=== PATIENT | female | born 2000 | race Caucasian/White ===

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

== ENCOUNTER 2022-09-09 14:04 | Emergency (ER) | payer BC ==
--- OUTSIDE RECORDS SUMMARY | 2022-09-09 14:12 | XMS REPORT | Continuity of Care Document ---
:2000 Author Organization [facility] t Address [address] [place] [address] [address] [place] [address] Care Team Providers Name Role Phone TORI POSADA Primary Care Physician Unavailable MITCHELL JOSHUA Attending Clinician Unavailable Mitchell Novak Attending Clinician Unknown, Attending Attending Clinician Unavailable Doctor Unassigned, [place] Attending Clinician Unavailable MARGARET DOVE Attending Clinician Unavailable Nurse, [facility] Attending Clinician Unavailable Tori Posada MD Attending Clinician Lynda Montesinos MD Attending Clinician Margaret Dove MD Attending Clinician Juan Nayak MD Attending Clinician Laura Couch MD Attending Clinician TORI POSADA Attending Clinician Unavailable Pob, [facility] Lab Main Attending Clinician Unavailable Ultrasound, [facility] Attending Clinician Unavailable Guerita Dugan MD Attending Clinician GUERITA DUGAN Attending Clinician Unavailable Milagros Peralat MD Attending Clinician [phone] MARGARET DOVE Admitting Clinician Unavailable Juan Nayak MD Admitting Clinician JUAN NAYAK Admitting Clinician Unavailable Margaret Dove MD Admitting Clinician Milagros Peralta MD Admitting Clinician [phone] Payers Payer Name Policy Type Policy Number Effective Date Expiration Date Paula childress [facility] [id number] 2016 EMPLOYEE PLAN 00:00:00 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 6-11 ity of 00:00: [address] Normal Normal Disease Active 2020-0 Univers spontaneou spontaneou 6-11 [place] of s vaginal s vaginal [place] 00 [facility] Uterine Uterine Disease Active 2020-0 Univers atony, atony, 6-11 [place] , [place] , current 00 [facility] hospital Br anch ation ation Other Other Disease Active 2020-0 Univers immediate immediate 6-11 [place] hemorrhage hemorrhage 00 [place] [facility] [facility] Recurrent Recurrent Disease Active 2020-0 Uni vers UTI UTI 1-20 ity of (urinary (urinary 00:00: [place] tract tract 00 Medical infection) infection) Br anch complicati complicati ng ng High risk High risk Disease Active 2020-0 Uni vers teen teen 1-19 [place] in third in third 00 [facility] trimester trimester Bran ch Nausea & Nausea & Disease Active 2020-0 Unive rs vomiting vomiting 1-19 ity of 00:00: [place] 00 [facility] 17 weeks 17 weeks Disease Active 2020-0 Unive rs gestation gestation 1-19 ity of of of 00:00: [place] 00 [facility] Obesity in Obesity in Disease Active 2020-0 U nivers 1-19 ity of 00:00: [address] 37 weeks 37 weeks Disease Active 2020-0 Unive rs gestation gestation 1-19 ity of of of 00:00: [place] 00 [facility] Allergies, Adverse Reactions, Alerts Allergy Allergy Status Severity Reaction(s) Onset Inactive Treating Comm ents Source Name Type Date Date Clinician NO KNOWN Drug Active [facility] ALLERGIE Class ity of S [place] [facility] [place] Social History Social Habit Start Date Stop Date Quantity Comments Source ASSERTION 2019-01-22 [facility] 00:[facility]00 [facility] Exposure to Not sure University of SARS-CoV-2 [place] [facility] (event) Branch History SDWA University o f Alcohol Std [place] [facility] Drinks Branch History [facility] o f Alcohol Binge [place] [facility] al Branch Alcohol intake 2022-02-21 2022-02-21 Lifetime University of 00:00:00 00:00:00 non-drinker [facility] (finding) Branch Tobacco use and 2022-02-21 2022-02-21 Former smokeless Uni versity of exposure 00:00:00 00:00:00 tobacco user [facility] Branch Tobacco Comment 2022-02-21 2022-02-21 past use of vapes Un iversity of 00:00:00 00:00:00 [place] [facility] [place] History SDOH 2019-02-11 2019-02-11 1 University o f Alcohol Frequency 00:00:00 [facility]:00:00 [facility] [place] Sex Assigned At [birth year] Universit y of 00:00:00 [facility]:00 [facility] Smoking Status Start Date Stop Date Source Never smoked tobacco [facility] Medications Ordered Filled Start Stop Current Ordering Indication Dosage Frequency Signature Comments Components Source Medication Medication Date Date Medication? Clinician (SIG) Name Name cefTRIAXone 2021-04- No [id number] 500mg Univers (ROCEPHIN) 04-23 ity of injection 23:30: 22:52 [place] 500 mg 00 :00 [facility] Branch cefTRIAXone 2021-04- No [id number] 500mg 500 mg, Univers (ROCEPHIN) 04-23 Intramuscu it y of injection 23:30: 22:52 lar, ONCE, [place] 500 mg 00 :00 1 dose, On Medical [place] Branch 02/21/22 at 1830, LATOSHA
Re ason for Anti-Infec tive: Empiric Therapy for Suspected Infection< br>Empiric Therapy Site: Pelvic
Duration of therapy: 72 hours 2021-04 Yes Take by Univer s vit 04-23 mouth. ity of calc,iron,f 17:15: [place] olic 36 Medical ( Branch VITAMIN ORAL) doxycycline 2021-04- No [id number] 100mg Take 1 Univers monohydrate 04-23 11-11 capsule by i ty of 100 mg 00:00: 05:59 mouth in [place] capsule 00 :00 the Medical morning Branch and 1 capsule in the evening. Do all this for 7 days. 2019-0 Yes Take by Univer s vit 6-13 mouth. ity of calc,iron,f 23:47: [place] [address] Medical ( Branch VITAMIN ORAL) 0 Yes Take by Univer s vit 6-13 mouth. ity of calc,iron,f 23:47: [place] [address] Medical ( Branch VITAMIN ORAL) 0 Yes Take by Videostirer s vit 6-13 mouth. ity of calc,iron,f 18:47: [place] [address] Medical ( Branch VITAMIN ORAL) cephALEXin 2019-0 Yes [id number] 500mg Take 1 Univers 500 mg 6-13 capsule by ity of capsule 00:00: mouth 3 [place] 00 (three) Medical times Branch daily. docusate 2020-0 Yes [id number] 240mg Take 1 Un sonido calcium 240 6-13 capsule by it y of mg capsule 00:00: mouth once [place] 00 daily as Medical needed for Branch Constipati on. ferrous 2020-0 Yes [id number] 325mg Take 1 Uni vers sulfate 325 6-13 tablet by ity of mg (65 mg 00:00: mouth 2 [place] iron) 00 (two) Medical tablet times Branch daily. ibuprofen 2019-0 Yes [id number] 600mg Take 1 U nivers 600 mg 6-13 tablet by ity of tablet 00:00: mouth [place] 00 every 6 Medical (six) Branch hours as needed (Pain). Take with food or milk. cephALEXin 2020-0 Yes [id number] 500mg Take 1 Univers 500 mg 6-13 capsule by ity of capsule 00:00: mouth 3 [place] 00 (three) Medical times Branch daily. docusate 2020-0 Yes [id number] 240mg Take 1 Un sonido calcium 240 6-13 capsule by it y of mg capsule 00:00: mouth once [place] 00 daily as Medical needed for Branch Constipati on. ferrous 2020-0 Yes [id number] 325mg Take 1 Uni vers sulfate 325 6-13 tablet by ity of mg (65 mg 00:00: mouth 2 [place] iron) 00 (two) Medical tablet times Branch daily. ibuprofen 2020-0 Yes [id number] 600mg Take 1 U nivers 600 mg 6-13 tablet by ity of tablet 00:00: mouth [place] 00 every 6 Medical (six) Branch hours as needed (Pain). Take with food or milk. cephALEXin 2020-0 Yes [id number] 500mg Take 1 Univers 500 mg 6-13 capsule by ity of capsule 00:00: mouth 3 [place] 00 (three) Medical times Branch daily. docusate 2020-0 Yes [id number] 240mg Take 1 Un sonido calcium 240 6-13 capsule by it y of mg capsule 00:00: mouth once [place] 00 daily as Medical needed for Branch Constipati on. ferrous 2020-0 Yes [id number] 325mg Take 1 Uni vers sulfate 325 6-13 tablet by ity of mg (65 mg 00:00: mouth 2 [place] iron) 00 (two) Medical tablet times Branch daily. ibuprofen 2020-0 Yes [id number] 600mg Take 1 U nivers 600 mg 6-13 tablet by ity of tablet 00:00: mouth [place] 00 every 6 Medical (six) Branch hours as needed (Pain). Take with food or milk. cephALEXin 2020-0 Yes [id number] 500mg Take 1 Univers 500 mg 6-13 capsule by ity of capsule 00:00: mouth 3 00 (three) Medical times Branch daily. docusate 2020-0 Yes [id number] 240mg Take 1 Un sonido calcium 240 6-13 capsule by it y of mg capsule 00:00: mouth once [place] 00 daily as Medical needed for Branch Constipati on. ferrous 2020-0 Yes [id number] 325mg Take 1 Uni vers sulfate 325 6-13 tablet by ity of mg (65 mg 00:00: mouth 2 [place] iron) 00 (two) Medical tablet times Branch daily. ibuprofen 2020-0 Yes [id number] 600mg Take 1 U nivers 600 mg [...] Yes 325mg 325 mg, Univer s sulfate -12 Oral, TID ity of tablet 325 13:00: MEALS, [place] mg 00 First dose Medical on Fri Branch 10/01/19 at 0800, Until Discontinu ed, Routine NaCl 0.9% 2020-0 Yes 1000mL at 100 [facility] ers (NS) IV 6-12 mL/hr, IV ity of infusion 04:00: [place]fusion, [place] 1,000 mL 00 CONTINUOUS Medic al , Starting Branch [facility] 09/30/19 at 2300, Until Discontinu ed, Routine ceFAZolin 0 2020- No 1000mg 1,000 mg, [facility] (ANCEF) 09-2912 IV ity of 1,000 mg in 19:00: 08:08 Piggyback, [place] NaCl 0.9% 00 :00 Q6H ABX, 3 Medi fabby (NS) 50 mL doses, [place] MINI-BAG First dose on [place] 09/30/19 at 1400, Last dose on Fri10/01/19 at 0200, 50 mL
Reas on for Anti-Infec tive: Empiric Non-Surgic al Prophylaxi s
Durat ion of therapy: 72 hours
S pecific indication : Endometrit is prophylaxi s lactated 2019-0 2020- No 1000mL at 999 [facility] ers ringers IV 09-29-11 mL/hr, ity of infusion 17:45: 17:47 1,000 mL, [place] 1,000 mL 00 :00 IV Medical Infusion, [place] ONCE, 1 dose, [facility] 09/30/19 at 1300, STAT loperamide 2019-0 Yes 2mg 2 mg, Univer s (IMODIUM -11 Oral, ity of A-D) 14:26: Q4HPRN, [place] capsule 2 19 Starting Medica l mg [facility] 09/30/19 at 0926, Until Discontinu ed, Routine, Diarrhea 2019-0 Yes 1{tbl} 1 tablet, Un sonido vitamin -11 Oral, ity of w/FA 14:00: DAILY, [place] (PRENATABS 00 First dose Med ical RX) tablet on [place] Branch 1 tablet 09/30/19 at 0900, Until Discontinu ed, Routine miSOPROStol 2019- 2020- No 1000ug 1,000 mcg, Univers (CYTOTEC) 09-29 Rectal, ity of tablet 13:00: 12:58 QID, 1 [place] 1,000 mcg 00 :00 dose, Medical First dose Branch on [facility] 09/30/19 at 0800, Routine ceFAZolin 2019-2019- No 2000mg 2 g (2,000 Univers in dextrose 09-29 mg), IV ity of (iso-os) 12:45: 12:06 [place] (ANCEF) 2 00 :00 ONCE, 1 Medical gram/100 mL dose, [facility] Piggyback 2 09/30/19 at g 0745, 100 mL
Reas on for Anti-Infec tive: Empiric Non-Surgic al Prophylaxi s
Durat ion of therapy: 72 hours LR 1000 mL 2019-0 Yes at 125 Unive rs + oxytocin 6-11 mL/hr, IV ity of 20 units IV 12:00: Infusion, [place] Solution 00 CONTINUOUS Medic al , Starting Branch [facility] 09/30/19 at 0700, Until Discontinu ed, LATOS[place] oxytocin 2019-0 Yes 20U 20 Units, Univ ers (PITOCIN) 09-29 IV ity of injection 11:45: [place] 20 Units 00 CONTINUOUS Medic al , Starting Branch [facility] 09/30/19 at 0645, Until Discontinu ed, Routine carboprost 2019-0 2019- No 250ug 250 mcg, U nivers (HEMABATE) 09-29 Intramuscu it y of injection 11:45: 11:00 lar, ONCE, [place] 250 mcg 00 :00 1 dose, Medical [facility] Branch 09/30/19 at 0645, Routine oxytocin 2019-0 2020- No at 999 Univer s (PITOCIN) 09-2911 mL/hr, IV ity of 40 Units in 11:45: 11:45 Infusion, [place] lactated 00 :00 ONCE, 1 Medical ringers dose, [facility] Branch 1,000 mL IV 6/11/20 at infusion 0645, Routine ondansetron 2019-0 2020- No 4mg 4 mg, Slow Univers (ZOFRAN 09-29 IV Push, ity of (PF)) 11:30: 10:39 ONCE, 1 [place] injection 4 00 :00 dose, [place] Med ical mg 09/30/19 at Branch 0630, Routine carboprost 2020-0 2020- No 250ug 250 mcg, U nivers (HEMABATE) 09-29 Intramuscu it y of injection 11:15: 10:00 lar, ONCE, [place] 250 mcg 00 :00 1 dose, Medical [place] Branch 09/30/19 at 0615, Routine rho(D) 2019-0 Yes 300ug 300 mcg, Univer s immune 09-29 Intramuscu ity of globulin 11:03: lar, ONCE, [place] F as (RHOGAM) 30 For 1 Medical syringe 300 dose, Branch mcg Conditiona l, Routine ibuprofen 2020-0 Yes 600mg 600 mg, Univ ers (IBU) 09-29 Oral, ity of tablet 600 10:56: Q6HPRN, [place] mg 37 Starting Medical [place] Branch 09/30/19 at 0556, Until Discontinu ed, Routine, Pain (scale 4-6) acetaminoph 2020-0 Yes 650mg 650 mg, Un sonido en 09-29 Oral, ity of (TYLENOL) 10:56: Q6HPRN, [place] tablet 650 37 Starting Medic al mg [facility] Branch 09/30/19 at 0556, Until Discontinu ed, Routine, Pain (scale 1-3) diphenhydrA 2020-0 Yes 25mg 25 mg, Univ ers MINE 09-29 Oral, ity of (BENADRYL) 10:56: Q6HPRN, [place] tablet 25 37 Starting Medica l mg [place] Branch 09/30/19 at 0556, Until Discontinu ed, Routine, Sleep, Itching diphenhydrA 2020-0 Yes 25mg 25 mg, IV U nivers MINE-0.9 % 09-29 Piggyback, ity of sod.chlr 10:56: Administer [place] as (BENADRYL) 37 over 30 Medica l 25 mg/50 mL Minutes, Bran ch piggyback Q6HPRN, 25 mg Starting [place] 09/30/19 at 0556, Until Discontinu ed, Routine, Itching ondansetron 2020-0 Yes 4mg 4 mg, Slow Univers (ZOFRAN 6- IV Push, ity of (PF)) 10:56: Q8HPRN, [place] injection 4 36 Starting Medi fabby mg [place] Branch 09/30/19 at 0556, Until Discontinu ed, Routine, Nausea and Vomiting (N/V) simethicone 2020-0 Yes 160mg 160 mg, Un sonido (GAS RELIEF 09-29 Oral, ity of (SIMETHICON 10:56: PC+HSPRN, [place] E)) 36 Starting Medical chewable [place] tablet 160 09/30/19 at mg 0556, Until Discontinu ed, Routine, Gas docusate 2020-0 Yes 240mg 240 mg, Unive rs calcium 6-11 Oral, ity of (SURFAK) 10:56: QDAILYPRN, [place] capsule 240 36 Starting Medi fabby mg [facility] Branch 09/30/19 at 0556, Until Discontinu ed, Routine, Constipati on magnesium 2020-0 Yes 30mL 30 mL, Univer s hydroxide 09-29 Oral, ity of (MILK OF 10:56: QDAILYPRN, [place] MAGNESIA) 36 Starting Medica l 400 mg/5 mL [facility] suspension 09/30/19 at 30 mL 0556, Until Discontinu ed, Routine, Constipati on benzocaine- 2020-0 Yes Topical, [place] menthol -11 PRN, ity of (DERMOPLAST 10:56: Starting [place] ) 20-0.5 % 36 [place] Medical topical 09/30/19 at [place] spray 0556, Until Discontinu ed, Routine, Perineum discomfort diphenoxyla 2019-0 2020- No 1{tbl} 1 tablet, Univers te-atropine 09-29 Oral, ity of (LOMOTIL) 10:04: 10:39 ONCE, 1 [place] 2.5-0.025 00 :00 dose, [place] Medic al mg per 09/30/19 at [place] tablet 1 0515, tablet Routine FENTanyl 2 2019-0 2020- No Intra-op Un sonido mcg/mL + 09-29-11 ity of bupivacaine 08:41: 13:16 [place] 0.125% in 00 :27 Medical NS 250 mL Branch epidural bag nalbuphine 2020- No 10mg 10 mg, Univ ers (NUBAIN) 09-29 Intravenou ity of injection 06:05: 11:03 s, Q2HPRN, [place] 10 mg 24 :26 4 doses, Medical Starting Branch [place] 09/30/19 at 0105, Until [place] 09/30/19 at 0603, Routine, Pain (scale 7-10) lactated 2020- No 1000mL at 125 Univ ers ringers IV 09-29 mL/hr, ity of infusion 05:00: 11:03 1,000 mL, [place] 1,000 mL 00 :26 IV Medical Infusion, Branch CONTINUOUS , Starting [place] 09/30/19 at 0000, Until [place] 09/30/19 at 0603, Routine acetaminoph 2019- No 1000mg 1,000 mg, Univers en 09-29 Oral, ity of (TYLENOL) 03:58: 04:48 ONCE, 1 [place] tablet 00 :00 dose, Wed Medical 1,000 mg 09/29/19 at [facility] h 2300, Routine lactated 2020- No 1000mL at 1,000 Un sonido ringers IV 09-29 mL/hr, ity of infusion 03:50: 11:03 1,000 mL, [place] 1,000 mL 00 :26 IV Medical Infusion, Branch ONCE, 1 dose, 09/29/19 at 2300, Routine 2020-0 Yes Take by [facility] s vit 6-11 mouth. ity of calc,iron,f 02:06: [facility] [place] [facility] Medical ( Branch VITAMIN ORAL) 2020-0 Yes Take by Videostir s vit 5-15 mouth. ity of calc,iron,f 13:44: [facility] [place] [facility] Medical ( Branch VITAMIN ORAL) 2020-0 Yes Take by Videostirer s vit 5-15 mouth. ity of calc,iron,f 13:44: [place] [address] Medical ( Branch VITAMIN ORAL) 2020-0 Yes Take by Videostirer s vit 5-15 mouth. ity of calc,iron,f 13:44: [place] [address] Medical ( Branch VITAMIN ORAL) 2020-0 Yes [facility] mouth. ity of calc,iron,f 13:44: [address] ( Branch VITAMIN ORAL) 2020-0 Yes Take by Univer s vit 5-15 mouth. ity of calc,iron,f 13:44: [address] ( Branch VITAMIN ORAL) 2020-0 Yes Take by Univer s vit 5-15 mouth. ity of calc,iron,f 13:44: [address] ( Branch VITAMIN ORAL) 2020-0 Yes Take by Univer s vit 5-15 mouth. ity of calc,iron,f 13:44: [address] ( Branch VITAMIN ORAL) 2020-0 Yes Take by Univer s vit 5-15 mouth. ity of calc,iron,f 13:44: [address] ( Branch VITAMIN ORAL) 2020-0 Yes Take by Univer s vit 5-15 mouth. ity of calc,iron,f 13:44: [address] ( Branch VITAMIN ORAL) 2020-0 Yes Take by Univer s vit 5-14 mouth. ity of calc,iron,f 16:25: [address] ( Branch VITAMIN ORAL) 2020-0 Yes Take by Univer s vit 5-14 mouth. ity of calc,iron,f 16:25: [address] ( Branch VITAMIN ORAL) terbutaline 0 2020- No .25mg 0.25 mg, Univers (BRETHINE) - 05-14 Subcutaneo it y of injection 13:00: 12:07 , ONCE, [place] 0.25 mg 00 :00 1 dose, Medical [place] Branch 09/02/19 at 0800, Routine lactated 2020-0 Yes 1000mL at 125 Unive rs ringers IV 5-14 mL/hr, ity of infusion 12:00: 1,000 mL, [place] 1,000 mL 00 IV Medical Infusion, Branch CONTINUOUS , Starting [place] 09/02/19 at 0700, Until Discontinu ed, Routine lactated 2019-0 2020- No 1000mL at 999 Univ ers ringers IV 5-14 05-14 mL/hr, ity of infusion 12:00: 11:00 1,000 mL, [place] 1,000 mL 00 :00 IV Medical Infusion, Branch ONCE, 1 dose, [place] 09/02/19 at 0700, Routine doxylamine- 2020-0 Yes [id number] 1{tbl} Take 1 Univers pyridoxine, 4-23 tablet by ity of vit B6, 00:00: mouth at [place] [address] bedtime. Medic al 10-10 mg Branch per tablet doxylamine- 2020-0 Yes [id number] 1{tbl} Take 1 Univers pyridoxine, 4-23 tablet by ity of vit B6, 00:00: mouth at [place] [address] bedtime. Medic al 10-10 mg Branch per tablet doxylamine- 2020-0 Yes [id number] 1{tbl} Take 1 Univers pyridoxine, 4-23 tablet by ity of vit B6, 00:00: mouth at [place] [address] bedtime. Medic al 10-10 mg Branch per tablet doxylamine- 2020-0 Yes [id number] 1{tbl} Take 1 Univers pyridoxine, 4-23 tablet by ity of vit B6, 00:00: mouth at [place] [address] bedtime. Medic al 10-10 mg Branch per tablet doxylamine- 2020-0 Yes [id number] 1{tbl} Take 1 Univers pyridoxine, 4-23 tablet by ity of vit B6, 00:00: mouth at [place] [address] bedtime. Medic al 10-10 mg Branch per tablet doxylamine- 2020-0 Yes [id number] 1{tbl} Take 1 Univers pyridoxine, 4-23 tablet by ity of vit B6, 00:00: mouth at [place] [address] bedtime. Medic al 10-10 mg Branch per tablet doxylamine- 2020-0 Yes [id number] 1{tbl} Take 1 Univers pyridoxine, 4-23 tablet by ity of vit B6, 00:00: mouth at [place] [address] bedtime. Medic al 10-10 mg Branch per tablet doxylamine- 2020-0 Yes [id number] 1{tbl} Take 1 Univers pyridoxine, 4-23 tablet by ity of vit B6, 00:00: mouth at [place] [address] bedtime. Medic al 10-10 mg Branch per tablet doxylamine- 2020-0 Yes [id number] 1{tbl} Take 1 Univers pyridoxine, 4-23 tablet by ity of vit B6, 00:00: mouth at [facility] 00 bedtime. Medic al 10-10 mg Branch per tablet doxylamine- 2020-0 Yes [id number] 1{tbl} Take 1 Univers pyridoxine, 4-23 tablet by ity of vit B6, 00:00: mouth at [facility] 00 bedtime. Medic al 10-10 mg Branch per tablet doxylamine- 2020-0 Yes [id number] 1{tbl} Take 1 Univers pyridoxine, 4-23 tablet by ity of vit B6, 00:00: mouth at [facility] 00 bedtime. Medic al 10-10 mg Branch per tablet doxylamine- 2020-0 Yes [id number] 1{tbl} Take 1 Univers pyridoxine, 4-23 tablet by ity of vit B6, 00:00: mouth at [facility] 00 bedtime. Medic al 10-10 mg Branch per tablet doxylamine- 2020-0 Yes [id number] 1{tbl} Take 1 Univers pyridoxine, 4-23 tablet by ity of vit B6, 00:00: mouth at [facility] 00 bedtime. Medic al 10-10 mg Branch per tablet doxylamine- 2020-0 Yes [id number] 1{tbl} Take 1 Univers pyridoxine, 4-23 tablet by ity of vit B6, 00:00: mouth at [facility] 00 bedtime. Medic al 10-10 mg Branch per tablet doxylamine- 2020-0 Yes [id number] 1{tbl} Take 1 Univers pyridoxine, 4-23 tablet by ity of vit B6, 00:00: mouth at [facility] 00 bedtime. Medic al 10-10 mg Branch per tablet doxylamine- 2020-0 2020- No [id number] 1{tbl} Take 1 Univers pyridoxine, 4-23 06-13 tablet by it y of vit B6, 00:00: 00:00 [facility] :00 bedtime. Medic al 10-10 mg Branch per tablet sulfamethox 2020-0 Yes [id number] 1{tbl} Take 1 Univers azole-trime 4-16 tablet by ity of thoprim 00:00: mouth 2 [place] 800-160 mg 00 (two) Medical per tablet times Branch daily. sulfamethox 2020-0 Yes [id number] 1{tbl} Take 1 Univers azole-trime 4-16 tablet by ity of thoprim 00:00: mouth 2 [place] 800-160 mg 00 (two) Medical per tablet times Branch daily. sulfamethox 2020-0 Yes [id number] 1{tbl} Take 1 Univers azole-trime 4-16 tablet by ity of thoprim 00:00: mouth 2 [place] 800-160 mg 00 (two) Medical per tablet times Branch daily. sulfamethox 2020-0 Yes [id number] 1{tbl} Take 1 Univers azole-trime 4-16 tablet by ity of thoprim 00:00: mouth 2 [place] 800-160 mg 00 (two) Medical per tablet times Branch daily. sulfamethox 2020-0 Yes [id number] 1{tbl} Take 1 Univers azole-trime 4-16 tablet by ity of thoprim 00:00: mouth 2 [place] 800-160 mg 00 (two) Medical per tablet times Branch daily. sulfamethox 2020-0 Yes [id number] 1{tbl} Take 1 Univers azole-trime 4-16 tablet by ity of thoprim 00:00: mouth 2 [place] 800-160 mg 00 (two) Medical per tablet times Branch daily. sulfamethox 2020-0 Yes [id number] 1{tbl} Take 1 Univers azole-trime 4-16 tablet by ity of thoprim 00:00: mouth 2 [place] 800-160 mg 00 (two) Medical per tablet times Branch daily. sulfamethox 2020-0 Yes [id number] 1{tbl} Take 1 Univers azole-trime 4-16 tablet by ity of thoprim 00:00: mouth 2 [place] 800-160 mg 00 (two) Medical per tablet times Branch daily. sulfamethox 2020-0 Yes [id number] 1{tbl} Take 1 Univers azole-trime 4-16 tablet by ity of thoprim 00:00: mouth 2 [place] 800-160 mg 00 (two) Medical per tablet times Branch daily. sulfamethox 2020-0 Yes [id number] 1{tbl} Take 1 Univers azole-trime 4-16 tablet by ity of thoprim 00:00: mouth 2 [place] 800-160 mg 00 (two) Medical per tablet times Branch daily. sulfamethox 2020-0 Yes [id number] 1{tbl} Take 1 Univers azole-trime 4-16 tablet by ity of thoprim 00:00: mouth 2 [place] 800-160 mg 00 (two) Medical per tablet times Branch daily. sulfamethox 2020-0 Yes [id number] 1{tbl} Take 1 Univers azole-trime 4-16 tablet by ity of thoprim 00:00: mouth 2 [place] 800-160 mg 00 (two) Medical per tablet times Branch daily. sulfamethox 2020-0 Yes [id number] 1{tbl} Take 1 Univers azole-trime 4-16 tablet by ity of thoprim 00:00: mouth 2 [place] 800-160 mg 00 (two) Medical per tablet times Branch daily. sulfamethox 2020-0 Yes [id number] 1{tbl} Take 1 Univers azole-trime 4-16 tablet by ity of thoprim 00:00: mouth 2 [place] 800-160 mg 00 (two) Medical per tablet times Branch daily. sulfamethox 2020-0 Yes [id number] 1{tbl} Take 1 Univers azole-trime 4-16 tablet by ity of thoprim 00:00: mouth 2 [place] 800-160 mg 00 (two) Medical per tablet times Branch daily. sulfamethox 2020-0 Yes [id number] 1{tbl} Take 1 Univers azole-trime 4-16 tablet by ity of thoprim 00:00: mouth 2 [place] 800-160 mg 00 (two) Medical per tablet times Branch daily. sulfamethox 2020-0 Yes [id number] 1{tbl} Take 1 Univers azole-trime 4-16 tablet by ity of thoprim 00:00: mouth 2 [place] 800-160 mg 00 (two) Medical per tablet times Branch daily. sulfamethox 2020-0 2020- No [id number] 1{tbl} Take 1 Univers azole-trime 4-16 06-13 tablet by it y of thoprim 00:00: 00:00 mouth 2 [place] 800-160 mg 00 :00 (two) Medical per tablet times Branch daily. sulfamethox 2020-0 Yes [id number] 1{tbl} Take 1 Univers azole-trime 3-22 tablet by ity of thoprim 00:00: mouth 2 [place] 800-160 mg 00 (two) Medical per tablet times Branch daily. sulfamethox 2020-0 2020- No [id number] 1{tbl} Take 1 [facility] azole-trime 3-22 04-16 tablet by it y of thoprim 00:00: 00:00 mouth 2 [place] 800-160 mg 00 :00 (two) Medical per tablet times Branch daily. sulfamethox 2020-0 2020- No [id number] 1{tbl} Take 1 [facility] azole-trime 3-22 04-16 tablet by it y of thoprim 00:00: 00:00 mouth 2 [place] 800-160 mg 00 :00 (two) Medical per tablet times Branch daily. cephALEXin 2020-0 Yes [id number] 500mg Take 1 [facility] 500 mg 1-28 capsule by ity of capsule 00:00: mouth [place] 00 daily. Medical Branch cephALEXin 2020-0 Yes [id number] 500mg Take 1 [facility] 500 mg 1-28 capsule by ity of capsule 00:00: mouth [place] 00 daily. Medical Branch cephALEXin 2020-0 Yes [id number] 500mg Take 1 [facility] 500 mg 1-28 capsule by ity of capsule 00:00: mouth [place] 00 daily. Medical Branch cephALEXin 2020-0 Yes [id number] 500mg Take 1 [facility] 500 mg 1-28 capsule by ity of capsule 00:00: mouth [place] 00 daily. Medical Branch cephALEXin 2020-0 Yes [id number] 500mg Take 1 [facility] 500 mg 1-28 capsule by ity of capsule 00:00: mouth [place] 00 daily. Medical Branch cephALEXin 2020-0 Yes [id number] 500mg Take 1 [facility] 500 mg 1-28 capsule by ity of capsule 00:00: mouth [place] 00 daily. Medical Branch cephALEXin 2020-0 Yes [id number] 500mg Take 1 [facility] 500 mg 1-28 capsule by ity of capsule 00:00: mouth [place] 00 daily. Medical Branch cephALEXin 2020-0 Yes [id number] 500mg Take 1 [facility] 500 mg 1-28 capsule by ity of capsule 00:00: mouth [place] 00 daily. Medical Branch cephALEXin 2020-0 Yes [id number] 500mg Take 1 [facility] 500 mg 1-28 capsule by ity of capsule 00:00: mouth [place] 00 daily. Medical Branch cephALEXin 2020-0 Yes [id number] 500mg Take 1 [facility] 500 mg 1-28 capsule by ity of capsule 00:00: mouth [place] 00 daily. Medical Branch cephALEXin 2020-0 Yes [id number] 500mg Take 1 [facility] 500 mg 1-28 capsule by ity of capsule 00:00: mouth [place] 00 daily. Medical Branch cephALEXin 2020-0 Yes [id number] 500mg Take 1 [facility] 500 mg 1-28 capsule by ity of capsule 00:00: mouth [place] 00 daily. Medical Branch cephALEXin 2020-0 Yes [id number] 500mg Take 1 [facility] 500 mg 1-28 capsule by ity of capsule 00:00: mouth [place] 00 daily. Medical Branch cephALEXin 2020-0 Yes [id number] 500mg Take 1 [facility] 500 mg 1-28 capsule by ity of capsule 00:00: mouth [place] 00 daily. Medical Branch cephALEXin 2020-0 Yes [id number] 500mg Take 1 [facility] 500 mg 1-28 capsule by ity of capsule 00:00: mouth [place] 00 daily. Medical Branch cephALEXin 2020-0 Yes [id number] 500mg Take 1 [facility] 500 mg 1-28 capsule by ity of capsule 00:00: mouth [place] 00 daily. Medical Branch cephALEXin 2020-0 Yes [id number] 500mg Take 1 [facility] 500 mg 1-28 capsule by ity of capsule 00:00: mouth [place] 00 daily. Medical Branch cephALEXin 2020-0 Yes [id number] 500mg Take 1 [facility] 500 mg 1-28 capsule by ity of capsule 00:00: mouth [place] 00 daily. Medical Branch cephALEXin 2020-0 Yes [id number] 500mg Take 1 [facility] 500 mg 1-28 capsule by ity of capsule 00:00: mouth [place] 00 daily. Medical Branch cephALEXin 2020-0 Yes [id number] 500mg Take 1 [facility] 500 mg 1-28 capsule by ity of capsule 00:00: mouth [place] 00 daily. Medical Branch cephALEXin 2020-0 Yes [id number] 500mg Take 1 [facility] 500 mg 1-28 capsule by ity of capsule 00:00: mouth [place] 00 daily. Medical Branch cephALEXin 2020-0 Yes [id number] 500mg Take 1 [facility] 500 mg 1-28 capsule by ity of capsule 00:00: mouth [place] 00 daily. Medical Branch cephALEXin 2020-0 Yes [id number] 500mg Take 1 [facility] 500 mg 1-28 capsule by ity of capsule 00:00: mouth [place] 00 daily. Medical Branch cephALEXin 2020-0 Yes [id number] 500mg Take 1 [facility] 500 mg 1-28 capsule by ity of capsule 00:00: mouth [place] 00 daily. Medical Branch cephALEXin 2020-0 Yes [id number] 500mg Take 1 [facility] 500 mg 1-28 capsule by ity of capsule 00:00: mouth [place] 00 daily. Medical Branch cephALEXin 2020-0 Yes [id number] 500mg Take 1 [facility] 500 mg 1-28 capsule by ity of capsule 00:00: mouth [place] 00 daily. Medical Branch cephALEXin 2020-0 Yes [id number] 500mg Take 1 [facility] 500 mg 1-28 capsule by ity of capsule 00:00: mouth [place] 00 daily. Medical Branch cephALEXin 2020-0 Yes [id number] 500mg Take 1 [facility] 500 mg 1-28 capsule by ity of capsule 00:00: mouth [place] 00 daily. Medical Branch cephALEXin 2020-0 Yes [id number] 500mg Take 1 [facility] 500 mg 1-28 capsule by ity of capsule 00:00: mouth [place] 00 daily. Medical Branch cephALEXin 2020-0 Yes [id number] 500mg Take 1 [facility] 500 mg 1-28 capsule by ity of capsule 00:00: mouth [place] 00 daily. Medical Branch cephALEXin 2020-0 Yes [id number] 500mg Take 1 [facility] 500 mg 1-28 capsule by ity of capsule 00:00: mouth [place] 00 daily. Medical Branch cephALEXin 2020-0 2020- No [id number] 500mg Take 1 [facility] 500 mg 1-28 06-13 capsule by ity of capsule 00:00: 00:00 mouth [place] 00 :00 daily. Medical Branch 2020-0 Yes Take by Univer s vit 1-20 mouth. ity of calc,iron,f 08:44: [place] olic 00 Medical ( Branch VITAMIN ORAL) 2020-0 Yes Take by Univer s vit 1-20 mouth. ity of calc,iron,f 08:44: [place] olic 00 Medical ( Branch VITAMIN ORAL) 2020-0 Yes Take by Univer s vit 1-20 mouth. ity of calc,iron,f 08:44: [place] olic 00 Medical ( Branch VITAMIN ORAL) 2020-0 Yes Take by Univer s vit 1-20 mouth. ity of calc,iron,f 08:44: [place] [id number] Medical ( Branch VITAMIN ORAL) 2020-0 Yes Take by Univer s vit 1-20 mouth. ity of calc,iron,f 08:44: [place] [id number] Medical ( Branch VITAMIN ORAL) 2020-0 Yes Take by Univer s vit 1-20 mouth. ity of calc,iron,f 08:44: [place] [id number] Medical ( Branch VITAMIN ORAL) 2020-0 Yes Take by Univer s vit 1-20 mouth. ity of calc,iron,f 08:44: [place] [id number] Medical ( Branch VITAMIN ORAL) 2020-0 Yes Take by Univer s vit 1-20 mouth. ity of calc,iron,f 08:44: [place] [id number] Medical ( Branch VITAMIN ORAL) 2020-0 Yes Take by Univer s vit 1-20 mouth. ity of calc,iron,f 08:44: [place] [id number] Medical ( Branch VITAMIN ORAL) 2020-0 Yes Take by Univer s vit 1-20 mouth. ity of calc,iron,f 08:44: [place] [id number] Medical ( Branch VITAMIN ORAL) 2020-0 Yes Take by Univer s vit 1-20 mouth. ity of calc,iron,f 08:44: [place] [id number] Medical ( Branch VITAMIN ORAL) 2020-0 Yes Take by Univer s vit 1-20 mouth. ity of calc,iron,f 08:44: [place] [id number] Medical ( Branch VITAMIN ORAL) 2020-0 Yes Take by Univer s vit 1-20 mouth. ity of calc,iron,f 08:44: [place] [id number] Medical ( Branch VITAMIN ORAL) 2020-0 Yes Take by Univer s vit 1-20 mouth. ity of calc,iron,f 08:44: [place] [id number] Medical ( Branch VITAMIN ORAL) 2020-0 Yes Take by Univer s vit 1-20 mouth. ity of calc,iron,f 08:44: [place] [id number] Medical ( Branch VITAMIN ORAL) 2020-0 Yes Take by Univer s vit 1-20 mouth. ity of calc,iron,f 08:44: [place] [id number] Medical ( Branch VITAMIN ORAL) 2020-0 Yes Take by [facility] s vit 1-20 mouth. ity of calc,iron,f 08:44: [place] [id number] Medical ( Branch VITAMIN ORAL) 2019-0 Yes Take by Univer s vit 1-20 mouth. ity of calc,iron,f 08:44: [place] [id number] Medical ( Branch VITAMIN ORAL) 2020-0 Yes Take by Univer s vit 1-20 mouth. ity of calc,iron,f 08:44: [place] [id number] Medical ( Branch VITAMIN ORAL) 2020-0 Yes Take by Univer s vit 1-20 mouth. ity of calc,iron,f 08:44: [place] [id number] Medical ( Branch VITAMIN ORAL) lactated 2020- No 500mL at [facility] 1-20 01-20 mL/hr, 500 it y of infusion 07:15: 06:31 mL, [place] 500 mL 00 :00 Intravenou Medical s, ONCE, 1 Branch dose, 05/10/19 at 0115, Routine doxylamine- Yes [id number] 1{tbl} Take 1 Univers pyridoxine, 1-20 tablet by ity of vit B6, 00:00: mouth at [place] [facility] 00 bedtime. Medic al 10-10 mg Branch per tablet doxylamine- Yes [id number] 1{tbl} Take 1 Univers pyridoxine, 1-20 tablet by ity of vit B6, 00:00: mouth at [place] [facility] 00 bedtime. Medic al 10-10 mg Branch per tablet doxylamine- 2019-0 Yes [id number] 1{tbl} Take 1 Univers pyridoxine, 1-20 tablet by ity of vit B6, 00:00: mouth at [place] [facility] 00 bedtime. Medic al 10-10 mg Branch per tablet doxylamine- 0 Yes [id number] 1{tbl} Take 1 Univers pyridoxine, 1-20 tablet by ity of vit B6, 00:00: mouth at [place] [facility] 00 bedtime. Medic al 10-10 mg Branch per tablet doxylamine- 0 Yes [id number] 1{tbl} Take 1 [facility] pyridoxine, 1-20 tablet by ity of vit B6, 00:00: mouth at [place] [facility] 00 bedtime. Medic al 10-10 mg Branch per tablet doxylamine- 2020-0 Yes [id number] 1{tbl} Take 1 Univers pyridoxine, 1-20 tablet by ity of vit B6, 00:00: mouth at [place] [facility] 00 bedtime. Medic al 10-10 mg Branch per tablet doxylamine- 2020-0 Yes [id number] 1{tbl} Take 1 Univers pyridoxine, 1-20 tablet by ity of vit B6, 00:00: mouth at [place] [facility] 00 bedtime. Medic al 10-10 mg Branch per tablet doxylamine- 2020-0 Yes [id number] 1{tbl} Take 1 [facility] pyridoxine, 1-20 tablet by ity of vit B6, 00:00: mouth at [place] [facility] 00 bedtime. Medic al 10-10 mg Branch per tablet doxylamine- 2020-0 Yes [id number] 1{tbl} Take 1 Univers pyridoxine, 1-20 tablet by ity of vit B6, 00:00: mouth at [place] [facility] 00 bedtime. Medic al 10-10 mg Branch per tablet doxylamine- 2020-0 Yes [id number] 1{tbl} Take 1 Univers pyridoxine, 1-20 tablet by ity of vit B6, 00:00: mouth at [place] [facility] 00 bedtime. Medic al 10-10 mg Branch per tablet doxylamine- 2020-0 Yes [id number] 1{tbl} Take 1 [facility] pyridoxine, 1-20 tablet by ity of vit B6, 00:00: mouth at [place] [facility] 00 bedtime. Medic al 10-10 mg Branch per tablet doxylamine- 2020-0 Yes [id number] 1{tbl} Take 1 [facility] pyridoxine, 1-20 tablet by ity of vit B6, 00:00: [facility] 00 bedtime. Medic al 10-10 mg Branch per tablet doxylamine- 2020-0 Yes [id number] 1{tbl} Take 1 [facility] pyridoxine, 1-20 tablet by ity of vit B6, 00:00: mouth at [place] [address] bedtime. Medic al 10-10 mg Branch per tablet doxylamine- 2020-0 Yes [id number] 1{tbl} Take 1 Univers pyridoxine, 1-20 tablet by ity of vit B6, 00:00: mouth at [place] [facility] 00 bedtime. Medic al 10-10 mg Branch per tablet doxylamine- 2020-0 Yes [id number] 1{tbl} Take 1 [facility] pyridoxine, 1-20 tablet by ity of vit B6, 00:00: mouth at [place] [facility] 00 bedtime. Medic al 10-10 mg Branch per tablet doxylamine- 2019-0 Yes [id number] 1{tbl} Take 1 Univers pyridoxine, 1-20 tablet by ity of vit B6, 00:00: mouth at [place] [facility] 00 bedtime. Medic al 10-10 mg Branch per tablet doxylamine- 2020- No [id number] 1{tbl} Take 1 [facility] pyridoxine, 1-20 -23 tablet by it y of vit B6, 00:00: 00:00 [facility] at [facility]) 00 :00 bedtime. Medic al 10-10 mg Branch per tablet cephALEXin 2020- No [id number] 500mg Take 1 [facility] 500 mg 1-20 - capsule by ity of capsule 00:00: 05:59 mouth 2 [place] 00 :00 [facility] Medical times [place] daily for 7 days. cephALEXin 2019- 2020- No [id number] 500mg Take 1 [facility] 500 mg 1-20 - capsule by ity of capsule 00:00: 05:59 mouth 2 [place] 00 :00 (two) Medical times [place] daily for 7 days. cephALEXin 2020- No [id number] 500mg Take 1 [facility] 500 mg 1-20 - capsule by ity of capsule 00:00: 05:59 mouth 2 [place] 00 :00 (two) Medical times [place] daily for 7 days. Immunizations Ordered Filled Immunization Date Status Comments [facility] e Immunization Name Name TDAP (ADACEL) 2019-08-05 Completed [facility] VACCINE 00:00:00 [facility] TDAP (ADACEL) 2019-08-05 Completed University of VACCINE 00:00:00 [place] [facility] TDAP (ADACEL) 2019-08-05 Completed University of VACCINE 00:00:00 [place] [facility] TDAP (ADACEL) 2019-08-05 Completed University of VACCINE 00:00:00 [place] [facility] TDAP (ADACEL) 2019-08-05 Completed University of VACCINE 00:00:00 [place] [facility] TDAP (ADACEL) 2019-08-05 Completed University of VACCINE 00:00:00 [place] [facility] TDAP (ADACEL) 2019-08-05 Completed University of VACCINE 00:00:00 [place] [facility] TDAP (ADACEL) 2019-08-05 Completed University of VACCINE 00:00:00 [facility] Branch TDAP (ADACEL) 2019-08-05 Completed University of VACCINE 00:00:00 [facility] Branch TDAP (ADACEL) 2019-08-05 Completed University of VACCINE 00:00:00 [facility] Branch TDAP (ADACEL) 2019-08-05 Completed University of VACCINE 00:00:00 [facility] Branch TDAP (ADACEL) 2019-08-05 Completed University of VACCINE 00:00:00 [facility] Branch TDAP (ADACEL) 2019-08-05 Completed University of VACCINE 00:00:00 [facility] Branch TDAP (ADACEL) 2019-08-05 Completed University of VACCINE 00:00:00 [facility] Branch TDAP (ADACEL) 2019-08-05 Completed University of VACCINE 00:00:00 [facility] Branch TDAP (ADACEL) 2019-08-05 Completed University of VACCINE 00:00:00 [facility] Branch TDAP (ADACEL) 2019-08-05 Completed University of VACCINE 00:00:00 [facility] Branch TDAP (ADACEL) 2019-08-05 Completed University of VACCINE 00:00:00 [facility] Branch TDAP (ADACEL) 2019-08-05 Completed University of VACCINE 00:00:00 [facility] Branch TDAP (ADACEL) 2019-08-05 Completed University of VACCINE 00:00:00 [facility] Branch TDAP (ADACEL) 2019-08-05 Completed [facility] of VACCINE 00:00:00 [facility] Vital Signs Vital Name Observation Time Observation Value Comments Source Systolic blood 2022-02-21 22:15:00 110 mm[Hg] [facility]iver [facility]ity of pressure [facility] Diastolic blood 2022-02-21 22:15:00 65 mm[Hg] Unive rsity of pressure [place] [facility] Heart rate 2022-02-21 22:15:00 89 /min [facility] [place] [facility] Body temperature 2022-02-21 22:15:00 37.17 [place] Univ ersity of [place] [facility] Respiratory rate 2022-02-21 22:15:00 16 /min Univ ersity of [place] [facility] Body height 2022-02-21 22:15:00 172.7 cm [facility] [place] [facility] Body weight 2022-02-21 22:15:00 96.163 kg [facility] [place] [facility] BMI 2022-02-21 22:15:00 32.23 kg/m2 [facility] [place] [facility] Oxygen saturation in 2022-02-21 22:15:00 100 /min University of Arterial blood by [facility] Pulse oximetry Branch Systolic blood 2019-10-15 20:38:00 125 mm[Hg] Univer sity of pressure [place] [facility] Diastolic blood 2019-10-15 20:38:00 78 mm[Hg] Unive rsity of pressure [place] [facility] Heart rate 2019-10-15 20:38:00 90 /min [facility]i ty [facility] [place] [facility] Body temperature 2019-10-15 20:38:00 37.11 [place] [facility] [place] [facility] Respiratory rate 2019-10-15 20:38:00 18 /min Univ ersity of [place] [facility] Body height 2019-10-15 20:38:00 172.7 cm [facility] [place] [facility] Body weight 2019-10-15 20:38:00 105.325 kg [facility] [place] [facility] BMI 2019-10-15 20:38:00 35.31 kg/m2 [facility] [place] [facility] Systolic blood 2019-10-15 20:38:00 125 mm[Hg] Univer sity of pressure [place] [facility] Diastolic blood 2019-10-15 20:38:00 78 mm[Hg] Unive rsity of pressure [place] [facility] Heart rate 2019-10-15 20:38:00 90 /min [facility] [place] [facility] Body temperature 2019-10-15 20:38:00 37.11 [place] [facility] [place] [facility] Respiratory rate 2019-10-15 20:38:00 18 /min Univ ersity of [place] [facility] Body height 2019-10-15 20:38:00 172.7 cm [facility] [place] [facility] Body weight 2019-10-15 20:38:00 105.325 kg [facility] [place] [facility] BMI 2019-10-15 20:38:00 35.31 kg/m2 [facility] [place] [facility] Body temperature 2019-10-02 12:29:00 36.67 [place] [facility] [place] [facility] Respiratory rate 2019-10-02 12:29:00 16 /min Univ ersity of [place] [facility] Oxygen saturation in 2019-10-02 12:29:00 98 /min University of Arterial blood by [facility] Pulse oximetry Branch Systolic blood 2019-10-02 05:50:00 134 mm[Hg] Univer sity of pressure [place] [facility] Diastolic blood 2019-10-02 05:50:00 89 mm[Hg] Unive rsity of pressure [place] [facility] Heart rate 2019-10-02 05:50:00 97 /min [facility] [place] [facility] Body height 2019-09-30 02:13:00 172.7 cm [facility] [place] [facility] Body weight 2019-09-30 02:13:00 116.574 kg [facility] [place] [facility] BMI 2019-09-30 02:13:00 39.08 kg/m2 [facility] [place] [facility] Body temperature 2019-10-02 12:29:00 36.67 [place] [facility] [place] [facility] Respiratory rate 2019-10-02 12:29:00 16 /min Univ ersity of [place] [facility] Oxygen saturation in 2019-10-02 12:29:00 98 /min University of Arterial blood by [facility] Pulse oximetry Branch Systolic blood 2019-10-02 05:50:00 134 mm[Hg] Univer sity of pressure [place] [facility] Diastolic blood 2019-10-02 05:50:00 89 mm[Hg] Unive rsity of pressure [place] [facility] Heart rate 2019-10-02 05:50:00 97 /min [facility] [place] [facility] Body height 2019-09-30 02:13:00 172.7 cm [facility] [place] [facility] Body weight 2019-09-30 02:13:00 116.574 kg [facility] [place] [facility] BMI 2019-09-30 02:13:00 39.08 kg/m2 [facility] [place] [facility] Systolic blood 2019-09-24 17:13:00 124 mm[Hg] Univer sity of pressure [place] [facility] Diastolic blood 2019-09-24 17:13:00 87 mm[Hg] Unive rsity of pressure [place] [facility] Heart rate 2019-09-24 16:32:00 103 /min [facility] [place] [facility] Body temperature 2019-09-24 16:32:00 36.83 [place] [facility] [place] [facility] Respiratory rate 2019-09-24 16:32:00 18 /min Univ ersity of [place] [facility] Body height 2019-09-24 16:32:00 172.7 cm [facility] [place] [facility] Body weight 2019-09-24 16:32:00 115.667 kg [facility] [place] [facility] BMI 2019-09-24 16:32:00 38.77 kg/m2 Universi ty of [facility] Branch Systolic blood 2019-09-24 17:13:00 124 mm[Hg] Univer sity of pressure [place] [facility] Diastolic blood 2019-09-24 17:13:00 87 mm[Hg] Unive rsity of pressure [place] [facility] Heart rate 2019-09-24 16:32:00 103 /min [facility]i [facility] [place] [facility] Body temperature 2019-09-24 16:32:00 36.83 [place] [facility] [place] [facility] Respiratory rate 2019-09-24 16:32:00 18 /min Univ ersity of [place] [facility] Body height 2019-09-24 16:32:00 172.7 cm [facility] [place] [facility] Body weight 2019-09-24 16:32:00 115.667 kg [facility] [place] [facility] BMI 2019-09-24 16:32:00 38.77 kg/m2 [facility] [place] [facility] Systolic blood 2019-09-16 19:12:00 129 mm[Hg] Univer sity of pressure [place] [facility] Diastolic blood 2019-09-16 19:12:00 85 mm[Hg] Unive rsity of pressure [place] [facility] Heart rate 2019-09-16 19:12:00 110 /min [facility] [place] [facility] Body temperature 2019-09-16 19:12:00 36.67 [place] [facility] [place] [facility] Respiratory rate 2019-09-16 19:12:00 18 /min Univ ersity [facility] [place] [facility] Body weight 2019-09-16 19:12:00 116.121 kg [facility] [place] [facility] BMI 2019-09-16 19:12:00 38.92 kg/m2 [facility] [place] [facility] Systolic blood 2019-09-16 19:12:00 129 mm[Hg] Univer sity of pressure [place] [facility] Diastolic blood 2019-09-16 19:12:00 85 mm[Hg] Unive rsity of pressure [place] [facility] Heart rate 2019-09-16 19:12:00 110 /min [facility] [place] [facility] Body temperature 2019-09-16 19:12:00 36.67 [place] [facility] [place] [facility] Respiratory rate 2019-09-16 19:12:00 18 /min Univ ersity of [place] [facility] Body weight 2019-09-16 19:12:00 116.121 kg [facility] [place] [facility] BMI 2019-09-16 19:12:00 38.92 kg/m2 [facility] [place] [facility] Systolic blood 2019-09-10 16:52:00 124 mm[Hg] Univer sity of pressure [place] [facility] Diastolic blood 2019-09-10 16:52:00 82 mm[Hg] Unive rsity of pressure [place] [facility] Heart rate 2019-09-10 16:52:00 111 /min [facility] [place] [facility] Body temperature 2019-09-10 16:52:00 36.78 [place] [facility] [place] [facility] Respiratory rate 2019-09-10 16:52:00 18 /min Univ ersity [facility] [place] [facility] Body height 2019-09-10 16:52:00 172.7 cm [facility] [place] [facility] Body weight 2019-09-10 16:52:00 115.667 kg [facility] [place] [facility] BMI 2019-09-10 16:52:00 38.77 kg/m2 [facility] [place] [facility] Systolic blood 2019-09-10 16:52:00 124 mm[Hg] Univer sity of pressure [place] [facility] Diastolic blood 2019-09-10 16:52:00 82 mm[Hg] Unive rsity of pressure [place] [facility] Heart rate 2019-09-10 16:52:00 111 /min [facility] [place] [facility] Body temperature 2019-09-10 16:52:00 36.78 [place] [facility] [place] [facility] Respiratory rate 2019-09-10 16:52:00 18 /min Univ ersity [facility] [place] [facility] Body height 2019-09-10 16:52:00 172.7 cm [facility] [place] [facility] Body weight 2019-09-10 16:52:00 115.667 kg [facility] [place] [facility] BMI 2019-09-10 16:52:00 38.77 kg/m2 [facility] [place] [facility] Systolic blood 2019-09-03 12:00:00 128 mm[Hg] Univer sity of pressure [place] [facility] Diastolic blood 2019-09-03 12:00:00 76 mm[Hg] Unive rsity of pressure [place] [facility] Heart rate 2019-09-03 12:00:00 121 /min [facility] [place] [facility] Body temperature 2019-09-03 12:00:00 36.72 [place] Univ ersity of [facility] Branch Respiratory rate 2019-09-03 12:00:00 18 /min Univ ersity of [facility] Branch Body height 2019-09-03 12:00:00 172.7 cm [facility] [place] [facility] Body weight 2019-09-03 12:00:00 117.028 kg [facility] [place] [facility] BMI 2019-09-03 12:00:00 39.23 kg/m2 [facility] [place] [facility] Oxygen saturation in 2019-09-03 12:00:00 100 /min University of Arterial blood by [facility] Pulse oximetry Branch Systolic blood 2019-09-03 12:00:00 128 mm[Hg] Univer sity of pressure [place] [facility] Diastolic blood 2019-09-03 12:00:00 76 mm[Hg] Unive rsity of pressure [place] [facility] Heart rate 2019-09-03 12:00:00 121 /min [facility]i [facility] [place] [facility] Body temperature 2019-09-03 12:00:00 36.72 [place] [facility] [place] [facility] Respiratory rate 2019-09-03 12:00:00 18 /min Univ ersity [facility] [place] [facility] Body height 2019-09-03 12:00:00 172.7 cm [facility] [place] [facility] Body weight 2019-09-03 12:00:00 117.028 kg [facility] [place] [facility] BMI 2019-09-03 12:00:00 39.23 kg/m2 [facility] [place] [facility] Oxygen saturation in 2019-09-03 12:00:00 100 /min [facility] of Arterial blood by [facility] Pulse oximetry Branch Heart rate 2019-09-02 13:30:00 109 /min [facility] [place] [facility] Oxygen saturation in 2019-09-02 12:15:00 100 /min [facility] of Arterial blood by [facility] Pulse oximetry Branch Systolic blood 2019-09-02 11:00:00 127 mm[Hg] Univer sity of pressure [place] [facility] Diastolic blood 2019-09-02 11:00:00 76 mm[Hg] Unive rsity of pressure [place] [facility] Body temperature 2019-09-02 09:55:00 37.17 [place] [facility] [place] [facility] Respiratory rate 2019-09-02 09:55:00 18 /min Univ ersity [facility] [place] [facility] Body height 2019-09-02 09:55:00 172.7 cm [facility] [place] [facility] Body weight 2019-09-02 09:55:00 117.482 kg [facility] [place] [facility] BMI 2019-09-02 09:55:00 39.38 kg/m2 [facility] [place] [facility] Heart rate 2019-09-02 13:30:00 109 /min [facility] [place] [facility] Oxygen saturation in 2019-09-02 12:15:00 100 /min [facility] Arterial blood by [facility] [facility] Pulse oximetry Branch Systolic blood 2019-09-02 11:00:00 127 mm[Hg] Univer sity of pressure [facility] Diastolic blood 2019-09-02 11:00:00 76 mm[Hg] Unive rsity of pressure [facility] Body temperature 2019-09-02 09:55:00 37.17 Melva [facility] Respiratory rate 2019-09-02 09:55:00 18 /min [facility] Body height 2019-09-02 09:55:00 172.7 cm [facility] Body weight 2019-09-02 09:55:00 117.482 kg [facility] BMI 2019-09-02 09:55:00 39.38 kg/m2 [facility] Systolic blood 2019-08-27 20:52:00 130 mm[Hg] Univer sity of pressure [facility] Diastolic blood 2019-08-27 20:52:00 84 mm[Hg] Unive rsity of pressure [facility] Heart rate 2019-08-27 20:52:00 99 /min [facility] Body temperature 2019-08-27 20:52:00 36.78 Melva [facility] Respiratory rate 2019-08-27 20:52:00 18 /min Univ [facility] Body height 2019-08-27 20:52:00 172.7 cm [facility] Body weight 2019-08-27 20:52:00 117.028 kg [facility] BMI 2019-08-27 20:52:00 39.23 kg/m2 Universi ty of [facility] Systolic blood 2019-08-27 20:52:00 130 mm[Hg] Univer sity of pressure [facility] Diastolic blood 2019-08-27 20:52:00 84 mm[Hg] Unive rsity of pressure [facility] Heart rate 2019-08-27 20:52:00 99 /min Universi ty of [facility] Body temperature 2019-08-27 20:52:00 36.78 Melva Univ ersity of [facility] Respiratory rate 2019-08-27 20:52:00 18 /min Univ ersity of [facility] Body height 2019-08-27 20:52:00 172.7 cm [facility] Body weight 2019-08-27 20:52:00 117.028 kg [facility] BMI 2019-08-27 20:52:00 39.23 kg/m2 [facility] Systolic blood 2019-08-05 18:54:00 128 mm[Hg] Univer [facility]ity of pressure [facility] Diastolic blood 2019-08-05 18:54:00 83 mm[Hg] Unive rsity of pressure [facility] Heart rate 2019-08-05 18:54:00 100 /min [facility] Body temperature 2019-08-05 18:54:00 36.89 Melva [facility] Respiratory rate 2019-08-05 18:54:00 18 /min Univ [facility] Body height 2019-08-05 18:54:00 172.7 cm [facility] Body weight 2019-08-05 18:54:00 116.574 kg [facility] BMI 2019-08-05 18:54:00 39.08 kg/m2 [facility] Systolic blood 2019-08-05 18:54:00 128 mm[Hg] Univer sity of pressure [facility] Diastolic blood 2019-08-05 18:54:00 83 mm[Hg] Unive rsity of pressure [facility] Heart rate 2019-08-05 18:54:00 100 /min [facility] Body temperature 2019-08-05 18:54:00 36.89 Melva [facility] Respiratory rate 2019-08-05 18:54:00 18 /min Univ [facility] Body height 2019-08-05 18:54:00 172.7 cm [facility] Body weight 2019-08-05 18:54:00 116.574 kg [facility] BMI 2019-08-05 18:54:00 39.08 kg/m2 [facility] Systolic blood 2019-07-08 16:06:00 136 mm[Hg] Univer [facility] Diastolic blood 2019-07-08 16:06:00 87 mm[Hg] Unive rsity [facility] Heart rate 2019-07-08 16:06:00 98 /min [facility] Body temperature 2019-07-08 16:06:00 36.78 Melva [facility] Respiratory rate 2019-07-08 16:06:00 18 /min Univ [facility] Body height 2019-07-08 16:06:00 172.7 cm [facility] Body weight 2019-07-08 16:06:00 114.306 kg [facility] BMI 2019-07-08 16:06:00 38.32 kg/m2 [facility] Heart rate 2019-06-10 15:44:00 99 /min [facility] Body temperature 2019-06-10 15:44:00 36.72 Melva [facility] Respiratory rate 2019-06-10 15:44:00 18 /min Univ [facility] Body weight 2019-06-10 15:44:00 115.214 kg [facility] Systolic blood 2019-06-10 15:44:00 135 mm[Hg] Univer sity of pressure [facility] Diastolic blood 2019-06-10 15:44:00 89 mm[Hg] Unive rsity of pressure [facility] Systolic blood 2019-05-13 17:48:00 137 mm[Hg] Univer sity of pressure [facility] Diastolic blood 2019-05-13 17:48:00 86 mm[Hg] Unive rsity of pressure [facility] Heart rate 2019-05-13 17:47:00 103 /min Universi ty of [facility] Body temperature 2019-05-13 17:47:00 36.61 Melva [facility] ersity of [facility] Respiratory rate 2019-05-13 17:47:00 18 /min [facility] Body height 2019-05-13 17:47:00 172.7 cm Universi ty [facility] Body weight 2019-05-13 17:47:00 115.667 kg Universi ty [facility] BMI 2019-05-13 17:47:00 38.77 kg/m2 Universi ty [facility] Systolic blood 2019-05-10 07:45:00 115 mm[Hg] Univer sity of pressure [facility] Diastolic blood 2019-05-10 07:45:00 60 mm[Hg] Unive rsity of pressure [facility] Heart rate 2019-05-10 07:45:00 102 /min Universi ty [facility] Respiratory rate 2019-05-10 07:45:00 17 /min [facility] Oxygen saturation in 2019-05-10 07:45:00 100 /min [facility] Arterial blood by [facility] Pulse oximetry Branch Body weight 2019-05-10 06:00:00 117.028 kg Universi ty [facility] Body temperature 2019-05-10 05:36:00 36.33 Melva [facility] Procedures Procedure Date / Time Performing Clinician Source Performed ASSIGNMENT OF BENEFITS 2022-02-21 21:38:54 Doctor Unassigned, No University [facility] Name [facility] BASIC METABOLIC PANEL 2019-10-01 08:41:00 Lynda Montesinos [facility] (NA, K, CL, CO2, Medical Branch GLUCOSE, BUN, CREATININE, CA) CBC WITH DIFFERENTIAL 2019-10-01 08:41:00 Lynda Montesinos [facility] BASIC METABOLIC PANEL 2019-09-30 19:22:00 Lynda Montesinos [facility] (NA, K, CL, CO2, Medical Branch GLUCOSE, BUN, CREATININE, CA) PROFILE / HEMOGRAM 2019-09-30 19:22:00 Adum, [facility] HEMOGLOBIN 2019-09-30 13:55:00 [facility] 2019-09-30 13:55:00 Adum, [facility] PREPARE PACKED RBC 2019-09-30 13:54:27 Doctor Unassigned, No Uni [facility] [place] Name [facility] HEMOGLOBIN 2019-09-30 11:53:00 Adum, [facility] HEMATOCRIT 2019-09-30 11:53:00 Adum, [facility] ACTIVATED PARTIAL 2019-09-30 11:53:00 Adum, Margaret Alba [facility] THRMPLAS GUALBERTO [facility] VENOUS CORD GAS 2019-09-30 10:13:00 [facility] CENTRAL NEURAXIAL BLOCK 2019-09-30 09:05:33 Laura Couch [facility] URINE CULTURE 2019-09-30 06:16:00 Adum, [facility] PROTEIN CREAT RATIO 2019-09-30 06:16:00 Adum, Margaret Alba [facility] URINE RANDOM Medical Branch COVID-19 (ID NOW RAPID 2019-09-30 06:16:00 Adum, Margaret Alba [facility] TESTING) Medical Branch URIC ACID 2019-09-30 04:21:00 Adum, Margaret Alba [facility] COMP. METABOLIC PANEL 2019-09-30 04:21:00 Adum, Margaret Alba [facility] ([id number]) Medical Branch CBC WITH DIFFERENTIAL 2019-09-30 04:21:00 Adum, Margaret [facility] HEPATITIS B SURFACE 2019-09-30 04:21:00 Adum, Margaret Alab [facility] ANTIBODY [facility] Branch ADC OR ROZINA ONLY - 2019-09-30 04:21:00 Adum, Margaret Alba [facility] RPR Medical Branch HIV 1/2 AG-AB WITH 2019-09-30 04:21:00 Adum, Margaret Alba [facility] REFLEX Medical Branch HB ABO GROUPING 2019-09-30 04:20:00 Adum, Margaret Alba [place] [facility] RHO (D) IMMUNE GLOBULIN 2019-09-30 04:20:00 Adum, Margaret Alba [facility] NOTICE OF PRIVACY 2019-09-30 02:03:09 Doctor Unassigned, No [facility] PRACTICES Name Medical Branch CONSENT/REFUSAL FOR 2019-09-30 02:02:52 Doctor Unassigned, No [facility] POCT URINALYSIS W/O 2019-09-24 00:00:00 Tori Posada [facility] SPECIFIC GRAVITY [facility] DSU PRE-OP 2019-09-16 05:01:00 Doctor Unassigned, No [facility] POCT URINALYSIS W/O 2019-09-16 00:00:00 Tori Posada [facility] SPECIFIC GRAVITY [facility] POCT URINALYSIS W/O 2019-09-10 00:00:00 Tori Posada [facility] SPECIFIC GRAVITY [facility] GLUCOSE 1 HOUR POST 2019-09-03 15:15:00 PosadaTori [facility] PRANDIAL [facility] COMP. METABOLIC PANEL 2019-09-03 15:15:00 Tori Posada [facility] ([id number]) Medical [place] CBC WITH DIFFERENTIAL 2019-09-03 15:15[facility]2 AG-AB WITH 2019-09-03 15:15:[address] [facility] REFLEX Medical Branch CONSENT/REFUSAL FOR 2019-09-03 11:37:10 Doctor Unassigned, No [facility]YSIS 2019-09-02 13:01:00 Albino [facility] POCT URINALYSIS W/O 2019-08-27 00:00:00 Tori Posada [facility] SPECIFIC GRAVITY [facility] TDAP (ADACEL) 2019-08-05 19:29:41 Tori Posada [facility] IMMUNIZATION [facility] POCT URINALYSIS W/O 2019-06-10 00:00:00 Tori Posada [facility] SPECIFIC GRAVITY [facility] EXTERNAL PROVIDER 2019-05-20 06:01:00 Doctor Unassigned, No [facility] RECORDS Name [facility] POCT URINALYSIS W/O 2019-05-13 00:00:00 Tori Posada [facility] SPECIFIC GRAVITY [facility] URINALYSIS 2019-05-10 07:50:00 Nessa Caballero [facility] HB ABO GROUPING 2019-05-10 06:34:00 Nessa Caballero Salmaximiliano [facility] AMYLASE 2019-05-10 06:31:00 Nessa Caballero [facility] LIPASE 2019-05-10 06:31:00 Nessa Caballero [facility] BASIC METABOLIC PANEL 2019-05-10 06:31:00 Nessa Caballero U [facility] (NA, K, CL, CO2, Medical Branch GLUCOSE, BUN, CREATININE, CA) CBC WITH DIFFERENTIAL 2019-05-10 06:31:00 Nessa Caballero U [facility] Encounters Start End Encounter Admission Attending Care Care Encounter Source Date/Time Date/Time Type Type Clinicians Facility Department ID 2021-02-15 Outpatient P [facility] OG [id number] Univers 21:00:41 [facility] 2021-02-15 Outpatient P [facility] OG [id number] Univers 20:57:00 [facility] 2022-02-21 2022-02-21 Outpatient R JOSIANE FLRICKY FLRICKY [id number] Univers 16:40:00 18:19:25 MITCHELL [facility] 2022-02-21 2022-02-21 Urgent Mitchell Joshua [facility] 1.2.840.1 [id number] Univers 16:40:00 17:00:00 Care Unknown, [id number] [id number] Jose F as MINDA?BLEA [phone] [address] MEDICAL OFFICE BUILDING 2022-02-21 2022-02-21 Orders Doctor INNA 1.2.840.114 [id number] Univers 00:00:00 00:00:00 Only Unassigned, LUBA [id number] ity of [place] [facility] [id number] Jose F as [phone] [facility] 00[address] [place] 2021-11-13 2021-11-13 Outpatient R ADUM, [facility] [id number] Univers 11:00:00 11:00:00 MARGARET ity [facility] 2019-10-29 2019-10-29 Outpatient R ADUM, [facility] [id number] Univers 16:30:00 16:30:00 MARGARET ity [facility] 2019-10-29 2019-10-29 Outpatient R ADUM, [facility] [id number] Univers 08:15:00 08:15:00 MARGARET ity [facility] 2019-10-15 2019-10-15 Nurse Nurse, [facility] 1.2.840.114 [id number] 15:15:58 15:38:58 Visit [facility] [place] [id number] [facility] [id number] Professio [phone] [address] 2019-10-15 2019-10-15 Nurse Nurse, [facility] 1.2.840.114 [id number] Univers 15:15:58 15:38:58 Visit Tori Posada Puja [id number] ity [facility] [id number] Jose Fa s Professio [phone] Ny dical nal [address] [place] [address] 2019-10-15 2019-10-15 Outpatient R [facility] [id number] Univers 15:00:00 15:00:00 ity of [facility] 2019-09-29 2019-10-02 Hospital Lynda Montesinos [facility] 1.2.840.114 [id number] Univers 21:01:00 13:42:00 Encounter Margaret Dove [id number] ity of [place] [id number] [facility] [id number] [address] 2019-09-29 2019-10-02 Hospital Lynda Montesinos [facility] 1.2.840.114 [id number] 21:01:00 13:42:00 Encounter Margaret Dove [place] [id number] [place] [id number] [place] [id number] [facility] 2019-10-01 2019-10-01 Outpatient R AVNI [facility] [id number] Univers 14:30:00 14:30:00 MARGARET ity of [facility] 2019-09-30 2019-09-30 Outpatient R [facility] [id number] Univers 13:45:00 13:45:00 ity [facility] 2019-09-30 2019-09-30 Anesthesia [facility] 1.2.840.114 [id number] Univers 03:30:00 07:15:00 Laura Luo [id number] i ty of [place] [id number] [facility] [phone] [address] 2019-09-30 2019-09-30 Anesthesia [facility] 1.2.840.114 [id number] 03:30:00 07:15:00 Laura Luo [id number] [place] [id number] [place] [id number] [facility] 2019-09-29 2019-09-29 Outpatient R [facility] [id number] Univers 15:00:00 15:00:00 ity of [facility] 2019-09-29 2019-09-29 Orders Doctor KEITH 1.2.840.114 [id number] Univers 00:00:00 00:00:00 Only Unassigned, LUBA [id number] ity of [place] [facility] [id number] Jose F [phone] [address] 2019-09-29 2019-09-29 Orders Doctor KEITH 1.2.840.114 [id number] 00:00:00 00:00:00 Only Unassigned, LUBA [id number] [place] [facility] [id number] [id number] [id number] 2019-09-28 2019-09-28 Telephone Posada, [facility] 1.2.[id number] [facility] 00:00:00 00:00:00 Tori [place] [id number] i ty [id number] [place] [phone] [address] 2019-09-28 2019-09-28 Telephone Posada, [facility] 1.2.840.114 [id number] 00:00:00 00:00:00 Tori [place] [id number] [place] [id number] Professio [phone] [address] 2019-09-24 2019-09-24 Routine Posada, [facility] 1.2.840.114 [id number] Univers 11:21:29 12:13:36 Tori [place] [id number] ity of Visit [id number] [place] [phone] [address] 2019-09-24 2019-09-24 Routine Posada, [facility] 1.2.840.114 [id number] 11:21:29 12:13:36 Tori [place] [id number] Visit [place] [id number] Professio [phone] [address] 2019-09-24 2019-09-24 Outpatient R POSADA, [facility] [id number] Univers 11:00:00 11:00:00 TORI ity [facility] 2019-09-24 2019-09-24 Outpatient R POSADA, [facility] [id number] Univers 08:15:00 08:15:00 TORI ity [facility] 2019-09-16 2019-09-16 Routine Posada, [facility] 1.2.840.114 [id number] Univers 13:51:19 14:42:13 Tori [place] [id number] ity of Visit [id number] [place] [phone] [address] 2019-09-16 2019-09-16 Routine Posada, [facility] 1.2.840.114 [id number] 13:51:19 14:42:13 Tori [place] [id number] Visit [place] 4.2.7.2.686 Professio [phone] [address] 2019-09-16 2019-09-16 Outpatient R POSADA, [facility] [id number] [facility] 13:45:00 13:45:00 TORI ity [facility] 2019-09-16 2019-09-16 Orders Doctor INNA 1.2.840.114 [id number] Univers 00:00:00 00:00:00 Only Unassigned, LUBA [id number] ity of [place] [facility] 4.2.7.2.686 Jose F as [phone] [address] 2019-09-16 2019-09-16 Orders Doctor INNA 1.2.840.114 [id number] 00:00:00 00:00:00 Only Unassigned, LUBA [id number] [place] [facility] [id number] [facility] 2019-09-10 2019-09-10 Routine Posada, [facility] 1.2.840.114 [id number] 11:36:25 12:16:55 Tori [place] [id number] Visit [place] 4.2.7.2.686 Professio [phone] [address] 2019-09-10 2019-09-10 Routine Posada, [facility] 1.2.840.[id number] [facility] 11:36:25 12:16:55 Tori [place] [id number] ity of Visit [id number] [phone] Ny dical [address] 2019-09-10 2019-09-10 Outpatient R POSADA, [facility] [id number] [facility] 11:30:00 11:30:00 TORI ity [facility] 2019-09-07 2019-09-07 Telephone Posada, [facility] 1.2.840.114 [id number] 00:00:00 00:00:00 Tori [place] [id number] [place] [id number] Professio [phone] [address] 2019-09-07 2019-09-07 Telephone Albino [facility] 1.2.840.114 [id number] Univers 00:00:00 00:00:00 Tori Luo [id number] i ty of [place].2.[place] [phone] Ny dical [address] 2019-09-03 2019-09-03 Investigator Narcotics Kvng, [facility] 1.2.840.114 [id number] 08:30:33 08:45:33 Visit Lab Main Puja [id number] [place] 4.2.7.2.686 Professio [phone] [address] 2019-09-03 2019-09-03 Investigator Narcotics Kvng, [facility] Lab Main [facility] 1.2.8 40.114 [id number] Univers 08:30:33 08:45:33 Visit Tori Posada [id number] ity of [place] 4[place]2.7.2.686 [place] [phone] [address] 2019-09-03 2019-09-03 [facility] 1.2.840.114 [id number] 06:53:00 08:30:00 Encounter Juan Luo [id number] [place] 4.2.7.2.686 [place] [id number] [facility] 2019-09-03 2019-09-03 [facility] 1.2.840.114 [id number] Univers 06:53:00 08:30:00 Encounter Juan Luo [id number] ity of [place] 4[place].7.2.686 [place] [phone] [address] 2019-09-03 2019-09-03 Outpatient P [facility] OG [id number] Univers 06:37:00 06:37:00 ity [facility] 2019-09-03 2019-09-03 Orders Doctor KEITH 1.2.840.114 [id number] 00:00:00 00:00:00 Only Unassigned, LUBA 350.1.13.10 [place] [facility] 4.2.7.2.686 [id number] [id number] 2019-09-03 2019-09-03 Orders Doctor INNA 1.2.840.114 [id number] Univers 00:00:00 00:00:00 Only Unassigned, LUBA [id number] ity of [place] [facility] 4.2.7.2.686 Jose F as [phone] [address] 2019-09-02 2019-09-02 [facility] 1.2.840.114 [id number] 04:37:00 11:05:00 Encounter Margaret Alba [place] [id number] [place] 4.2.7.2.686 [place] [id number] [facility] 2019-09-02 2019-09-02 [facility] 1.2.840.114 [id number] Univers 04:37:00 11:05:00 Encounter Margaret Alba [place] [id number] ity of [place] 4.2.7.2.686 [place] [phone] [address] 2019-09-01 2019-09-01 Outpatient R [facility] [id number] Univers 10:45:00 10:45:00 ity of [facility] 2019-08-27 2019-08-27 Routine [facility] 1.2.840.114 [id number] 15:39:56 16:31:09 Tori [place] [id number] Visit [place] 4.2.7.2.686 Professio [phone] [address] 2019-08-27 2019-08-27 Routine [facility] 1.2.840.114 [id number] Univers 15:39:56 16:31:09 Tori [place] 350.1.13.10 ity of Visit [place] 4.2.7.2.[place] [phone] Me dical [address] 2019-08-27 2019-08-27 Outpatient R POSADA, [facility] [id number] Univers 15:30:00 15:30:00 TORI ity [facility] 2019-08-26 2019-08-26 [facility] [id number] Univers 09:30:00 09:30:00 TORI baires [facility] 2019-08-12 2019-08-12 [facility] 1.2.840.114 [id number] 00:00:00 00:00:00 Tori [place] [id number] [place] 4.2.7.2.686 Professio [phone] [address] 2019-08-12 2019-08-12 [facility] 1.2.840.114 [id number] Univers 00:00:00 00:00:00 Tori [place] 350.1.13.10 i ty of [place] 4[place]2.7.2.[place] [phone] Ny dic[address] 2019-08-11 2019-08-11 [facility] 1.2.840.114 [id number] 00:00:00 00:00:00 Tori [place] 350.1.13.10 [place] 4.2.7.2.686 Professio [phone] [address] 2019-08-11 2019-08-11 [facility] 1.2.[id number] [facility] 00:00:00 00:00:00 Tori [place] [id number] i ty of [place] 4.2.7.2.[place] [phone] [address] 2019-08-09 2019-08-09 Outpatient R [facility] [id number] Univers 09:00:00 09:00:00 ity [facility] 2019-08-06 2019-08-06 Outpatient R [facility] [id number] Univers 09:45:00 09:45:[facility] 2019-08-05 2019-08-05 Routine Posada, [facility] 1.2.840.114 [id number] 08:19:46 14:31:06 Tori [place] 350.1.13.10 Visit [place] 4.2.7.2.686 Professio [phone] [address] 2019-08-05 2019-08-05 Routine [facility] 1.2.840.114 [id number] Univers 08:19:46 14:31:06 Tori [place] 350.1.13.10 ity of Visit [place] 4.2.7.2.[place] [phone] [address] 2019-08-05 2019-08-05 Outpatient R [facility] [id number] [facility] 08:30:00 08:30:00 TORI ity [facility] 2019-07-11 2019-07-11 Telephone [facility] 1.2.840.114 [id number] Univers 00:00:00 00:00:00 Tori [place] 350.1.13.10 i ty of [place] 4.2.7.2.686 [place] [phone] [address] 2019-07-08 2019-07-08 Routine [facility] 1.2.840.114 [id number] Univers 09:33:18 10:41:31 Tori [place] 350.1.13.10 ity of Visit [place] 4.2.7.2.686 [place] [phone] [address] 2019-07-08 2019-07-08 Outpatient R [facility] [id number] Univers 09:30:00 09:30:00 TORI ity [facility] 2019-06-29 2019-06-29 Telephone [facility] 1.2.840.114 [id number] Univers 00:00:00 00:00:00 Tori [place] 350.1.13.10 i ty of [place] 4.2.7.2.[place] [phone] [address] 2019-06-25 2019-06-25 Investigator Narcotics Ultrasound, [facility] 1.2 .840.114 [id number] Univers 14:52:21 15:23:32 Visit Guerita Dugan 350.1.13.10 [place] [phone] dic[address] 2019-06-25 2019-06-25 Outpatient Sameera [facility]AN [facility] [id number] Univers 14:45:00 14:45:00 GUERITA ity of [facility] 2019-06-10 2019-06-10 Routine [facility] 1.2.840.114 [id number] Univers 08:53:47 21:10:01 Tori Puja 350.1.13.10 [place] [phone] [address] 2019-06-10 2019-06-10 Letter [facility] 1.2.840.114 [id number] Univers 00:00:00 00:00:00 (Out) Tori Luo 350.1.13.10 [place] [phone] [address] 2019-05-20 2019-05-20 Orders Doctor INNA 1.2.840.114 [id number] Univers 00:00:00 00:00:00 Only Unassigned, LUBA 350.1.13.10 ity of [place] [facility] 4.2.7.2.686 Jose F as [phone] [address] 2019-05-13 2019-05-13 Routine [facility] 1.2.840.114 [id number] Univers 11:11:24 12:06:52 Tori Puja 350.1.13.10 [place] [phone] [place] dic[address] 2019-05-13 2019-05-13 Letter [facility] 1.2.840.114 [id number] Univers 00:00:00 00:00:00 (Out) Tori Puja 350.1.13.10 [place] [phone] [address] 2019-05-09 2019-05-10 [facility] INNA Peralta 1.2.840.114 [id number] Univers 23:25:00 02:43:00 Encounter Milagros VERDUZCO 350.1.13.10 ity of [facility] 4[place].2.[place] [phone] [address] 2019-05-09 2019-05-09 Telephone [place], [facility] 1.2.840.114 [id number] Univers 00:00:00 00:00:00 Tori Luo 350.1.13.10 i ty [facility] [place] [phone] [place] dical nal 134 [facility] Results Test Description Test Time Test Comments [...] L [Au tomated message] The system which ge nerated this [...] 33.1 g/dL 32-36 RDW-SD (test code = 46666-2) 44.3 fL 38.5-49 RDW-CV (test code = 788-0) 13.4 % 11.5-14 PLT (test code = 777-3) See_Comment [Au tomated message] The system which ge nerated this result transmit hanny reference range: 135 - 36 1 10*3/?L. The reference range was not used to interpret th is result as normal/abnormal . MPV (test code = 19563-7) 9.7 fL 9.4-13.3 NRBC/100 WBC (test code = See_Comment [ Automated message] The 3571509722) system which ge nerated this result transmit hanny reference range: 0.0 - 10 .0 /100 WBCs. The reference r niall was not used to interpr et this result as normal/abnor mal. NRBC x10^3 (test code = <0.01 See_Comment [Au tomated message] The 2246512653) system which ge nerated this result transmit hanny reference range: 10*3/?L. The reference range was not u sed to interpret this result as normal/abnormal . SEG % (test code = 85044-9) 60 % 33-76 BAND % (test code = 31515-3) 30 % 0-1 H META % (test code = 36468-2) 1 % See_Comment H [Automated message] The system which ge nerated this result transmit hanny reference range: <=0. The reference range was not u sed to interpret this result as normal/abnormal . MYELO % (test code = 1 % See_Comment H [Autom ated message] The 24022-1) system which ge nerated this result transmit hanny reference range: <=0. The reference range was not u sed to interpret this result as normal/abnormal . LYMPH % (test code = 4 % 15-55 L 10071-0) MONO % (test code = 03725-1) 3 % 0-4 EOS % (test code = 00364-1) 1 % 0-3 ANC (test code = 9276828308) 41.58 10*3/uL 1.5-10.3 H Lab Interpretation (test Abnormal code = 61080-2) [facility] METABOLIC PANEL (NA, K, CL, CO2, GLUCOSE, BUN, CREATININE, CA)2019-10-01 11:12:00 Test Item Value Reference Range Interpretation Comments NA (test code = 136 mmol/L 135-145 9549978690) K (test code = 5.5 mmol/L 3.5-5 H 3480887791) CL (test code = 109 mmol/L 98-108 H 6809833022) CO2 TOTAL (test code = 25 mmol/L 23-31 4695611411) AGAP (test code = 2-16 1332553853) BUN (test code = 12 mg/dL 7-23 1683838396) GLUCOSE (test code = 108 mg/dL 70-110 8976296070) CREATININE (test code = 0.68 mg/dL 0.5-1.04 6426550602) CALCIUM (test code = 8.7 mg/dL 8.6-10.6 8011512146) ANIA (test code = ANIA) Association of [...] tests). Lab Interpretation Abnormal (test code = 55226-4) [facility] ARIAS SANTOS - [id number] 06:58:00 Test Item Value Reference Range Interpretation Comments RPR (Qualitative) (test code = Nonreactive Nonreactive 11060-1) Lab Interpretation (test code = Normal 69211-1) [facility] [id number] 20:14:00 Test Item Value Reference Range Interpretation Comments WBC (test code = 6690-2) See_Comment H [A utomated message] The system [employer] generated this result transmit hanny reference range : 4.50 - 13.50 10*3/?L. The reference range was not used to interpret this result as normal/abnormal . RBC (test code = 789-8) See_Comment L [Au tomated message] The system [employer] generated this result transmit hanny reference range [...] 777-3) See_Comment [Au tomated message] The system [employer] generated this result transmit hanny reference range : 135 - 361 10*3/?L. The reference range was not used to interpret this result as normal/abnormal . MPV (test code = 9.5 fL 9.4-13.3 15708-4) RDW-CV (test code = 13.2 % 11.5-14 788-0) RDW-SD (test code = 42.9 fL 38.5-49 66338-4) NRBC x10^3 (test code = <0.01 See_Comment [Au tomated message] 8096436978) The system [employer] generated this result transmit hanny reference range : 10*3/?L. The reference range was not used to interpret this result as normal/abnormal . NRBC/100 WBC (test code See_Comment [Au tomated message] = 9375023946) The system [facility] generated this result transmit hanny reference range : 0.0 - 10.0 /100 WBC s. The reference r niall was not used to interpret this result as normal/abnormal . IPF % (test code = 3095253621) Lab Interpretation (test Abnormal code = 78349-4) [facility] METABOLIC PANEL (NA, K, CL, CO2, GLUCOSE, BUN, CREATININE, CA)2019-09-30 20:09:00 Test Item Value Reference Range Interpretation Comments NA (test code = 130 mmol/L 135-145 L 5634478126) K (test code = 3.9 mmol/L 3.5-5 2942806528) CL (test code = 106 mmol/L 98-108 4499692813) CO2 TOTAL (test code = 18 mmol/L 23-31 L 9954440897) AGAP (test code = 2-16 1900674093) BUN (test code = 16 mg/dL 7-23 6165840740) GLUCOSE (test code = 100 mg/dL 70-110 6844035824) CREATININE (test code = 0.96 mg/dL 0.5-1.04 0712263246) CALCIUM (test code = 8.1 mg/dL 8.6-10.6 L 1278913749) ANIA (test code = ANIA) Association of [...] tests). Lab Interpretation Abnormal (test code = 71681-5) [facility]2020-[facility] 14:05:00 Test Item Value Reference Range Interpretation Comments HGB (test code = 718-7) 9.4 g/dL 12-16 L Lab Interpretation (test code = Abnormal 49538-2) [facility]MATOCRIT2020-06-11 14:05:00 Test Item Value Reference Range Interpretation Comments HCT (test code = 4544-3) 28.9 % 36-45 L Lab Interpretation (test code = Abnormal 18086-5) [facility]viewPrepar Packed RBC (in units)2019-09-30 13:54:27 Test Item Value Reference Range Interpretation Comments Unit Blood Type (test O Pos code = 4410) ISBT Blood Type Code (test code = 092500) Unit Number (test code [id number] = 4411) Blood Expiration Date & Time (test code = 638179) Status Information Issued (test code = 4412) Product Identification Red Blood (test code = 4413) Cells Product Code (test L7906E62 Performed at [facility] code = 4414) Laboratory Services - [facility] [address] [place] [address] Free: [phone] A No. [id number] [facility]viewRHO (D) IMMUNE [id number] 12:52:34 Test Item Value Reference Range Interpretation Comments RHIG CANDIDATE? No- see comment Patient i s not a (test code = candidate for R [facility]- 5055) Patient is Rh Positive.Perfor med at [facility] Laboratory Services - [facility] Blood [address] [place] [address] Free: [phone] A No. [id number] [facility]viewHEPATITIS B SURFACE [id number] 12:24:00 Test Item Value Reference Range Interpretation Comments HBsAB (test code = Negative 8008199277) HBsAb mIU/mL Semi-Quantitative (test code = 2959354393) ANIA (test code = Interpretation: ANIA) ?Hepatitis B Surface Antibody ? Negative - Patient is considered to be not immune to infection with HBV. ? ? Positive - Anti-HBs detected at greater than or equal to 12 mIU/mL. ?Patient is considered to be immune to infection with HBV. ? [facility]viewaPTT2020-06-11 12:16:00 Test Item Value Reference Range Interpretation Comments APTT Patient (test See_Comment H [Automat ed code = 3173-2) message] The system which generated this result transmitted reference range : 23 - 38 Seconds . The reference range was not used to interpr et this result as normal/abnormal . ANIA (test code = ANIA) The [facility] patient population mean normal value for aPTT is 30 seconds. Lab Interpretation Abnormal (test code = 96792-4) [facility]2020-06-11 12:11:00 Test Item Value Reference Range Interpretation Comments HCT (test code = 4544-3) 34.7 % 36-45 L Lab Interpretation (test code = Abnormal 50003-5) [facility]MOGLOBIN2020-06-11 12:11:00 Test Item Value Reference Range Interpretation Comments HGB (test code = 718-7) 11.4 g/dL 12-16 L Lab Interpretation (test code = Abnormal 97005-7) [facility]viewVen[facility] Cord [id number] 10:22:00 Test Item Value Reference Range Interpretation Comments VENOUS BASE EXCESS, CORD mEq/L (test code = 5060420344) VENOUS PH, CORD (test 7.25-7.45 L code = 2672763860) VENOUS PC02, CORD (test See_Comment H [Au tomated message] code = 2293062223) The syste m which generated this result transmitted ref erence range: 27 - 49 mmHg. The reference r niall was not used to interpret this result as normal/abnor mal. VENOUS PO2, CORD (test See_Comment L [Aut omated message] code = 5367436913) The syste m which generated this result transmitted ref erence range: 17 - 41 mmHg. The reference r niall was not used to interpret this result as normal/abnor mal. VENOUS BICARBONATE, CORD See_Comment [A utomated message] (test code = 0976703291) The system which generated this result transmitted ref erence range: 12 - 29 mEq/L. The reference r niall was not used to interpret this result as normal/abnor mal. Lab Interpretation (test Abnormal code = 81944-3) [facility]view[facility] Neuraxial [id number] 09:05:33 Laura Couch MD ? ? 09/30/2019 ?4:07 AM Central Neuraxial Block Performed by: Laura Couch MDAuthorized by: Laura Couch MD Start Time: ?09/30/2019 [...] airNeedle and Epidural Catheter: ?Epidural Kit: ?Ana Truxton (BD) ?Needle Type: ?Tuohy ?Needle Length: ?3.5 in (8.89 cm) ?Needle Insertion Depth: ?6Catheter Type: ?MultiportCatheter Size: ?19 GCatheter at Skin Depth: ?11Test Dose: ?No test dose and lidocaine 1.5% with epinephrine 1-to-200,000Assessment: ?Sensory Level: ?Below T10 [facility]viewPROTEIN CREAT RATIO URINE [id number] 06:58:00 Test Item Value Reference Range Interpretation Comments T. PROT U (test code = 2888-6) 99 mg/dL CREAT U (test code = 9593795903) 114.7 mg/dL Protein/Creatinine Ratio Urine 0.0-2.0 (test code = 7617115431) [facility]viewCOVID-[facility] (ID NOW RAPID TESTING)2019-09-30 06:57:00 Test Item Value Reference Range Interpretation Comments SARS-CoV-2 Rapid ID NOW Not Detected Not Detected (test code = 58723-2) ANIA (test code = ANIA) ID NOW COVID-19 Assay is an isothermal nucleic acid amplification test intended for the qualitative detection of nucleic acid from SARS-CoV-2 viral RNA in nasopharyngeal (TUNNELLER) specimens. It is used under Emergency Use [...] indicated. Lab Interpretation Normal (test code = 68207-3) [facility]viewHIV 1/2 AG-AB WITH [id number] 05:52:00 Test Item Value Reference Range Interpretation Comments HIV Negative Negative Semi-quantitative (test code = 62054-3) ANIA (test code = Non-reactive for HIV-1 ANIA) antigen and HIV-1/HIV-2 antibodies. ?No laboratory evidence of HIV infection. ?Repeat in 2-4 weeks if acute HIV infection is suspected. [facility]viewCB WITH [id number] 05:48:00 Test Item Value Reference Range Interpretation Comments WBC (test code = See_Comment H [Automated 3090-2) message] The system which generated this result [...] RDW-SD (test code = 40.7 fL 38.5-49 95546-6) RDW-CV (test code = 12.6 % 11.5-14 788-0) PLT (test code = See_Comment H [Automated 777-3) message] The system which generated this result transmit hanny reference range : 135 - 361 10*3/ ?L. The reference range was not u sed to interpret th is result as normal/abnormal . MPV (test code = 9.5 fL 9.4-13.3 15618-0) NRBC/100 WBC (test See_Comment [Automat ed code = 6212975696) message] The system which generated this result transmit hanny reference range : 0.0 - 10.0 /100 WBCs. The reference range was not used to interpret this result as normal/abnormal . NRBC x10^3 (test code <0.01 See_Comment [Auto mated = 3980861422) message] The system which generated this result transmit hanny reference range : 10*3/?L. The reference range was not used to interpret this result as normal/abnormal . GRAN MAT (NEUT) % 88.9 % (test code = 770-8) IMM GRAN % (test code 1.30 % = 2238077726) LYMPH % (test code = 5.7 % 736-9) MONO % (test code = 3.8 % 5905-5) EOS % (test code = 0.2 % 713-8) BASO % (test code = 0.1 % 706-2) GRAN MAT x10^3(ANC) 22.58 10*3/uL 1.5-10.3 H (test code = 0581296894) IMM GRAN x10^3 (test 0.32 10*3/uL 0-0.06 H code = 0584193920) LYMPH x10^3 (test code 1.45 10*3/uL 0.7-7.4 = 731-0) MONO x10^3 (test code 0.96 10*3/uL 0-0.5 H = 742-7) EOS x10^3 (test code = 0.04 10*3/uL 0-0.4 711-2) BASO x10^3 (test code 0.03 10*3/uL 0-0.1 = 704-7) Lab Interpretation Abnormal (test code = 60122-7) [facility]viewType and Screen - ONCE [id number] 05:38:07 Test Item Value Reference Range Interpretation Comments ABO & RH (test code O Positive Performe d at [facility] = 20) Laboratory Serv [facility] Blood Bank1 [address] [place], [place] [address]Toll Free: [phone] A No. [id number] IAT (test code = Negative Performed a t [facility] 1185) Laboratory Serv [facility] Blood [facility] [address] [place], [place] [address]Toll Free: [phone] A No. [id number] [facility]viewCOMP. METABOLIC PANEL (27221)2019-09-30 05:12:00 Test Item Value Reference Range Interpretation Comments NA (test code = 135 mmol/L 135-145 4893154328) K (test code = 5.4 mmol/L 3.5-5 H 8447218613) CL (test code = 106 mmol/L 98-108 6581716103) CO2 TOTAL (test code = 18 mmol/L 23-31 L 4504238269) AGAP (test code = 2-16 5730565718) BUN (test code = 13 mg/dL 7-23 7628059035) GLUCOSE (test code = 85 mg/dL 70-110 0876783426) CREATININE (test code = 0.61 mg/dL 0.5-1.04 9804034782) TOTAL BILI (test code = 0.4 mg/dL 0.1-1.2 1813957179) CALCIUM (test code = 10.3 mg/dL 8.6-10.6 1088390122) T PROTEIN (test code = 7.7 g/dL 6.3-8.2 5401907832) ALBUMIN (test code = 4.0 g/dL 3.5-5 1745851144) ALK PHOS (test code = 263 U/L 34-122 H 6338361019) ALTv (test code = 22 U/L 5-35 2-6) AST(SGOT) (test code = 29 U/L 13-40 8260594086) ANIA (test code = ANIA) Association of [...] tests). Lab Interpretation Abnormal (test code = 04271-2) [facility] BranchURIC [id number] 05:12:00 Test Item Value Reference Range Interpretation Comments URIC ACID (test code = 2891097684) 8.0 mg/dL 2.9-6 H Lab Interpretation (test code = Abnormal 01334-8) [facility] URINALYSIS W/O SPECIFIC [id number] 16:58:00 Test Item Value Reference Range Interpretation [...] Negative Lab Interpretation (test code = Normal 51415-8) [facility] URINALYSIS W/O SPECIFIC [id number] 19:13:00 Test Item Value Reference Range Interpretation [...] Negative Lab Interpretation (test code = Normal 13349-2) [facility] URINALYSIS W/O SPECIFIC [id number] 16:53:00 Test Item Value Reference Range Interpretation [...] Negative Lab Interpretation (test code = Normal 74919-3) [facility]/2 AG-AB WITH [id number] 16:44:00 Test Item Value Reference Range Interpretation Comments HIV Negative Negative Semi-quantitative (test code = 54620-6) ANIA (test code = Non-reactive for HIV-1 ANIA) antigen and HIV-1/HIV-2 antibodies. ?No laboratory evidence of HIV infection. ?Repeat in 2-4 weeks if acute HIV infection is suspected. [facility]. METABOLIC PANEL (38503)2019-09-03 16:07:00 Test Item Value Reference Range Interpretation Comments NA (test code = 136 mmol/L 135-145 6249355399) K (test code = 4.4 mmol/L 3.5-5 7809045455) CL (test code = 105 mmol/L 98-108 0821222341) CO2 TOTAL (test code = 21 mmol/L 23-31 L 5582212965) AGAP (test code = 2-16 5940625869) BUN (test code = 4 mg/dL 7-23 L 8557719065) GLUCOSE (test code = 111 mg/dL 70-110 H 8533384768) CREATININE (test code = 0.48 mg/dL 0.5-1.04 L 5981809340) TOTAL BILI (test code = 0.3 mg/dL 0.1-1.4 8307873449) CALCIUM (test code = 9.6 mg/dL 8.6-10.6 1582990120) T PROTEIN (test code = 7.0 g/dL 6.3-8.2 5686420399) ALBUMIN (test code = 3.7 g/dL 3.5-5 8542576225) ALK PHOS (test code = 176 U/L 34-122 H 8339256019) ALTv (test code = 18 U/L 5-35 1742-6) AST(SGOT) (test code = 26 U/L 13-40 8009867576) ANIA (test code = ANIA) Association of [...] tests). Lab Interpretation Abnormal (test code = 14372-7) [facility]viewGLUCO[facility] 1 HOUR POST [id number] 16:06:00 Test Item Value Reference Range Interpretation Comments GLUC 1 HR (test code = 6910407753) 113 mg/dL 120-170 L Lab Interpretation (test code = Abnormal 54070-6) [facility] WITH [id number] 15:17:00 Test Item Value Reference Range Interpretation Comments WBC (test code = See_Comment H [Automated 5835-2) message] The system which generated this result transmit hanny reference range : 4.50 - 13.50 10*3/?L. The reference range was not used to interpret this result as normal/abnormal . RBC (test code = See_Comment [Automated 865-7) message] The system which generated this result transmit hanny reference range : 4.10 - 5.10 10*6/?L. The reference range was not used to interpret this result as normal/abnormal . HGB (test code = 12.4 g/dL 12-16 688-7) HCT (test code = 37.0 % 36-45 4544-3) MCV (test code = 88.7 fL 78-95 787-2) MCH (test code = 29.7 pg 26-32 785-6) MCHC (test code = 33.5 g/dL 32-36 786-4) RDW-SD (test code = 41.2 fL 38.5-49 66480-2) RDW-CV (test code = 12.7 % 11.5-14 788-0) PLT (test code = See_Comment H [Automated 777-3) message] The system which generated this result transmit hanny reference range : 135 - 361 10*3/ ?L. The reference range was not u sed to interpret th is result as normal/abnormal . MPV (test code = 9.4 fL 9.4-13.3 02396-2) NRBC/100 WBC (test See_Comment [Automat ed code = 9672665849) message] The system which generated this result transmit hanny reference range : 0.0 - 10.0 /100 WBCs. The reference range was not used to interpret this result as normal/abnormal . NRBC x10^3 (test code <0.01 See_Comment [Auto mated = 2396907981) message] The system which generated this result transmit hanny reference range : 10*3/?L. The reference range was not used to interpret this result as normal/abnormal . GRAN MAT (NEUT) % 85.1 % (test code = 770-8) IMM GRAN % (test code 0.40 % = 9289714221) LYMPH % (test code = 8.0 % 736-9) MONO % (test code = 6.1 % 5905-5) EOS % (test code = 0.3 % 713-8) BASO % (test code = 0.1 % 706-2) GRAN MAT x10^3(ANC) 11.51 10*3/uL 1.5-10.3 H (test code = 5836973870) IMM GRAN x10^3 (test 0.06 10*3/uL 0-0.06 code = 0767398594) LYMPH x10^3 (test code 1.08 10*3/uL 0.7-7.4 = 731-0) MONO x10^3 (test code 0.83 10*3/uL 0-0.5 H = 742-7) EOS x10^3 (test code = 0.04 10*3/uL 0-0.4 711-2) BASO x10^3 (test code <0.03 0-0.1 = 704-7) Lab Interpretation Abnormal (test code = 35296-3) [facility]2020-[facility]14 13:31:00 Test Item Value Reference Range Interpretation Comments APPEARANCE (test code = Hazy Clear A 0815203952) COLOR (test code = Yellow Yellow 0138312208) PH (test code = 4.8-8.0 9760734036) SP GRAVITY (test code = 1.003-1.030 7022306880) GLU U QUAL (test code = Normal Normal 8243900955) BLOOD (test code = 1+ Negative A 2047898031) KETONES (test code = Negative Negative 9556414753) PROTEIN (test code = Negative Negative 2887-8) UROBILIN (test code = Normal Normal 6043067001) BILIRUBIN (test code = Negative Negative 1979433197) NITRITE (test code = Negative Negative 3129031557) LEUK MYRNA (test code = 25/uL Negative A 1662287139) RBC/HPF (test code = See_Comment [Autom ated message] 9201841968) The system [employer] generated this result transmitted ref erence range: 0 - 3 HP F. The reference range was not used to int erpret this result as normal/abnormal . WBC/HPF (test code = See_Comment [Autom ated message] 8192419429) The system [employer] generated this result transmitted ref erence range: 0 - 5 HP F. The reference range was not used to int erpret this result as normal/abnormal . BACTERIA (test code = Few Negative A 1098980550) MUCOUS (test code = Slight Negative LPF A 3387782722) SQ EPITH (test code = HPF 7936712916) Lab Interpretation (test Abnormal code = 43873-4) [facility] W/O SPECIFIC [id number] 09:00:00 Test Item Value Reference Range Interpretation [...] Negative Lab Interpretation (test code = Normal 07154-0) [facility] URINALYSIS W/O SPECIFIC [id number] 18:20:00 Test Item Value Reference Range Interpretation [...] Negative Lab Interpretation (test code = Normal 46028-5) [facility] URINALYSIS W/O SPECIFIC [id number] 18:20:00 Test Item Value Reference Range Interpretation [...] Negative Lab Interpretation (test code = Normal 35225-8) [facility] URINALYSIS W/O SPECIFIC [id number] 18:20:00 Test Item Value Reference Range Interpretation [...] Negative Lab Interpretation (test code = Normal 48211-5) [facility] URINALYSIS W/O SPECIFIC [id number] 18:20:00 Test Item Value Reference Range Interpretation [...] Negative Lab Interpretation (test code = Normal 81253-0) [facility] URINALYSIS W/O SPECIFIC [id number] 17:56:00 Test Item Value Reference Range Interpretation [...] Negative Lab Interpretation (test code = Normal 81636-6) [facility]2020-01-20 08:08:00 Test Item Value Reference Range Interpretation Comments APPEARANCE (test code = Hazy Clear A 7388302683) COLOR (test code = Yellow Yellow 3659744434) PH (test code = 4.8-8.0 3483175099) SP GRAVITY (test code = 1.003-1.030 9454647659) GLU U QUAL (test code = Normal Normal 7124377283) BLOOD (test code = 2+ Negative A 9956549682) KETONES (test code = 20 mg/dL Negative A 9293032741) PROTEIN (test code = 30 mg/dL Negative A 2887-8) UROBILIN (test code = Normal Normal 8939951541) BILIRUBIN (test code = Negative Negative 0225744826) NITRITE (test code = Positive Negative A 4736053902) LEUK MYRNA (test code = 250/uL Negative A 5627549913) RBC/HPF (test code = See_Comment H [Autom ated message] 8571410329) The system [employer] generated this result transmitted ref erence range: 0 - 3 HP F. The reference range was not used to int erpret this result as normal/abnormal . WBC/HPF (test code = >182 See_Comment H [Autom ated message] 7531643117) The system [employer] generated this result transmitted ref erence range: 0 - 5 HP F. The reference range was not used to int erpret this result as normal/abnormal . BACTERIA (test code = Few Negative A 1926017821) MUCOUS (test code = Slight Negative LPF A 3908768993) SQ EPITH (test code = See_Comment [Auto mated message] 1144114381) The system [employer] generated this result transmitted ref erence range: <=2 HPF. The reference range was not used to int erpret this result as normal/abnormal . Lab Interpretation (test Abnormal code = 41647-6) [facility] - ONCE [id number] 07:32:17 Test Item Value Reference Range Interpretation Comments ABO & RH (test code O POSITIVE Performe d at [facility] = 20) Laboratory Serv [facility]3 [facility] s [id number] Free: [phone] A No. [id number] IAT (test code = Negative Performed a t [facility] 1185) Laboratory Serv [facility]3 [facility] s [id number] Free: [phone] A No. [id number] [facility]NA, K, CL, CO2, GLUCOSE, BUN, CREATININE, CA)2019-05-10 07:32:00 Test Item Value Reference Range Interpretation Comments NA (test code = 135 mmol/L 135-145 9938099095) K (test code = 3.7 mmol/L 3.5-5 2644914363) CL (test code = 104 mmol/L 98-108 2253464833) CO2 TOTAL (test code = 20 mmol/L 23-31 L 4262083363) AGAP (test code = 2-16 2119234812) BUN (test code = 3 mg/dL 7-23 L 7615801900) GLUCOSE (test code = 98 mg/dL 70-110 9104959427) CREATININE (test code = 0.41 mg/dL 0.5-1.04 L 7889814660) CALCIUM (test code = 8.9 mg/dL 8.6-10.6 5767600715) ANIA (test code = ANIA) Association of [...] tests). Lab Interpretation Abnormal (test code = 66988-4) [facility] 07:32:00 Test Item Value Reference Range Interpretation Comments ANA (test code = 8213551920) 31 U/L 35-110 L Lab Interpretation (test code = Abnormal 47032-0) [facility] 07:32:00 Test Item Value Reference Range Interpretation Comments LIPASE (test code = 3873941818) 30 U/L 0-220 Lab Interpretation (test code = Normal 21323-8) [facility] WITH [id number] 07:26:00 Test Item Value Reference Range Interpretation Comments WBC (test code = See_Comment H [Automated 6690-2) message] The system which generated this result transmit hanny reference range : 4.50 - 13.50 10*3/?L. The reference range was not used to interpret this result as normal/abnormal . RBC (test code = See_Comment L [Automated 789-8) message] The system which generated [...] RDW-SD (test code = 41.2 fL 38.5-49 52728-7) RDW-CV (test code = 12.4 % 11.5-14 788-0) PLT (test code = See_Comment [Automated 777-3) message] The system which generated this result transmit hanny reference range : 135 - 361 10*3/ ?L. The reference range was not u sed to interpret th is result as normal/abnormal . MPV (test code = 9.2 fL 9.4-13.3 L 92167-3) NRBC/100 WBC (test See_Comment [Automat ed code = 4714907826) message] The system which generated this result transmit hanny reference range : 0.0 - 10.0 /100 WBCs. The reference range was not used to interpret this result as normal/abnormal . NRBC x10^3 (test code <0.01 See_Comment [Auto mated = 4936006570) message] The system which generated this result transmit hanny reference range : 10*3/?L. The reference range was not used to interpret this result as normal/abnormal . GRAN MAT (NEUT) % 79.1 % (test code = 770-8) IMM GRAN % (test code 0.70 % = 9451136303) LYMPH % (test code = 9.1 % 736-9) MONO % (test code = 10.6 % 5905-5) EOS % (test code = 0.3 % 713-8) BASO % (test code = 0.2 % 706-2) GRAN MAT x10^3(ANC) 16.86 10*3/uL 1.5-10.3 H (test code = 3338222108) IMM GRAN x10^3 (test 0.15 10*3/uL 0-0.06 H code = 8652399869) LYMPH x10^3 (test code 1.95 10*3/uL 0.7-7.4 = 731-0) MONO x10^3 (test code 2.26 10*3/uL 0-0.5 H = 742-7) EOS x10^3 (test code = 0.07 10*3/uL 0-0.4 711-2) BASO x10^3 (test code 0.04 10*3/uL 0-0.1 = 704-7) Lab Interpretation Abnormal (test code = 32195-4) [facility]"
--- NOTE | 2022-09-09 15:16 | RAD REPORT ---
EXAM DESCRIPTION: RAD - Foot Right 3 View - 09/09/2022 3:05 pm CLINICAL HISTORY: PAIN COMPARISON: <Comparisons> FINDINGS: No bone or joint abnormality.
--- NOTE | 2022-09-09 15:32 | ER ---
Nurse's Notes [facility] Name: Kamilah Pereira Age: 22 yrs Sex: Female : 2000 Arrival Date: 09/09/2022 Time: 14:04 Bed IW1 Private MD: Diagnosis: Sprain of foot Presentation: 09/09 14:14 Chief complaint: Patient states: Was walking down stairs and rolled R ankle. States ph that she heard and felt a pop. Coronavirus screen: Vaccine status: Patient reports being unvaccinated. Ebola Screen: No symptoms or risks identified at this time. Initial Sepsis Screen: Does the patient meet any 2 criteria? No. Patient's initial sepsis screen is negative. Does the patient have a suspected source of infection? No. Patient's initial sepsis screen is negative. Risk Assessment: Do you want to hurt yourself or someone else? Patient reports no desire to harm self or others. Onset of symptoms was September 09, 2022. 14:14 Method Of Arrival: Ambulatory ph 14:14 Acuity: RUSTY 4 ph Historical: - Allergies: 14:16 No Known Allergies; ph - PMHx: 14:16 None; ph - Immunization history:: Adult Immunizations unknown. - Social history:: Smoking status: Patient denies any tobacco usage or history of. Screenin:[address] [facility] ED Fall Risk Assessment (Adult) History of falling in the last 3 months, ph including since admission No falls in past 3 months (0 pts) Confusion or Disorientation No (0 pts) Intoxicated or Sedated No (0 pts) Impaired Gait No (0 pts) Mobility Assist Device Used No (0 pt) Altered Elimination No (0 pt) Score/Fall Risk Level 0 - 2 = Low Risk. Abuse screen: Denies threats or abuse. Denies injuries from another. Nutritional screening: No deficits noted. Tuberculosis screening: No symptoms or risk factors identified. Assessment: 15:32 General: Appears in no apparent distress. comfortable, Behavior is calm, cooperative, ph appropriate for age. Pain: Complains of pain in r foot. Neuro: Level of Consciousness is awake, alert, obeys commands, Oriented to person, place, time, situation. Cardiovascular: Capillary refill < 3 seconds in bilateral fingers Patient's skin is warm and dry. Respiratory: Airway is patent Respiratory effort is even, unlabored. Musculoskeletal: Circulation, motion, and sensation intact. Vital Signs: 14:14 BP 133 / 72; Pulse 86; Resp 18; Temp 97.9; Pulse Ox 98% on R/A; Weight 104.33 kg; ph Height 5 ft. 8 in. ; 14:14 Body Mass Index 34.97 (104.33 kg, 172.72 cm) ph ED Course: 14:05 Patient arrived in ED. rg4 14:06 Jennifer Joe FNP-C [facility] aa5 14:10 Den Morales MD is Attending Physician. kb 14:16 Triage completed. ph 14:17 Arm band placed on Patient placed in an exam room. ph 15:06 Foot Right 3 View XRAY In Process Unspecified. EDMS 15:32 Brianne Stoddard, RN is Primary Nurse. ph 15:33 Patient has correct armband on for positive identification. ph 15:33 No provider procedures requiring assistance completed. Patient did not have IV access ph during this emergency room visit. Administered Medications: No medications were administered Medication: 15:33 VIS not applicable for this client. ph Outcome: 15:31 Discharge ordered by . kb 15:40 Discharged to home ambulatory, with significant other. ph 15:40 Condition: good 15:40 Discharge instructions given to patient, Instructed on discharge instructions, follow up and referral plans. Demonstrated understanding of instructions, follow-up care. 15:55 Patient left the ED. ph Signatures: Dispatcher [employer] EDNE Jennifer Joe FNP-C FNP-Ckb Calderon, Audri, RN RN [facility] Brianne Stoddard RN RN Zee Berg rg4
--- NOTE | 2022-09-09 15:32 | EDPHYS ---
Physician Documentation [facility] Name: Kamilah Means Age: 22 yrs Sex: Female : 2000 Arrival Date: 09/09/2022 Time: 14:04 Bed IW1 Private MD: ED Physician Den Morales HPI: 09/09 15:46 This 22 yrs old Female presents to ER via Ambulatory with complaints of Ankle Injury. kb 15:46 The patient has not recently seen a physician. kb 15:46 The patient presents with an injury, pain, swelling, tenderness. The complaints affect kb the right foot. Context: The problem was sustained at home, resulted from twisted while walking down stairs, the patient can partially bear weight, the patient is able to ambulate, can ambulate using crutches. Onset: The symptoms/episode began/occurred just prior to arrival. Modifying factors: The symptoms are alleviated by nothing, the symptoms are aggravated by weight bearing. Associated signs and symptoms: Pertinent positives: swelling, Pertinent negatives: calf tenderness, fever, nausea, numbness, rash, tingling, vomiting, warmth, weakness. Severity of symptoms: At their worst the symptoms were moderate, in the emergency department the symptoms are unchanged. The patient has not experienced similar symptoms in the past. Historical: - Allergies: 14:16 No Known Allergies; ph - PMHx: 14:16 None; ph - Immunization history:: Adult Immunizations unknown. - Social history:: Smoking status: Patient denies any tobacco usage or history of. ROS: 15:44 Constitutional: Negative for fever, chills, and weight loss. kb 15:44 MS/extremity: Positive for pain, of the dorsum of right foot. 15:44 All other systems are negative. Exam: 15:44 Constitutional: This is a well developed, well nourished patient who is awake, alert, kb and in no acute distress. Head/Face: Normocephalic, atraumatic. ENT: Moist Mucous membranes Cardiovascular: Regular rate and rhythm with a normal S1 and S2. No gallops, murmurs, or rubs. No pulse deficits. Respiratory: Respirations even and unlabored. No increased work of breathing. Talking in full sentences Skin: Warm, dry with normal turgor. Normal color. Neuro: Awake and alert, GCS 15, oriented to person, place, time, and situation. Moves all extremities. Normal gait. 15:44 Musculoskeletal/extremity: Extremities: grossly normal except: noted in the dorsum of right foot: ecchymosis, pain, swelling, tenderness, ROM: intact in all extremities, Circulation is intact in all extremities. Sensation intact. Weight bearing: can bear weight with assistance only, uses crutches. Vital Signs: 14:14 BP 133 / 72; Pulse 86; Resp 18; Temp 97.9; Pulse Ox 98% on R/A; Weight 104.33 kg; ph Height 5 ft. 8 in. ; 14:14 Body Mass Index 34.97 (104.33 kg, 172.72 cm) ph MDM: 14:09 Patient medically screened. kb 15:45 Differential diagnosis: fracture, sprain. Data reviewed: vital signs, nurses notes. kb Counseling: I had a detailed discussion with the patient and/or guardian regarding: the historical points, exam findings, and any diagnostic results supporting the discharge/admit diagnosis, radiology results, the need for outpatient follow up, a family practitioner, a orthopedic surgeon, to return to the emergency department if symptoms worsen or persist or if there are any questions or concerns that arise at home. 09/09 14:09 Order name: Foot Right 3 View XRAY; Complete Time: 15:17 kb Administered Medications: No medications were administered Disposition Summary: 09/09/22 15:31 Discharge Ordered Location: Home kb Condition: Stable kb Diagnosis - Sprain of foot kb Followup: kb - With: Emergency Department - When: As needed - Reason: Worsening of condition Followup: kb - With: Private Physician - When: 2 - 3 days - Reason: Recheck today's complaints, Continuance of care, Re-evaluation by your physician Discharge Instructions: - Discharge Summary Sheet kb - Foot Sprain kb Forms: - Medication Reconciliation Form kb - Thank You Letter kb - Antibiotic Education kb - Prescription Opioid Use kb Prescriptions: - Diclofenac Sodium 75 mg Oral Tablet Sustained Release - take 1 tablet by ORAL route 2 times per day; 30 tablet; Refills: 0, Product kb Selection Permitted Signatures: Dispatcher [employer] Jennifer Rosario, Brianne Baker RN RN ph
[2022-09-09 17:01] VITALS: BP 133/72; TEMP 97.9; O2SAT 98
== END 2022-09-09 15:55 | disposition home or self-care (01) ==
LOC: ER 14:04
DX: S93.601A Unspecified sprain of right foot, initial encounter (principal)

== ENCOUNTER 2023-12-01 19:40 | Emergency (ER) | payer BC ==
--- OUTSIDE RECORDS SUMMARY | 2023-12-01 19:46 | XMS REPORT | Continuity of Care Document ---
Author Name Unknown Address [address] [facility] [address] [place] [address] 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 Role Phone Hailey Wall MD Primary Care Physici an Margaret Dove MD Attending Clinician [phone], [facility] Attending Clinician Unavailable MARGARET DOVE Attending Clinician Unavailable HAILEY WALL Attending Clinician Roxy vailaHailey Godoy MD Attending Clinician Doctor Unassigned, Dennehotso Attending Clinician U navailable MITCHELL JOSHUA Attending Clinician Unavailable MinevilleMitchell Landrum Attending Clinician [phone] Unknown, Attending Attending Clinician Unavailab le Nurse, [facility] Attending Clinician Un available Tori Posada MD Attending Clinician [phone] Lynda Montesinos MD Attending Clinician [phone] Juan Nayak MD Attending Clinician + [phone] Laura Couch MD Attending Clinician [phone] TORI POSADA Attending Clinician Unavailable Pob, [facility] Main Attending Clinician Unavailabl e Ultrasound, [facility] Attending Clinician UnavailGuerita Mckoy MD Attending Clinician [phone] GUERITA TIWARI Attending Clinician Unavailable Milagros Peralta MD Attending Clinician + MARGARET DOVE Admitting Clinician Unavailable Malini BISHOP, Juan Admitting Clinician [phone] JUAN NAYAK Admitting Clinician Unavaileladio Dove MD, Margaret Alba Admitting Clinician [phone] Milagros Peralta MD Admitting Clinician + Payers Payer Name Policy Type Policy Number Effective Date Expirati on Date Source [facility] [employer] [id number] 2016 00:00:00 [employer] MEDICAID [id number] 2019 00:00:00 Problems Condition Name Condition Details Condition Category Status Onset Date Resolution Date Last Treatment Date Treating Clinician Comments Source Acute respirator y failure with hypoxia and hypercapni a Acute respirator y failure with hypoxia and hypercapni a Disease Active 2020-0 10-19 00:00: 00 [facility] Acute deep vein thrombosis (DVT) of left lower extremity Acute deep vein thrombosis (DVT) of left lower extremity Disease Active 20200 10-18 00:00: 00 [facility] Single subsegment al pulmonary embolism without acute cor pulmonale Single subsegment al pulmonary embolism without acute cor pulmonale Disease Active 20200 10-17 00:00: 00 [facility] Gestationa l hypertensi on, third trimester Gestationa l hypertensi on, third trimester Disease Active 20200 09-29 00:00: 00 [facility] 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 Disease Active 20200 09-29 00:00: 00 [facility] Normal spontaneou s vaginal delivery Normal spontaneou s vaginal delivery Disease Active 20200 09-29 00:00: 00 [facility] Uterine atony, , current hospitaliz ation Uterine atony, , current hospitaliz ation Disease Active 20200 6 00:00: 00 [facility] Other immediate hemorrhage Other immediate hemorrhage Disease Active 20200 6 00:00: 00 [facility] Recurrent UTI (urinary tract infection) complicati ng Recurrent UTI (urinary tract infection) complicati ng Disease Active 2020-0 1-20 00:00: 00 [facility] High risk teen in third trimester High risk teen in third trimester Disease Active 1-19 00:00: 00 [facility] Nausea & vomiting Nausea & vomiting Disease Active 1- 00:00: 00 [facility] 17 weeks gestation of 17 weeks gestation of Disease Active 1-19 00:00: 00 [facility] Obesity in Obesity in Disease Active 1- 00:00: 00 [facility] 37 weeks gestation of 37 weeks gestation of Disease Active 1- 00:00: 00 [facility] Allergies, Adverse Reactions, Alerts Allergy Name Allergy Type Status Severity Reaction(s) Onset Date Inactive Date Treating Clinician Comments Source NO KNOWN ALLERGIE S Drug Class Active [facility] Social History Social Habit Start Date Stop Date Quantity Comments Source ASSERTION 2019-01-22 00:00:00 [facility] Exposure to SARS-CoV-2 (event) Not sure [facility] History SDOH Alcohol Std Drinks [facility] History SDOH Alcohol Binge [facility] Gender identity [facility] intake 2023-07-10 00:00:00 2023-07-10 00:00:00 Lifetime non-drinker (finding) [facility] History of Social function 2022-12-11 00:00:00 2022-12-11 00:00:00 [facility] Tobacco use and exposure 2022-02-21 00:00:00 2022-02-21 00:00:00 Former smokeless tobacco user [facility] Tobacco Comment 2022-02-21 00:00:00 2022-02-21 00:00:00 past use of vapes [facility] History SDOH Alcohol Frequency 2019-02-11 00:00:00 2019-02-11 00:00:00 1 [facility] Sex Assigned At 2000 00:00:00 2000 00:00:00 [facility] Smoking Status Start Date Stop Date Source Never smoked tobacco [facility] Medications Ordered Medication Name Filled Medication Name Start Date Stop Date Current Medication? Ordering Clinician Indication Dosage Frequency Signature (SIG) Comments Components Source cefTRIAXone (ROCEPHIN) injection 500 mg 12-11 15:15: 00 12-11 15:23 :00 No [id number] 500mg [facility] vit calc,iron,f olic ( VITAMIN ORAL) 12-11 09:19: 07 12-11 00:00 :00 No Take by mouth. [facility] doxycycline hyclate 100 mg tablet 12-11 00:00: 00 12-19 04:59 :00 No [id number] 100mg Take 1 tablet by mouth in the morning and 1 tablet in the evening. Do all this for 7 days. [facility] cefTRIAXone (ROCEPHIN) injection 500 mg 2021-04 23:30: 00 02-21 22:52 :00 No [id number] 500mg [facility] vit calc,iron,f olic ( VITAMIN ORAL) 2021-04 17:15: 36 Yes Take by mouth. [facility] doxycycline monohydrate 100 mg capsule 2021-04 00:00: 00 03-01 05:59 :00 No [id number] 100mg Take 1 capsule by mouth in the morning and 1 capsule in the evening. Do all this for 7 days. [facility] vit calc,iron,f olic ( VITAMIN ORAL) 10-01 23:47: 01 Yes Take by mouth. [facility] vit calc,iron,f olic ( VITAMIN ORAL) 10-01 18:47: 01 Yes Take by mouth. [facility] cephALEXin 500 mg capsule 10-01 00:00: 00 12-11 00:00 :00 No [id number] 500mg Take 1 capsule by mouth 3 (three) times daily. [facility] docusate calcium 240 mg capsule 10-01 00:00: 00 12-11 00:00 :00 No [id number] 240mg Take 1 capsule by mouth once daily as needed for Constipati on. [facility] ferrous sulfate 325 mg (65 mg iron) tablet 10-01 00:00: 00 12-11 00:00 :00 No [id number] 325mg Take 1 tablet by mouth 2 (two) times daily. [facility] ibuprofen 600 mg tablet 10-01 00:00: 12-11 00:00 :00 No [id number] 600mg Take 1 tablet by mouth every 6 (six) hours as needed (Pain). Take with food or milk. [facility] cephALEXin (KEFLEX) capsule 500 mg 09-30 23:00: 00 Yes 500mg 500 mg, Oral, Q8H, First dose on Fri10/01/19 at 1800, Until Discontinu ed, LATOSHA
Re ason for Anti-Infec tive: Empiric Therapy for Suspected Infection [facility] ferrous sulfate tablet 325 mg 09-30 13:00: 00 Yes 325mg 325 mg, Oral, TID MEALS, First dose on Fri10/01/19 at 0800, Until Discontinu ed, Routine [facility] NaCl 0.9% (NS) IV infusion 1,000 mL 09-30 04:00: 00 Yes 1000mL at 100 mL/hr, IV Infusion, CONTINUOUS , Starting Yoselin 09/30/19 at 2300, Until Discontinu ed, Routine [facility] ceFAZolin (ANCEF) 1,000 mg in NaCl 0.9% (NS) 50 mL MINI-BAG 09-29 19:00: 00 09-30 08:08 :00 No 1000mg 1,000 mg, IV Piggyback, Q6H ABX, 3 doses, First dose on Fri09/30/19 at 1400, Last dose on Fri10/01/19 at 0200, 50 mL
Reas on for Anti-Infec tive: Empiric Non-Surgic al Prophylaxi s
Durat ion of therapy: 72 hours
S pecific indication : Endometrit is prophylaxi s [facility] lactated ringers IV infusion 1,000 mL 09-29 17:45: 00 09-29 17:47 :00 No 1000mL at 999 mL/hr, 1,000 mL, IV Infusion, ONCE, 1 dose, Yoselin 09/30/19 at 1300, STAT [facility] loperamide (IMODIUM A-D) capsule 2 mg 09-29 14:26: 19 Yes 2mg 2 mg, Oral, Q4HPRN, Starting Yoselin 09/30/19 at 0926, Until Discontinu ed, Routine, Diarrhea [facility] vitamin w/FA (PRENATABS RX) tablet 1 tablet 09-29 14:00: 00 Yes 1{tbl} 1 tablet, Oral, DAILY, First dose on Yoselin 09/30/19 at 0900, Until Discontinu ed, Routine [facility] miSOPROStol (CYTOTEC) tablet 1,000 mcg 09-29 13:00: 00 09-29 12:58 :00 No 1000ug 1,000 mcg, Rectal, QID, 1 dose, First dose on Yoselin 09/30/19 at 0800, Routine [facility] ceFAZolin in dextrose (iso-os) (ANCEF) 2 gram/100 mL Piggyback 2 g 09-29 12:45: 00 09-29 12:06 :00 No 2000mg 2 g (2,000 mg), IV Piggyback, ONCE, 1 dose, Yoselin 09/30/19 at 0745, 100 mL
Reas on for Anti-Infec tive: Empiric Non-Surgic al Prophylaxi s
Durat ion of therapy: 72 hours [facility] LR 1000 mL + oxytocin 20 units IV Solution 09-29 12:00: 00 Yes at 125 mL/hr, IV Infusion, CONTINUOUS , Starting Yoselin 09/30/19 at 0700, Until Discontinu ed, LATOSHA [facility] oxytocin (PITOCIN) injection 20 Units 09-29 11:45: 00 Yes 20U 20 Units, IV Piggyback, CONTINUOUS , Starting Yoselin 09/30/19 at 0645, Until Discontinu ed, Routine [facility] carboprost (HEMABATE) injection 250 mcg 09-29 11:45: 00 09-29 11:00 :00 No 250ug 250 mcg, Intramuscu lar, ONCE, 1 dose, Yoselin 09/30/19 at 0645, Routine [facility] oxytocin (PITOCIN) 40 Units in lactated ringers 1,000 mL IV infusion 09-29 11:45: 00 09-29 11:45 :00 No at 999 mL/hr, IV Infusion, ONCE, 1 dose, Yoselin 09/30/19 at 0645, Routine [facility] ondansetron (ZOFRAN (PF)) injection 4 mg 09-29 11:30: 00 09-29 10:39 :00 No 4mg 4 mg, Slow IV Push, ONCE, 1 dose, Yoselin 09/30/19 at 0630, Routine [facility] carboprost (HEMABATE) injection 250 mcg 09-29 11:15: 00 09-29 10:00 :00 No 250ug 250 mcg, Intramuscu lar, ONCE, 1 dose, Yoselin 09/30/19 at 0615, Routine [facility] rho(D) immune globulin (RHOGAM) syringe 300 mcg 09-29 11:03: 30 Yes 300ug 300 mcg, Intramuscu lar, ONCE, For 1 dose, Conditiona l, Routine [facility] ibuprofen (IBU) tablet 600 mg 09-29 10:56: 37 Yes 600mg 600 mg, Oral, Q6HPRN, Starting Yoselin 09/30/19 at 0556, Until Discontinu ed, Routine, Pain (scale 4-6) [facility] acetaminoph en (TYLENOL) tablet 650 mg 09-29 10:56: 37 Yes 650mg 650 mg, Oral, Q6HPRN, Starting Yoselin 09/30/19 at 0556, Until Discontinu ed, Routine, Pain (scale 1-3) [facility] diphenhydrA MINE (BENADRYL) tablet 25 mg 09-29 10:56: 37 Yes 25mg 25 mg, Oral, Q6HPRN, Starting Fri09/30/19 at 0556, Until Discontinu ed, Routine, Sleep, Itching [facility] diphenhydrA MINE-0.9 % sod.chlr (BENADRYL) 25 mg/50 mL piggyback 25 mg 09-29 10:56: 37 Yes 25mg 25 mg, IV Piggyback, Administer over 30 Minutes, Q6HPRN, Starting Yoselin 09/30/19 at 0556, Until Discontinu ed, Routine, Itching [facility] ondansetron (ZOFRAN (PF)) injection 4 mg 09-29 10:56: 36 Yes 4mg 4 mg, Slow IV Push, Q8HPRN, Starting Fri09/30/19 at 0556, Until Discontinu ed, Routine, Nausea and Vomiting (N/V) [facility] simethicone (GAS RELIEF (SIMETHICON E)) chewable tablet 160 mg 09-29 10:56: 36 Yes 160mg 160 mg, Oral, PC+HSPRN, Starting Fri09/30/19 at 0556, Until Discontinu ed, Routine, Gas [facility] docusate calcium (SURFAK) capsule 240 mg 09-29 10:56: 36 Yes 240mg 240 mg, Oral, QDAILYPRN, Starting Fri09/30/19 at 0556, Until Discontinu ed, Routine, Constipati on [facility] magnesium hydroxide (MILK OF MAGNESIA) 400 mg/5 mL suspension 30 mL 09-29 10:56: 36 Yes 30mL 30 mL, Oral, QDAILYPRN, Starting Fri09/30/19 at 0556, Until Discontinu ed, Routine, Constipati on [facility] benzocaine- menthol (DERMOPLAST ) 20-0.5 % topical spray 09-29 10:56: 36 Yes Topical, PRN, Starting Fri09/30/19 at 0556, Until Discontinu ed, Routine, Perineum discomfort [facility] diphenoxyla te-atropine (LOMOTIL) 2.5-0.025 mg per tablet 1 tablet 09-29 10:04: 00 09-29 10:39 :00 No 1{tbl} 1 tablet, Oral, ONCE, 1 dose, Yoselin 09/30/19 at 0515, Routine [facility] FENTanyl 2 mcg/mL + bupivacaine 0.125% in NS 250 mL epidural bag 09-29 08:41: 00 09-29 13:16 :27 No Intra-op [facility] nalbuphine (NUBAIN) injection 10 mg 09-29 06:05: 24 09-29 11:03 :26 No 10mg 10 mg, Intravenou s, Q2HPRN, 4 doses, Starting Yoselin 09/30/19 at 0105, Until Yoselin 09/30/19 at 0603, Routine, Pain (scale 7-10) [facility] lactated ringers IV infusion 1,000 mL 09-29 05:00: 00 09-29 11:03 :26 No 1000mL at 125 mL/hr, 1,000 mL, IV Infusion, CONTINUOUS , Starting Yoselin 09/30/19 at 0000, Until Yoselin 09/30/19 at 0603, Routine [facility] acetaminoph en (TYLENOL) tablet 1,000 mg 09-29 03:58: 00 09-29 04:48 :00 No 1000mg 1,000 mg, Oral, ONCE, 1 dose, 09/29/19 at 2300, Routine [facility] lactated ringers IV infusion 1,000 mL 09-29 03:50: 00 09-29 11:03 :26 No 1000mL at 1,000 mL/hr, 1,000 mL, IV Infusion, ONCE, 1 dose, 09/29/19 at 2300, Routine [facility] vit calc,iron,f olic ( VITAMIN ORAL) 09-29 02:06: 01 Yes Take by mouth. [facility] vit calc,iron,f olic ( VITAMIN ORAL) 15 13:44: 06 Yes Take by mouth. [facility] vit calc,iron,f olic ( VITAMIN ORAL) 09-01 16:25: 21 Yes Take by mouth. [facility] terbutaline (BRETHINE) injection 0.25 mg 09-01 13:00: 00 09-01 12:07 :00 No .25mg 0.25 mg, Subcutaneo us, ONCE, 1 dose, Yoselin 09/02/19 at 0800, Routine [facility] lactated ringers IV infusion 1,000 mL 09-01 12:00: 00 Yes 1000mL at 125 mL/hr, 1,000 mL, IV Infusion, CONTINUOUS , Starting Yoselin 09/02/19 at 0700, Until Discontinu ed, Routine [facility] doxylamine- pyridoxine, vit B6, (DICLEGIS) 10-10 mg per tablet 08-11 00:00: 00 10-01 00:00 :00 No [id number] 1{tbl} Take 1 tablet by mouth at bedtime. [facility] sulfamethox azole-trime thoprim 800-160 mg per tablet 08-04 00:00: 00 10-01 00:00 :00 No [id number] 1{tbl} Take 1 tablet by mouth 2 (two) times daily. [facility] sulfamethox azole-trime thoprim 800-160 mg per tablet 07-10 00:00: 00 08-04 00:00 :00 No [id number] 1{tbl} Take 1 tablet by mouth 2 (two) times daily. [facility] cephALEXin 500 mg capsule 05-18 00:00: 00 10-01 00:00 :00 No [id number] 500mg Take 1 capsule by mouth daily. [facility] vit calc,iron,f olic ( VITAMIN ORAL) 05-10 08:44: 00 Yes Take by mouth. [facility] lactated ringers IV infusion 500 mL 05-10 07:15: 00 05-10 06:31 :00 No 500mL at 999 mL/hr, 500 mL, Intravenou s, ONCE, 1 dose, 05/10/19 at 0115, Routine [facility] doxylamine- pyridoxine, vit B6, (DICLEGIS) 10-10 mg per tablet 05-10 00:00: 00 08-11 00:00 :00 No [id number] 1{tbl} Take 1 tablet by mouth at bedtime. [facility] cephALEXin 500 mg capsule 05-10 00:00: 00 05-18 05:59 :00 No [id number] 500mg Take 1 capsule by mouth 2 (two) times daily for 7 days. [facility] Immunizations Ordered Immunization Name Filled Immunization Name Date Status Comments Source TDAP (ADACEL) VACCINE 2019-08-05 00:00:00 Completed [facility] TDAP (ADACEL) VACCINE 2019-08-05 00:00:00 Completed [facility] TDAP (ADACEL) VACCINE 2019-08-05 00:00:00 Completed [facility] TDAP (ADACEL) VACCINE 2019-08-05 00:00:00 Completed [facility] TDAP (ADACEL) VACCINE 2019-08-05 00:00:00 Completed [facility] TDAP (ADACEL) VACCINE 2019-08-05 00:00:00 Completed [facility] TDAP (ADACEL) VACCINE 2019-08-05 00:00:00 Completed [facility] TDAP (ADACEL) VACCINE 2019-08-05 00:00:00 Completed [facility] TDAP (ADACEL) VACCINE 2019-08-05 00:00:00 Completed [facility] TDAP (ADACEL) VACCINE 2019-08-05 00:00:00 Completed [facility] TDAP (ADACEL) VACCINE 2019-08-05 00:00:00 Completed [facility] TDAP (ADACEL) VACCINE 2019-08-05 00:00:00 Completed [facility] TDAP (ADACEL) VACCINE 2019-08-05 00:00:00 Completed [facility] TDAP (ADACEL) VACCINE 2019-08-05 00:00:00 Completed [facility] TDAP (ADACEL) VACCINE 2019-08-05 00:00:00 Completed [facility] TDAP (ADACEL) VACCINE 2019-08-05 00:00:00 Completed [facility] TDAP (ADACEL) VACCINE 2019-08-05 00:00:00 Completed [facility] TDAP (ADACEL) VACCINE 2019-08-05 00:00:00 Completed [facility] TDAP (ADACEL) VACCINE 2019-08-05 00:00:00 Completed [facility] TDAP (ADACEL) VACCINE 2019-08-05 00:00:00 Completed [facility] TDAP (ADACEL) VACCINE 2019-08-05 00:00:00 Completed [facility] TDAP (ADACEL) VACCINE 2019-08-05 00:00:00 Completed [facility] TDAP (ADACEL) VACCINE 2019-08-05 00:00:00 Completed [facility] TDAP (ADACEL) VACCINE 2019-08-05 00:00:00 Completed [facility] TDAP (ADACEL) VACCINE Unknown Completed [facility] TDAP (ADACEL) VACCINE Unknown Completed [facility] TDAP (ADACEL) VACCINE Unknown Completed [facility] TDAP (ADACEL) VACCINE Unknown Completed [facility] Vital Signs Vital Name Observation Time Observation Value Comments S ource Systolic blood pressure 2023-07-10 19:06:00 130 mm[Hg] [facility] Diastolic blood pressure 2023-07-10 19:06:00 84 mm[Hg] [facility] Heart rate 2023-07-10 19:06:00 94 /min [facility] Body temperature 2023-07-10 19:06:00 36.72 Melva [facility] Respiratory rate 2023-07-10 19:06:00 18 /min [facility] Body height 2023-07-10 19:06:00 175.3 cm [facility] Body weight 2023-07-10 19:06:00 110.224 kg [facility] BMI 2023-07-10 19:06:00 35.88 kg/m2 [facility] Systolic blood pressure 2022-12-11 14:11:00 131 mm[Hg] [facility] Diastolic blood pressure 2022-12-11 14:11:00 81 mm[Hg] [facility] Heart rate 2022-12-11 14:11:00 87 /min [facility] Respiratory rate 2022-12-11 14:11:00 18 /min [facility] Body height 2022-12-11 14:11:00 172.7 cm [facility] Body weight 2022-12-11 14:11:00 104.01 kg [facility] BMI 2022-12-11 14:11:00 34.86 kg/m2 [facility] Oxygen saturation in Arterial blood by Pulse oximetry 2022-12-11 14:11:00 99 /min [facility] Systolic blood pressure 2022-02-21 22:15:00 110 mm[Hg] [facility] Diastolic blood pressure 2022-02-21 22:15:00 65 mm[Hg] [facility] Heart rate 2022-02-21 22:15:00 89 /min [facility] Body temperature 2022-02-21 22:15:00 37.17 Melva [facility] Respiratory rate 2022-02-21 22:15:00 16 /min [facility] Body height 2022-02-21 22:15:00 172.7 cm [facility] Body weight 2022-02-21 22:15:00 96.163 kg [facility] BMI 2022-02-21 22:15:00 32.23 kg/m2 [facility] Oxygen saturation in Arterial blood by Pulse oximetry 2022-02-21 22:15:00 100 /min [facility] Systolic blood pressure 2019-10-15 20:38:00 125 mm[Hg] [facility] Diastolic blood pressure 2019-10-15 20:38:00 78 mm[Hg] [facility] Heart rate 2019-10-15 20:38:00 90 /min [facility] Body temperature 2019-10-15 20:38:00 37.11 Melva [facility] Respiratory rate 2019-10-15 20:38:00 18 /min [facility] Body height 2019-10-15 20:38:00 172.7 cm [facility] Body weight 2019-10-15 20:38:00 105.325 kg [facility] BMI 2019-10-15 20:38:00 35.31 kg/m2 [facility] Systolic blood pressure 2019-10-15 20:38:00 125 mm[Hg] [facility] Diastolic blood pressure 2019-10-15 20:38:00 78 mm[Hg] [facility] Heart rate 2019-10-15 20:38:00 90 /min [facility] Body temperature 2019-10-15 20:38:00 37.11 Melva [facility] Respiratory rate 2019-10-15 20:38:00 18 /min [facility] Body height 2019-10-15 20:38:00 172.7 cm [facility] Body weight 2019-10-15 20:38:00 105.325 kg [facility] BMI 2019-10-15 20:38:00 35.31 kg/m2 [facility] Body temperature 2019-10-02 12:29:00 36.67 Melva [facility] Respiratory rate 2019-10-02 12:29:00 16 /min [facility] Oxygen saturation in Arterial blood by Pulse oximetry 2019-10-02 12:29:00 98 /min [facility] Systolic blood pressure 2019-10-02 05:50:00 134 mm[Hg] [facility] Diastolic blood pressure 2019-10-02 05:50:00 89 mm[Hg] [facility] Heart rate 2019-10-02 05:50:00 97 /min [facility] Body height 2019-09-30 02:13:00 172.7 cm [facility] Body weight 2019-09-30 02:13:00 116.574 kg [facility] BMI 2019-09-30 02:13:00 39.08 kg/m2 [facility] Body temperature 2019-10-02 12:29:00 36.67 Melva [facility] Respiratory rate 2019-10-02 12:29:00 16 /min [facility] Oxygen saturation in Arterial blood by Pulse oximetry 2019-10-02 12:29:00 98 /min [facility] Systolic blood pressure 2019-10-02 05:50:00 134 mm[Hg] [facility] Diastolic blood pressure 2019-10-02 05:50:00 89 mm[Hg] [facility] Heart rate 2019-10-02 05:50:00 97 /min [facility] Body height 2019-09-30 02:13:00 172.7 cm [facility] Body weight 2019-09-30 02:13:00 116.574 kg [facility] BMI 2019-09-30 02:13:00 39.08 kg/m2 [facility] Systolic blood pressure 2019-09-24 17:13:00 124 mm[Hg] [facility] Diastolic blood pressure 2019-09-24 17:13:00 87 mm[Hg] [facility] Heart rate 2019-09-24 16:32:00 103 /min [facility] Body temperature 2019-09-24 16:32:00 36.83 Melva [facility] Respiratory rate 2019-09-24 16:32:00 18 /min [facility] Body height 2019-09-24 16:32:00 172.7 cm [facility] Body weight 2019-09-24 16:32:00 115.667 kg [facility] BMI 2019-09-24 16:32:00 38.77 kg/m2 [facility] Systolic blood pressure 2019-09-24 17:13:00 124 mm[Hg] [facility] Diastolic blood pressure 2019-09-24 17:13:00 87 mm[Hg] [facility] Heart rate 2019-09-24 16:32:00 103 /min [facility] Body temperature 2019-09-24 16:32:00 36.83 Melva [facility] Respiratory rate 2019-09-24 16:32:00 18 /min [facility] Body height 2019-09-24 16:32:00 [facility]7 [facility] Body weight 2019-09-24 16:32:00 115.667 kg [facility] BMI 2019-09-24 16:32:00 38.77 [facility]2 [facility] Systolic blood pressure 2019-09-16 19:12:00 129 mm[Hg] [facility] Diastolic blood pressure 2019-09-16 19:12:00 85 mm[Hg] [facility] Heart rate 2019-09-16 19:12:00 110 /min [facility] Body temperature 2019-09-16 19:12:00 36.67 Melva [facility] Respiratory rate 2019-09-16 19:12:00 18 /min [facility] Body weight 2019-09-16 19:12:00 116.121 kg [facility] BMI 2019-09-16 19:12:00 38.92 kg/m2 [facility] Systolic blood pressure 2019-09-16 19:12:00 129 mm[Hg] [facility] Diastolic blood pressure 2019-09-16 19:12:00 85 mm[Hg] [facility] Heart rate 2019-09-16 19:12:00 110 /min [facility] Body temperature 2019-09-16 19:12:00 36.67 [facility] Respiratory rate 2019-09-16 19:12:00 18 /min [facility] Body weight 2019-09-16 19:12:00 116.121 kg [facility] BMI 2019-09-16 19:12:00 38.92 kg/m2 [facility] Systolic blood pressure 2019-09-10 16:52:00 124 mm[Hg] [facility] Diastolic blood pressure 2019-09-10 16:52:00 82 mm[Hg] [facility] Heart rate 2019-09-10 16:52:00 111 /min [facility] Body temperature 2019-09-10 16:52:00 36.78 [facility] Respiratory rate 2019-09-10 16:52:00 18 /min [facility] Body height 2019-09-10 16:52:00 172.7 cm [facility] Body weight 2019-09-10 16:52:00 115.667 kg [facility] BMI 2019-09-10 16:52:00 38.77 kg/m2 [facility] Systolic blood pressure 2019-09-10 16:52:00 124 mm[Hg] [facility] Diastolic blood pressure 2019-09-10 16:52:00 82 mm[Hg] [facility] Heart rate 2019-09-10 16:52:00 111 /min [facility] Body temperature 2019-09-10 16:52:00 36.78 [facility] Respiratory rate 2019-09-10 16:52:00 18 /min [facility] Body height 2019-09-10 16:52:00 172.7 cm [facility] Body weight 2019-09-10 16:52:00 115.667 kg [facility] BMI 2019-09-10 16:52:00 38.77 kg/m2 [facility] Systolic blood pressure 2019-09-03 12:00:00 128 mm[Hg] [facility] Diastolic blood pressure 2019-09-03 12:00:00 76 mm[Hg] [facility] Heart rate 2019-09-03 12:00:00 121 /min [facility] Body temperature 2019-09-03 12:00:00 36.72 [facility] Respiratory rate 2019-09-03 12:00:00 18 /min [facility] Body height 2019-09-03 12:00:00 172.7 cm [facility] Body weight 2019-09-03 12:00:00 117.028 kg [facility] BMI 2019-09-03 12:00:00 39.23 kg/m2 [facility] Oxygen saturation in Arterial blood by Pulse oximetry 2019-09-03 12:00:00 100 /min [facility] Systolic blood pressure 2019-09-03 12:00:00 128 mm[Hg] [facility] Diastolic blood pressure 2019-09-03 12:00:00 76 mm[Hg] [facility] Heart rate 2019-09-03 12:00:00 121 /min [facility] Body temperature 2019-09-03 12:00:00 36.72 [facility] Respiratory rate 2019-09-03 12:00:00 18 /min [facility] Body height 2019-09-03 12:00:00 172.7 cm [facility] Body weight 2019-09-03 12:00:00 117.028 kg [facility] BMI 2019-09-03 12:00:00 39.23 kg/m2 [facility] Oxygen saturation in Arterial blood by Pulse oximetry 2019-09-03 12:00:00 100 /min [facility] Heart rate 2019-09-02 13:30:00 109 /min [facility] Oxygen saturation in Arterial blood by Pulse oximetry 2019-09-02 12:15:00 100 /min [facility] Systolic blood pressure 2019-09-02 11:00:00 127 mm[Hg] [facility] Diastolic blood pressure 2019-09-02 11:00:00 76 mm[Hg] [facility] Body temperature 2019-09-02 09:55:00 37.17 [facility] Respiratory rate 2019-09-02 09:55:00 18 /min [facility] Body height 2019-09-02 09:55:00 172.7 cm [facility] Body weight 2019-09-02 09:55:00 117.482 kg [facility] BMI 2019-09-02 09:55:00 39.38 kg/m2 [facility] Heart rate 2019-09-02 13:30:00 109 /min [facility] Oxygen saturation in Arterial blood by Pulse oximetry 2019-09-02 12:15:00 100 /min [facility] Systolic blood pressure 2019-09-02 11:00:00 127 mm[Hg] [facility] Diastolic blood pressure 2019-09-02 11:00:00 76 mm[Hg] [facility] Body temperature 2019-09-02 09:55:00 37.17 [facility] Respiratory rate 2019-09-02 09:55:00 18 /min [facility] Body height 2019-09-02 09:55:00 172.7 cm [facility] Body weight 2019-09-02 09:55:00 117.482 kg [facility] BMI 2019-09-02 09:55:00 39.38 kg/m2 [facility] Systolic blood pressure 2019-08-27 20:52:00 130 mm[Hg] [facility] Diastolic blood pressure 2019-08-27 20:52:00 84 mm[Hg] [facility] Heart rate 2019-08-27 20:52:00 99 /min [facility] Body temperature 2019-08-27 20:52:00 36.78 [facility] Respiratory rate 2019-08-27 20:52:00 18 /min [facility] Body height 2019-08-27 20:52:00 172.7 cm [facility] Body weight 2019-08-27 20:52:00 117.028 kg [facility] BMI 2019-08-27 20:52:00 39.23 kg/m2 [facility] Systolic blood pressure 2019-08-27 20:52:00 130 mm[Hg] [facility] Diastolic blood pressure 2019-08-27 20:52:00 84 mm[Hg] [facility] Heart rate 2019-08-27 20:52:00 99 /min [facility] Body temperature 2019-08-27 20:52:00 36.78 [facility] Respiratory rate 2019-08-27 20:52:00 18 /min [facility] Body height 2019-08-27 20:52:00 172.7 cm [facility] Body weight 2019-08-27 20:52:00 117.028 kg [facility] BMI 2019-08-27 20:52:00 39.23 kg/m2 [facility] Systolic blood pressure 2019-08-05 18:54:00 128 mm[Hg] [facility] Diastolic blood pressure 2019-08-05 18:54:00 83 mm[Hg] [facility] Heart rate 2019-08-05 18:54:00 100 /min [facility] Body temperature 2019-08-05 18:54:00 36.89 [facility] Respiratory rate 2019-08-05 18:54:00 18 /min [facility] Body height 2019-08-05 18:54:00 172.7 cm [facility] Body weight 2019-08-05 18:54:00 116.574 kg [facility] BMI 2019-08-05 18:54:00 39.08 kg/m2 [facility] Systolic blood pressure 2019-08-05 18:54:00 128 mm[Hg] [facility] Diastolic blood pressure 2019-08-05 18:54:00 83 mm[Hg] [facility] Heart rate 2019-08-05 18:54:00 100 /min [facility] Body temperature 2019-08-05 18:54:00 36.89 [facility] Respiratory rate 2019-08-05 18:54:00 18 /min [facility] Body height 2019-08-05 18:54:00 172.7 cm [facility] Body weight 2019-08-05 18:54:00 116.574 kg [facility] BMI 2019-08-05 18:54:00 39.08 kg/m2 [facility] Systolic blood pressure 2019-07-08 16:06:00 136 mm[Hg] [facility] Diastolic blood pressure 2019-07-08 16:06:00 87 mm[Hg] [facility] Heart rate 2019-07-08 16:06:00 98 /min [facility] Body temperature 2019-07-08 16:06:00 36.78 [facility] Respiratory rate 2019-07-08 16:06:00 18 /min [facility] Body height 2019-07-08 16:06:00 172.7 cm [facility] Body weight 2019-07-08 16:06:00 114.306 kg [facility] BMI 2019-07-08 16:06:00 38.32 kg/m2 [facility] Heart rate 2019-06-10 15:44:00 99 /min [facility] Body temperature 2019-06-10 15:44:00 36.72 [facility] Respiratory rate 2019-06-10 15:44:00 18 /min [facility] Body weight 2019-06-10 15:44:00 115.214 kg [facility] Systolic blood pressure 2019-06-10 15:44:00 135 mm[Hg] [facility] Diastolic blood pressure 2019-06-10 15:44:00 89 mm[Hg] [facility] Systolic blood pressure 2019-05-13 17:48:00 137 mm[Hg] [facility] Diastolic blood pressure 2019-05-13 17:48:00 86 mm[Hg] [facility] Heart rate 2019-05-13 17:47:00 103 /min [facility] Body temperature 2019-05-13 17:47:00 36.61 [facility] Respiratory rate 2019-05-13 17:47:00 18 /min [facility] Body height 2019-05-13 17:47:00 172.7 cm [facility] Body weight 2019-05-13 17:47:00 115.667 kg [facility] BMI 2019-05-13 17:47:00 38.77 kg/m2 [facility] Systolic blood pressure 2019-05-10 07:45:00 115 mm[Hg] [facility] Diastolic blood pressure 2019-05-10 07:45:00 60 mm[Hg] [facility] Heart rate 2019-05-10 07:45:00 102 /min [facility] Respiratory rate 2019-05-10 07:45:00 17 /min [facility] Oxygen saturation in Arterial blood by Pulse oximetry 2019-05-10 07:45:00 100 /min [facility] Body weight 2019-05-10 06:00:00 117.028 kg [facility] Body temperature 2019-05-10 05:36:00 36.33 [facility] Procedures Procedure Date / Time Performed Performing Clinician Source POCT TEST 2023-07-10 00:00:00 Margaret Dove [facility] POCT TEST 2022-12-11 14:35:00 Hailey Wood [facility] ASSIGNMENT OF BENEFITS 2022-12-11 14:07:42 Docto r Unassigned, [place] [facility] ASSIGNMENT OF BENEFITS 2022-02-21 21:38:54 Docto r Unassigned, [place] [facility] BASIC METABOLIC PANEL (NA, K, CL, CO2, GLUCOSE, BUN, CREATININE, CA) 2019-10-01 08:41:00 Lynda Montesinos [facility] CBC WITH DIFFERENTIAL 2019-10-01 08:41:00 Lynda Montesinos [facility] BASIC METABOLIC PANEL (NA, K, CL, CO2, GLUCOSE, BUN, CREATININE, CA) 2019-09-30 19:22:00 Lynda Montesinos [facility] PROFILE / HEMOGRAM 2019-09-30 19:22:00 Adum, Margaret Alba [facility] HEMOGLOBIN 2019-09-30 13:55:00 Adum, Margaret Alba [facility] HEMATOCRIT 2019-09-30 13:55:00 Adum, Margaret Alba [facility] PREPARE PACKED RBC 2019-09-30 13:54:27 Doctor Un assigned, [place] [facility] HEMOGLOBIN 2019-09-30 11:53:00 Adum, Margaret Alba [facility] HEMATOCRIT 2019-09-30 11:53:00 Adum, Margaret Alba [facility] ACTIVATED PARTIAL THRMPLAS GUALBERTO 2019-09-30 11:53:00 Adum, Margaret Alba [facility] VENOUS CORD GAS 2019-09-30 10:13:00 Adum, Margaret Ruiz [facility] CENTRAL NEURAXIAL BLOCK 2019-09-30 09:05:33 Paula Couch [facility] URINE CULTURE 2019-09-30 06:16:00 Adum, Margaret [facility] PROTEIN CREAT RATIO URINE RANDOM 2019-09-30 06:16:00 Adum, Margaret Alba [facility] COVID-19 (ID NOW RAPID TESTING) 2019-09-30 06:16:00 Adum, Margaret Alba [facility] URIC ACID 2019-09-30 04:21:00 Adum, Margaret Alba [facility] COMP. METABOLIC PANEL (57910) 2019-09-30 04:21:00 Adum, Margaret Alba [facility] CBC WITH DIFFERENTIAL 2019-09-30 04:21:00 Adum, Margaret Alba [facility] HEPATITIS B SURFACE ANTIBODY 2019-09-30 04:21:00 Adum, Margaret Anjali [facility] ADC OR ROZINA ONLY - RPR 2019-09-30 04:21:00 Adum, Margaret Alba [facility] HIV 1/2 AG-AB WITH REFLEX 2019-09-30 04:21:00 Adum, Margaret Anjali [facility] HB ABO GROUPING 2019-09-30 04:20:00 Adum, Margaret Alba [facility] RHO (D) IMMUNE GLOBULIN 2019-09-30 04:20:00 Adum, Ale rosa Alba [facility] NOTICE OF PRIVACY PRACTICES 2019-09-30 02:03:09 Doctor Unassigned, [place] [facility] CONSENT/REFUSAL FOR DIAGNOSIS AND TREATMENT 2019-09-30 02:02:52 Doctor Unassigned, [place] [facility] POCT URINALYSIS W/O SPECIFIC GRAVITY 2019-09-24 00:00:00 [facility] DSU PRE-OP 2019-09-16 05:01:00 Doctor Unass igned, [place] [facility] POCT URINALYSIS W/O SPECIFIC GRAVITY 2019-09-16 00:00:00 [facility] POCT URINALYSIS W/O SPECIFIC GRAVITY 2019-09-10 00:00:00 [facility] GLUCOSE 1 HOUR POST PRANDIAL 2019-09-03 15:15:00 [facility] COMP. METABOLIC PANEL (83867) 2019-09-03 15:15:00 [facility] CBC WITH DIFFERENTIAL 2019-09-03 15:15:00 [facility] HIV 1/2 AG-AB WITH REFLEX 2019-09-03 15:15:00 [facility] CONSENT/REFUSAL FOR DIAGNOSIS AND TREATMENT 2019-09-03 11:37:10 Doctor Unassigned, [place] [facility] URINALYSIS 2019-09-02 13:01[facility]INALYS[facility] W/O SPECIFIC GRAVITY 2019-08-27 00:00:00 [facility] TDAP (ADACEL) IMMUNIZATION 2019-08-05 19:29:41 [facility] POCT URINALYSIS W/O SPECIFIC GRAVITY 2019-06-10 00:00:00 [facility] EXTERNAL PROVIDER RECORDS 2019-05-20 06:01:00 Doctor Unassigned, [place] [facility] POCT URINALYSIS W/O SPECIFIC GRAVITY 2019-05-13 00:00:00 [facility] URINALYSIS 2019-05-10 07:50:00 Nessa Caballero [facility] HB ABO GROUPING 2019-05-10 06:34:00 Nessa Caballero [facility] AMYLASE 2019-05-10 06:31:[facility] 2019-05-10 06:31:00 Nessa Caballero [facility] BASIC METABOLIC PANEL (NA, K, CL, CO2, GLUCOSE, BUN, CREATININE, CA) 2019-05-10 06:31:00 Nessa Caballero [facility] CBC WITH DIFFERENTIAL 2019-05-10 06:31:00 Claudia Caballero [facility] Encounters Start Date/Time End Date/Time Encounter Type Admission Type Attending Clinicians Care Facility Care Department Encounter ID Source 2021-02-15 21:00:41 Outpatient P [facility] OG [id number] [facility] 2021-02-15 20:57:00 Outpatient P [facility] OG [id number] [facility] 2023-07-11 00:00:00 2023-07-11 00:00:00 Telephone AdMargaret ray [facility] 1.2.840.114 350.1.13.10 4.2.7.2.686 [id number] 134 [id number] [facility] 2023-07-10 15:15:00 2023-07-10 15:30:00 Director Sales Support Visit 2, Adc Lab Margaret Dove [facility] 1.840.114 350.1.13.10 4.2.7.2.686 [id number] [facility] 2023-07-10 14:00:00 2023-07-10 14:19:44 Outpatient R MARGARET DOVE [facility] [id number] [facility] 2023-07-10 14:00:00 2023-07-10 14:19:44 Office Visit Margaret Dove [facility] 1.840.114 350.1.13.10 4.2.7.2.686 [id number] [facility] 2022-12-11 09:00:00 2022-12-11 09:51:50 Outpatient R HAILEY WALL [facility] [id number] [facility] 2022-12-11 09:00:00 2022-12-11 09:51:50 Office Visit Hailey Wall [facility] 1..840.114 350.1.13.10 4.2.7.2.686 [id number] [facility] 2022-12-11 00:00:00 2022-12-11 00:00:00 Orders Only Doctor Unassigned, [place] [facility] 1.84.114 350.1.13.10 4.2.7.2.686 [id number] [facility] 2022-02-21 16:40:00 2022-02-21 18:19:25 Outpatient R MITCHELL JOSHUA [facility] [id number] [facility] 2022-02-21 16:40:00 2022-02-21 17:00:00 Urgent Care Mitchell Joshua Unknown, [facility]ending [facility] 1.2.840.114 350.1.13.10 4.2.7.2.686 [id number] [facility] 2022-02-21 00:00:00 2022-02-21 00:00:00 Orders Only Doctor Unassigned, [place] [facility] 1.840.114 350.1.13.10 4.2.7.2.686 [id number] [facility] 2021-11-13 11:00:00 2021-11-13 11:00:00 Outpatient Carolina DOVE [facility] [id number] [facility] 2019-10-29 16:30:00 2019-10-29 16:30:00 Outpatient R AVNI [facility] [id number] [facility] 2019-10-29 08:15:00 2019-10-29 08:15:00 Outpatient R AVNI [facility] [id number] [facility] 2019-10-15 15:15:58 2019-10-15 15:38:58 Nurse Visit Nurse, [facility] 1..840.114 350.1.13.10 4.2.7.2.686 [id number] 2019-10-15 15:15:58 2019-10-15 15:38:58 Nurse Visit Nurse, [facility], [facility] Building 1..840.114 350.1.13.10 4.2.7.2.686 [id number] [facility] 2019-10-15 15:00:00 2019-10-15 15:00:00 Outpatient R [facility] [id number] [facility] 2019-09-29 21:01:00 2019-10-02 13:42:00 Hospital Encounter Lynda Montesinos Vivian L [facility] 1.2.840.114 350.1.13.10 4.2.7.2.686 [id number] 2019-09-29 21:01:00 2019-10-02 13:42:00 Hospital Encounter Lynda Montesinos Vivian L ValerieJuan dan [facility] 1.2.840.114 350.1.13.10 4.2.7.2.686 [id number] [facility] 2019-10-01 14:30:00 2019-10-01 14:30:00 Outpatient R MARGARET DOVE [facility] [id number] [facility] 2019-09-30 13:45:00 2019-09-30 13:45:00 Outpatient R [facility] [id number] [facility] 2019-09-30 03:30:00 2019-09-30 07:15:00 Anesthesia Couch [facility] 1.2.840.114 350.1.13.10 4.2.7.2.686 [id number] [facility] 2019-09-30 03:30:00 2019-09-30 07:15:00 Anesthesia Couch [facility] 1.2.840.114 350.1.13.10 4.2.7.2.686 [id number] 2019-09-29 15:00:00 2019-09-29 15:00:00 Outpatient R [facility] [id number] [facility] 2019-09-29 00:00:00 2019-09-29 00:00:00 Orders Only Doctor Unassigned, [place] [facility] 1.2.840.114 350.1.13.10 4.2.7.2.686 [id number] [facility] 2019-09-29 00:00:00 2019-09-29 00:00:00 Orders Only Doctor Unassigned, [place] [facility] 1.2.840.114 350.1.13.10 4.2.7.2.686 [id number] 2019-09-28 00:00:00 2019-09-28 00:00:00 Telephone Tori Posada [facility] Profess[facility] nal Building 1.2.840.114 350.1.13.10 4.2.7.2.686 [id number] [facility] 2019-09-28 00:00:00 2019-09-28 00:00:00 Telephone Tori Posada [facility] Profjanetio nal Building 1.2.840.114 350.1.13.10 4.2.7.2.686 [id number] 2019-09-24 11:21:29 2019-09-24 12:13:36 Routine Visit Tori Posada [facility] Profess[facility] nal Building 1.2.840.114 350.1.13.10 4.2.7.2.686 [id number] [facility] 2019-09-24 11:21:29 2019-09-24 12:13:36 Routine Visit Tori Posada [place] [place] [facility] Building 1.2.840.114 350.1.13.10 4.2.7.2.686 [id number] 134 [id number] 2019-09-24 11:00:00 2019-09-24 11:00:00 Outpatient R TORI POSADA [facility] [id number] [facility] 2019-09-24 08:15:00 2019-09-24 08:15:00 Outpatient R TORI POSADA [facility] [id number] [facility] 2019-09-16 13:51:19 2019-09-16 14:42:13 Routine Visit Posada, Lucy [facility] Professio nal Building 1.2.840.114 350.1.13.10 4.2.7.2.686 [id number] [facility] 2019-09-16 13:51:19 2019-09-16 14:42:13 Routine Visit Tori Posada [facility] Building 1.2.840.114 350.1.13.10 4.2.7.2.686 [id number] 2019-09-16 13:45:00 2019-09-16 13:45:00 Outpatient R TORI POSADA [facility] [id number] [facility] 2019-09-16 00:00:00 2019-09-16 00:00:00 Orders Only Doctor Unassigned, [place] [facility] 1.2.840.114 350.1.13.10 4.2.7.2.686 [id number] [id number] [facility] 2019-09-16 00:00:00 2019-09-16 00:00:00 Orders Only Doctor Unassigned, [place] [facility] 1.2.840.114 350.1.13.10 4.2.7.2.686 [id number] 2019-09-10 11:36:25 2019-09-10 12:16:55 Routine Visit Tori Posada [facility] Building 1.2.840.114 350.1.13.10 4.2.7.2.686 [id number] 134 [id number] 2019-09-10 11:36:25 2019-09-10 12:16:55 Routine Visit Tori Posada [facility] Building 1.2.840.114 350.1.13.10 4.2.7.2.686 [id number] [facility] 2019-09-10 11:30:00 2019-09-10 11:30:00 Outpatient R TORI POSADA [facility] [id number] [facility] 2019-09-07 00:00:00 2019-09-07 00:00:00 Telephone Tori Posada [facility] Building 1.2.840.114 350.1.13.10 4.2.7.2.686 [id number] 2019-09-07 00:00:00 2019-09-07 00:00:00 Telephone Tori Posada [facility] Building 1.2.840.114 350.1.13.10 4.2.7.2.686 [id number] 134 [id number] [facility] 2019-09-03 08:30:33 2019-09-03 08:45:33 Director Sales Support Visit Pob, Adc Lab Main [facility] 1.2.840.114 350.1.13.10 4.2.7.2.686 [id number] 2019-09-03 08:30:33 2019-09-03 08:45:33 Director Sales Support Visit Pob, [facility] Main Tori Posada [facility] 1.2.840.114 350.1.13.10 4.2.7.2.686 [id number] [facility] 2019-09-03 06:53:00 2019-09-03 08:30:00 Hospital Encounter Malini [facility] 1.2.840.114 350.1.13.10 4.2.7.2.686 [id number] 2019-09-03 06:53:00 2019-09-03 08:30:00 Hospital Encounter Juan Nayak [facility] 1.2.840.114 350.1.13.10 4.2.7.2.686 [id number] [facility] 2019-09-03 06:37:00 2019-09-03 06:37:00 Outpatient P [facility] OG [id number] [facility] 2019-09-03 00:00:00 2019-09-03 00:00:00 Orders Only Doctor Unassigned, [place] [facility] 1.2.840.114 350.1.13.10 4.2.7.2.686 [id number] 2019-09-03 00:00:00 2019-09-03 00:00:00 Orders Only Doctor Unassigned, [place] [facility] 1.2.840.114 350.1.13.10 4.2.7.2.686 [id number] [facility] 2019-09-02 04:37:00 2019-09-02 11:05:00 Hospital Encounter Margaret Dove [facility] 1.2.840.114 350.1.13.10 4.2.7.2.686 [id number] 2019-09-02 04:37:00 2019-09-02 11:05:00 Hospital Encounter Margaret Dove [facility] 1.2.840.114 350.1.13.10 4.2.7.2.686 [id number] [facility] 2019-09-01 10:45:00 2019-09-01 10:45:00 Outpatient R [facility] [id number] [facility] 2019-08-27 15:39:56 2019-08-27 16:31:09 Routine Visit Joel [facility] Building 1.2.840.114 350.1.13.10 4.2.7.2.686 [id number] 2019-08-27 15:39:56 2019-08-27 16:31:09 [facility]ine [facility] 1.2.840.114 350.1.13.10 4.2.7.2.686 [id number] [facility] 2019-08-27 15:30:00 2019-08-27 15:30:00 Outpatient R TORI POSADA [facility] [id number] [facility] 2019-08-26 09:30:00 2019-08-26 09:30:00 Outpatient R TORI POSADA [facility] [id number] [facility] 2019-08-12 00:00:00 2019-08-12 00:00:00 Telephone Tori Posada [facility] 1.2.840.114 350.1.13.10 4.2.7.2.686 [id number] 134 [id number] 2019-08-12 00:00:00 2019-08-12 00:00:00 Telephone [facility] [place] 1.2.840.114 350.1.13.10 4.2.7.2.686 [id number] [facility] 2019-08-11 00:00:00 2019-08-11 00:00:00 Telephone Tori Posada [facility] Professio nal Building 1.2.840.114 350.1.13.10 4.2.7.2.686 [id number] 134 [id number] 2019-08-11 00:00:00 2019-08-11 00:00:00 Telephone Tori Posada [facility] Professio nal Building 1.2.840.114 350.1.13.10 [id number] [facility] 2019-08-09 09:00:00 2019-08-09 09:00:00 Outpatient R [facility] [id number] [facility] 2019-08-06 09:45:00 2019-08-06 09:45:00 Outpatient R [facility] [id number] [facility] 2019-08-05 08:19:46 2019-08-05 14:31:06 Routine Visit Tori Posada Formerly [facility] Professio nal Building 1.2.840.114 350.1.13.10 4.2.7.2.686 [id number] 134 [id number] 2019-08-05 08:19:46 2019-08-05 14:31:06 Routine Visit Tori Posada [facility] Ayanna Professio nal Building 1.2.840.114 350.1.13.10 4.2.7.2.686 [id number] 134 [id number] [facility] 2019-08-05 08:30:00 2019-08-05 08:30:00 Outpatient R TORI POSADA [facility] [id number] [facility] 2019-07-11 00:00:00 2019-07-11 00:00:00 Telephone Tori Posada [facility] nal Building 1.2.840.114 350.1.13.10 4.2.7.2.686 [id number] 134 [id number] [facility] 2019-07-08 09:33:18 2019-07-08 10:41:31 Routine Visit Tori Posada [facility] nal Building 1.2.840.114 350.1.13.10 4.2.7.2.686 [id number] 134 [id number] [facility] 2019-07-08 09:30:00 2019-07-08 09:30:00 Outpatient R TORI POSADA [facility] [id number] [facility] 2019-06-29 00:00:00 2019-06-29 00:00:00 Telephone Tori Posada [facility] nal Building 1.2.840.114 350.1.13.10 4.2.7.2.686 [id number] 134 [id number] [facility] 2019-06-25 14:52:21 2019-06-25 15:23:32 Director Sales Support Visit Ultrasound, Adc Guerita Fraga [facility] nal Building 1.2.840.114 350.1.13.10 4.2.7.2.686 [id number] 134 [id number] [facility] 2019-06-25 14:45:00 2019-06-25 14:45:00 Outpatient P GUERITA TIWARI [facility] [id number] [facility] 2019-06-10 08:53:47 2019-06-10 21:10:01 Routine Visit Tori Posada [facility] 1.2.840.114 350.1.13.10 4.2.7.2.686 [id number] 134 [id number] [facility] 2019-06-10 00:00:00 2019-06-10 00:00:00 Letter (Out) Tori Posada [facility] 1.2.840.114 350.1.13.10 4.2.7.2.686 [id number] 134 [id number] [facility] 2019-05-20 00:00:00 2019-05-20 00:00:00 Orders Only Doctor Unassigned, [place] [facility] 1.2.840.114 350.1.13.10 4.2.7.2.686 [id number] [facility] 2019-05-13 11:11:24 2019-05-13 12:06:52 Routine Visit Tori Posada [facility] 1.2.840.114 350.1.13.10 4.2.7.2.686 [id number] 134 [id number] [facility] 2019-05-13 00:00:00 2019-05-13 00:00:00 Letter (Out) Tori Posada [facility] 1.2.840.114 350.1.13.10 4.2.7.2.686 [id number] 134 [id number] [facility] 2019-05-09 23:25:00 2019-05-10 02:43:00 Hospital Encounter Milagros Peraltagini [facility] 1.840.114 350.1.13.10 4.2.7.2.686 [id number] [facility] 2019-05-09 00:00:00 2019-05-09 00:00:00 Telephone Tori Posada [facility] 1.2840.114 350.1.13.10 4.2.7.2.686 [id number] 134 [id number] [facility] Results Test Description Test Time Test Comments Results Result Co mments Source [facility] [id number] 19:19:00* Test Item Value Reference Range Interpretation Comme nts POCT PREG (test code = 1605) Negative On board controls acceptable with C Line (test code = 3574) Yes POCT PREG LOT # (test code = 3575) POCT PREG TEST DATE ( test code = 3576) [facility] [id number] 14:40:00* Test Item Value Reference Range Interpretation Comme nts POCT PREG (test code = 1605) Negative On board controls acceptable with C Line (test code = 3574) Yes POCT PREG LOT # (test code = 3575) [id number] POCT PREG TEST DATE ( test code = 3576) [id number] [facility] [id number] 14:40:00* Test Item Value Reference Range Interpretation Comme nts POCT PREG (test code = 1605) Negative On board controls acceptable with C Line (test code = 3574) Yes POCT PREG LOT # (test code = 3575) [id number] POCT PREG TEST DATE ( test code = 3576) [id number] [facility] [id number] 17:07:00* Test Item Value Reference Range Interpretation Comme nts WBC (test code = 6690-2) See_Comment H [Automated message] The system which generated this result transmitted reference range: 4.50 - 13.50 10*3/?L. The reference range was not used to interpret this result as normal/abnormal. RBC (test code = 789-8) See_Comment L [Automated message] The system which generated this result transmitted reference range: 4.10 - 5.10 10*6/?L. The reference range was not used to interpret this result as normal/abnormal. HGB (test code = 718-7) 8.9 g/dL 12-16 L HCT (test code = 4544-3) 26.9 % 36-45 L MCV (test code = 787-2) 91.5 fL 78-95 MCH (test code = 785-6) 30.3 pg 26-32 MCHC (test code = 786-4) 33.1 g/dL 32-36 RDW-SD (test code = 10063-1) 44.3 fL 38.5-49 RDW-CV (test code = 788-0) 13.4 % 11.5-14 PLT (test code = 777-3) See_Comment [Automated message] The system which generated this result transmitted reference range: 135 - 361 10*3/?L. The reference range was not used to interpret this result as normal/abnormal. MPV (test code = 54435-7) 9.7 fL 9.4-13.3 NRBC/100 WBC (test code = 2054838255) See_Comment [Automated message] The system which generated this result transmitted reference range: 0.0 - 10.0 /100 WBCs. The reference range was not used to interpret this result as normal/abnormal. NRBC x10^3 (test code = 8883073452) <0.01 See_Comment [Automated message] The system which generated this result transmitted reference range: 10*3/?L. The reference range was not used to interpret this result as normal/abnormal. SEG % (test code = 87919-1) 60 % 33-76 BAND % (test code = 63295-8) 30 % 0-1 H META % (test code = 95071-9) 1 % See_Comment H [Automated message] The system which generated this result transmitted reference range: <=0. The reference range was not used to interpret this result as normal/abnormal. MYELO % (test code = 89604-9) 1 % See_Comment H [Automated message] The system which generated this result transmitted reference range: <=0. The reference range was not used to interpret this result as normal/abnormal. LYMPH % (test code = 42834-8) 4 % 15-55 L MONO % (test code = 70533-5) 3 % 0-4 EOS % (test code = 30425-6) 1 % 0-3 ANC (test code = 4212064226) 41.58 10*3/uL 1.5-10.3 H Lab Interpretation (test code = 58346-2) Abnormal [facility] METABOLIC PANEL (NA, K, CL, CO2, GLUCOSE, BUN, CREATININE, CA)2019-10-01 11:12:00* Test Item Value Reference Range Interpretation Comme nts NA (test code = 1162755829) 136 mmol/L 135-145 K (test code = 2194944224) 5.5 mmol/L 3.5-5 H CL (test code = 1491618697) 109 mmol/L 98-108 H CO2 TOTAL (test code = 1045174577) 25 mmol/L 23-31 AGAP (test code = 8944772079) 2-16 BUN (test code = 5041622463) 12 mg/dL 7-23 GLUCOSE (test code = 6784637296) 108 mg/dL 70-110 CREATININE (test code = 8968035879) 0.68 mg/dL 0.5-1.04 CALCIUM (test code = 6404654972) 8.7 mg/dL 8.6-10.6 ANIA (test code = ANIA) Association of [...] or abnormalities in imaging tests). Lab Interpretation (test code = 49035-2) [facility]normal [facility] - [id number] 06:58:00* Test Item Value Reference Range Interpretation Comme nts RPR (Qualitative) (test code = 43312-1) Nonreactive Nonreactive Lab Interpretation (test cod e = 16424-6) Normal [facility] / [id number] 20:14:00* Test Item Value Reference Range Interpretation Comme nts WBC (test code = 6690-2) See_Comment H [Automated message] The system which generated this result transmitted reference range: 4.50 - 13.50 10*3/?L. The reference range was not used to interpret this result as normal/abnormal. RBC (test code = 789-8) See_Comment L [Automated message] The system which generated this result transmitted reference range: 4.10 - 5.10 10*6/?L. The reference range was not used to interpret this result as normal/abnormal. HGB (test code = 718-7) 9.2 g/dL 12-16 L HCT (test code = 4544-3) 27.5 % 36-45 L MCH (test code = 785-6) 30.1 pg 26-32 MCV (test code = 787-2) 89.9 fL 78-95 MCHC (test code = 786-4) 33.5 g/dL 32-36 PLT (test code = 777-3) See_Comment [Automated message] The system which generated this result transmitted reference range: 135 - 361 10*3/?L. The reference range was not used to interpret this result as normal/abnormal. MPV (test code = 43275-1) 9.5 fL 9.4-13.3 RDW-CV (test code = 788-0) 13.2 % 11.5-14 RDW-SD (test code = 60146-8) 42.9 fL 38.5-49 NRBC x10^3 (test code = 2094766174) <0.01 See_Comment [Automated [employer]] The system which generated this result transmitted reference range: 10*3/?L. The reference range was not used to interpret this result as normal/abnormal. NRBC/100 WBC (test code = 7401821345) See_Comment [Automated [employer]] The system which generated this result transmitted reference range: 0.0 - 10.0 /100 WBCs. The reference range was not used to interpret this result as normal/abnormal. IPF % (test code = 6398649923) Lab Interpretation (test code = 72129-6) Abnormal [facility] METABOLIC PANEL (NA, K, CL, CO2, GLUCOSE, BUN, CREATININE, CA)2019-09-30 20:09:00* Test Item Value Reference Range Interpretation Comme nts NA (test code = 1034261377) 130 mmol/L 135-145 L K (test code = 5505242403) 3.9 mmol/L 3.5-5 CL (test code = 7750846246) 106 mmol/L 98-108 CO2 TOTAL (test code = 4645773859) 18 mmol/L 23-31 L AGAP (test code = 2569943406) 2-16 BUN (test code = 4553855773) 16 mg/dL 7-23 GLUCOSE (test code = 4222965127) 100 mg/dL 70-110 CREATININE (test code = 7101973716) 0.96 mg/dL 0.5-1.04 CALCIUM (test code = 8949934328) 8.1 mg/dL 8.6-10.6 L ANIA (test code = ANIA) Association of [...] or abnormalities in imaging tests). Lab Interpretation (test code = 99675-8) [facility]normal [facility] 14:05:00* Test Item Value Reference Range Interpretation Comme nts HGB (test code = 718-7) 9.4 g/dL 12-16 L Lab Interpretation (test cod e = 96698-1) Abnormal [facility]MATOCRIT2020-06-11 14:05:00* Test Item Value Reference Range Interpretation Comme nts HCT (test code = 4544-3) 28.9 % 36-45 L Lab Interpretation (test cod e = 34392-0) Abnormal [facility] HospitalPrepare Packed RBC (in units)2019-09-30 13:54:27* Test Item Value Reference Range Interpretation Comme nts Unit Blood Type (test code = 4410) O Pos ISBT Blood Type Code (test code = 824878) Unit Number (test code = 4411) [id number] Blood Expiration Date & Time (test code = 338930) Status Information (test code = 4412) Issued Product Identification (test code = 4413) Red Blood Cells Product Code (test code = 4414) [id number] Performed at [facility] B Laboratory Services - [facility] Blood [address] [place] [address]Lrcj Free: [phone] No. [id number] [facility] HospitalRHO (D) IMMUNE [id number] 12:52:34* Test Item Value Reference Range Interpretation Comme nts RHIG CANDIDATE? (test code = 5055) No- see comment Patient is not a candidate for RhIg- Patient is Rh Positive.Performed at [facility] Laboratory Services - [facility] Blood [address] [place], [place] [id number] Free: [phone] No. [id number] [facility] HospitalHEPATITIS B SURFACE [id number] 12:24:00* Test Item Value Reference Range Interpretation Comme nts HBsAB (test code = 9106480931) Negative HBsAb Semi-Quantitative (test code = 7386252063) mIU/mL ANIA (test code = ANIA) Interpretation: ?Hepatitis B Surface Antibody ? Negative - Patient is considered to be not immune to infection with HBV. ? ? Positive - Anti-HBs detected at greater than or equal to 12 mIU/mL. ?Patient is considered to be immune to infection with HBV. ? [facility] HospitalaPTT2020-06-11 12:16:00* Test Item Value Reference Range Interpretation Comme nts APTT Patient (test code = 3173-2) See_Comment H [Automated message] The system which generated this result transmitted reference range: 23 - 38 Seconds. The reference range was not used to interpret this result as normal/abnormal. ANIA (test code = ANIA) The [facility] patient population mean normal value for aPTT is 30 seconds. Lab Interpretation (test code = 86863-3) Abnormal [facility]MATOCRIT2020-06-11 12:11:00* Test Item Value Reference Range Interpretation Comme nts HCT (test code = 4544-3) 34.7 % 36-45 L Lab Interpretation (test cod e = 47372-2) Abnormal [facility]MOGLOBIN2020-06-11 12:11:00* Test Item Value Reference Range Interpretation Comme nts HGB (test code = 718-7) 11.4 g/dL 12-16 L Lab Interpretation (test cod e = 25214-6) Abnormal [facility] HospitalVenous Cord [id number] 10:22:00* Test Item Value Reference Range Interpretation Comme nts VENOUS BASE EXCESS, CORD (test code = 7060461955) mEq/L VENOUS PH, CORD (test code = 3606857347) 7.25-7.45 L VENOUS PC02, CORD (test code = 6226879756) See_Comment H [Automated me ssage] The system which generated this result transmitted reference range: 27 - 49 mmHg. The reference range was not used to interpret this result as normal/abnormal. VENOUS PO2, CORD (test code = 1412227222) See_Comment L [Automated me ssage] The system which generated this result transmitted reference range: 17 - 41 mmHg. The reference range was not used to interpret this result as normal/abnormal. VENOUS BICARBONATE, CORD (test code = 8472474338) See_Comment [Automa hanny message] The system which generated this result transmitted reference range: 12 - 29 mEq/L. The reference range was not used to interpret this result as normal/abnormal. Lab Interpretation (test code = 10980-9) Abnormal [facility] Hospital[facility] Neuraxial [id number] 09:05:33 Laura Couch MD ? ? 09/30/2019 ?4:07 AM Central Neuraxial Block Performed by: Laura Couch MDAuthorized by: Laura Couch MD Start Time: ?09/30/2019 3:30 AMEnd Time: ?09/30/2019 3:45 AMReasonfor Block: ?OB request, Patient request and Labor analgesiaStaff: ?Anesthesiologist: ?Laura Couch MD ?Performed by: ?Anesthesiologist patient identified, risks and benefits explained, timeout per formed and pre-op evaluationEpidural: ?Patient Position: ?Sitting ?Prep: Betadine ? ?Monitoring: ?Heart rate, continuous pulse ox, heart rate / toco and NIBP ?Location: ?Lumbar (1-5) ?Lumbar: ?L3-L4 ?Approach: ?MidlineInjection Technique: ?GERTRUDE airNeedle and Epidural Catheter: ?Epidural Kit: ?[place]a [place] (BD) ?Needle Type: ?Tuohy ?Needle Length: ?3.5 in (8.89 cm) ?Needle Insertion Depth: ?6Catheter Type: ?MultiportCatheter Size: ?19 GCatheter at Skin Depth: ?11Test Dose: ?No test doseand lidocaine 1.5% with epinephrine 1-to-200,000Assessment: ?Sensory Level: ?Below T10 [facility] HospitalPROTEIN CREAT RATIO URINE [id number] 06:58:00* Test Item Value Reference Range Interpretation Comme nts T. PROT U (test code = 2888-6) 99 mg/dL CREAT U (test code = 0918227875) 114.7 mg/dL Protein/Creatinine Ratio Uri ne (test code = 2838733103) 0.0-2.0 [facility] HospitalCOVID-19 (ID NOW RAPID TESTING)2019-09-30 06:57:00* Test Item Value Reference Range Interpretation Comme nts SARS-CoV-2 Rapid ID NOW (test code = 65864-6) Not Detected Not Detected ANIA (test code = ANIA) ID NOW COVID-19 As say is an isothermal nucleic acid amplification test intended for the qualitative detection of nucleic acid from SARS-CoV-2 viral RNA in nasopharyngeal (BALLET PROFESSOR) specimens. It is used under Emergency Use [...] patient testing if clinically indicated. Lab Interpretation (test code = 01207-4) Normal [facility] HospitalHIV 1/2 AG-AB WITH [id number] 05:52:00* Test Item Value Reference Range Interpretation Comme nts HIV Semi-quantitative (test code = 26526-1) Negative Negative ANIA (test code = ANIA) Non-reactive for HIV-1 antigen and HIV-1/HIV-2 antibodies. ?No laboratory evidence of HIV infection. ?Repeat in 2-4 weeks if acute HIV infection is suspected. [facility] WITH [id number] 05:48:00* Test Item Value Reference Range Interpretation Comme nts WBC (test code = 6690-2) See_Comment H [Automated message] The system which generated this result transmitted reference range: 4.50 - 13.50 10*3/?L. The reference range was not used to interpret this result as normal/abnormal. RBC (test code = 789-8) See_Comment [Automated message] The system which generated this result transmitted reference range: 4.10 - 5.10 10*6/?L. The reference range was not used to interpret this result as normal/abnormal. HGB (test code = 718-7) 13.4 g/dL 12-16 HCT (test code = 4544-3) 41.0 % 36-45 MCV (test code = 787-2) 88.6 fL 78-95 MCH (test code = 785-6) 28.9 pg 26-32 MCHC (test code = 786-4) 32.7 g/dL 32-36 RDW-SD (test code = 61349-9) 40.7 fL 38.5-49 RDW-CV (test code = 788-0) 12.6 % 11.5-14 PLT (test code = 777-3) See_Comment H [Automated message] The system which generated this result transmitted reference range: 135 - 361 10*3/?L. The reference range was not used to interpret this result as normal/abnormal. MPV (test code = 10966-1) 9.5 fL 9.4-13.3 NRBC/100 WBC (test code = 1117743606) See_Comment [Automated message] The system which generated this result transmitted reference range: 0.0 - 10.0 /100 WBCs. The reference range was not used to interpret this result as normal/abnormal. NRBC x10^3 (test code = 1190671132) <0.01 See_Comment [Automated message] The system which generated this result transmitted reference range: 10*3/?L. The reference range was not used to interpret this result as normal/abnormal. GRAN MAT (NEUT) % (test code = 770-8) 88.9 % IMM GRAN % (test code = 2931009808) 1.30 % LYMPH % (test code = 736-9) 5.7 % MONO % (test code = 5905-5) 3.8 % EOS % (test code = 713-8) 0.2 % BASO % (test code = 706-2) 0.1 % GRAN MAT x10^3(ANC) (test code = 9690917881) 22.58 10*3/uL 1.5-10.3 H IMM GRAN x10^3 (test code = 7060431927) 0.32 10*3/uL 0-0.06 H LYMPH x10^3 (test code = 731-0) 1.45 10*3/uL 0.7-7.4 MONO x10^3 (test code = 742-7) 0.96 10*3/uL 0-0.5 H EOS x10^3 (test code = 711-2) 0.04 10*3/uL 0-0.4 BASO x10^3 (test code = 704-7) 0.03 10*3/uL 0-0.1 Lab Interpretation (test code = 32294-3) Abnormal [facility] HospitalType and Screen - ONCE [id number] 05:38:07* Test Item Value Reference Range Interpretation Comme nts ABO & RH (test code = 20) O Positive Performed at [facility] Laboratory Services - [facility] Blood [address] [place], [place] [address]Toll Free: [phone] No. [id number] IAT (test code = 1185) Negative Performed at [facility] Laboratory [facility] - [facility] Blood [place] [address]Toll Free: [phone] No. [id number] [facility] HospitalCOMP. METABOLIC PANEL (64117)2019-09-30 05:12:00* Test Item Value Reference Range Interpretation Comme nts NA (test code = 7258286288) 135 mmol/L 135-145 K (test code = 0375115261) 5.4 mmol/L 3.5-5 H CL (test code = 7643421030) 106 mmol/L 98-108 CO2 TOTAL (test code = 3638998629) 18 mmol/L 23-31 L AGAP (test code = 3168485223) 2-16 BUN (test code = 9265817818) 13 mg/dL 7-23 GLUCOSE (test code = 0017410316) 85 mg/dL 70-110 CREATININE (test code = 5446766837) 0.61 mg/dL 0.5-1.04 TOTAL BILI (test code = 9963846584) 0.4 mg/dL 0.1-1.1 CALCIUM (test code = 7940816162) 10.3 mg/dL 8.6-10.6 T PROTEIN (test code = 0528680798) 7.7 g/dL 6.3-8.2 ALBUMIN (test code = 9773126059) 4.0 g/dL 3.5-5 ALK PHOS (test code = 8843255923) 263 U/L 34-122 H ALTv (test code = 1742-6) 22 U/L 5-35 AST(SGOT) (test code = 3131645442) 29 U/L 13-40 ANIA (test code = ANIA) Association of [...] or abnormalities in imaging tests). Lab Interpretation (test code = 01397-5) Abnormal [facility] HospitalURIC [id number] 05:12:00* Test Item Value Reference Range Interpretation Comme nts URIC ACID (test code = 3031607182) 8.0 mg/dL 2.9-6 H Lab Interpretation (test cod e = 30448-3) Abnormal [facility] URINALYSIS W/O SPECIFIC [id number] 16:58:00* Test Item Value Reference Range Interpretation Comme nts POCT PH U (test code = 3254) n/a 5-8 POCT U LEUK EST (test code = 3263) n/a Negative - N egative POCT U NIT (test code = 3262) n/a Negative - Negati ve POCT U PROT (test code = 3259) neg Negative - Negat gokul POCT U GLU (test code = 3256) neg Negative - Negati ve POCT U KETONE (test code = 3258) n/a Negative - Neg ative POCT U BLD (test code = 3257) n/a Negative - Negati ve Lab Interpretation (test cod e = 89972-8) Normal [facility] URINALYSIS W/O SPECIFIC [id number] 19:13:00* Test Item Value Reference Range Interpretation Comme nts POCT PH U (test code = 3254) n/a 5-8 POCT U LEUK EST (test code = 3263) n/a Negative - N egative POCT U NIT (test code = 3262) n/a Negative - Negati ve POCT U PROT (test code = 3259) trace Negative - Negat gokul POCT U GLU (test code = 3256) neg Negative - Negati ve POCT U KETONE (test code = 3258) n/a Negative - Neg ative POCT U BLD (test code = 3257) n/a Negative - Negati ve Lab Interpretation (test cod e = 26133-1) Normal [facility] HospitalPOCT URINALYSIS W/O SPECIFIC [id number] 16:53:00* Test Item Value Reference Range Interpretation Comme nts POCT PH U (test code = 3254) n/a 5-8 POCT U LEUK EST (test code = 3263) n/a Negative - N egative POCT U NIT (test code = 3262) n/a Negative - Negati ve POCT U PROT (test code = 3259) neg Negative - Negat gokul POCT U GLU (test code = 3256) neg Negative - Negati ve POCT U KETONE (test code = 3258) n/a Negative - Neg ative POCT U BLD (test code = 3257) n/a Negative - Negati ve Lab Interpretation (test cod e = 53078-1) Normal [facility]HIV [facility]/2 AG-AB WITH [id number] 16:44:00* Test Item Value Reference Range Interpretation Comme nts HIV Semi-quantitative (test code = 72901-4) Negative Negative ANIA (test code = ANIA) Non-reactive for HIV-1 antigen and HIV-1/HIV-2 antibodies. ?No laboratory evidence of HIV infection. ?Repeat in 2-4 weeks if acute HIV infection is suspected. [facility]. METABOLIC PANEL (42415)2019-09-03 16:07:00* Test Item Value Reference Range Interpretation Comme nts NA (test code = 6743029495) 136 mmol/L 135-145 K (test code = 8066751653) 4.4 mmol/L 3.5-5 CL (test code = 8937163584) 105 mmol/L 98-108 CO2 TOTAL (test code = 1367251885) 21 mmol/L 23-31 L AGAP (test code = 5528360683) 2-16 BUN (test code = 8616054116) 4 mg/dL 7-23 L GLUCOSE (test code = 2550380964) 111 mg/dL 70-110 H CREATININE (test code = 6380002195) 0.48 mg/dL 0.5-1.04 L TOTAL BILI (test code = 8141100613) 0.3 mg/dL 0.1-1.1 CALCIUM (test code = 9999565445) 9.6 mg/dL 8.6-10.6 T PROTEIN (test code = 1981196058) 7.0 g/dL 6.3-8.2 ALBUMIN (test code = 6384890960) 3.7 g/dL 3.5-5 ALK PHOS (test code = 6164166048) 176 U/L 34-122 H ALTv (test code = 1742-6) 18 U/L 5-35 AST(SGOT) (test code = 3299106413) 26 U/L 13-40 ANIA (test code = ANIA) Association of [...] or abnormalities in imaging tests). Lab Interpretation (test code = 68363-6) Abnormal [facility] HospitalGLUCOSE 1 HOUR POST [id number] 16:06:00* Test Item Value Reference Range Interpretation Comme nts GLUC 1 HR (test code = 6162200408) 113 mg/dL 120-170 L Lab Interpretation (test cod e = 13569-0) Abnormal [facility] WITH [id number] 15:17:00* Test Item Value Reference Range Interpretation Comme nts WBC (test code = 6690-2) See_Comment H [Automated message] The system which generated this result transmitted reference range: 4.50 - 13.50 10*3/?L. The reference range was not used to interpret this result as normal/abnormal. RBC (test code = 789-8) See_Comment [Automated message] The system which generated this result transmitted reference range: 4.10 - 5.10 10*6/?L. The reference range was not used to interpret this result as normal/abnormal. HGB (test code = 718-7) 12.4 g/dL 12-16 HCT (test code = 4544-3) 37.0 % 36-45 MCV (test code = 787-2) 88.7 fL 78-95 MCH (test code = 785-6) 29.7 pg 26-32 MCHC (test code = 786-4) 33.5 g/dL 32-36 RDW-SD (test code = 60645-5) 41.2 fL 38.5-49 RDW-CV (test code = 788-0) 12.7 % 11.5-14 PLT (test code = 777-3) See_Comment H [Automated message] The system which generated this result transmitted reference range: 135 - 361 10*3/?L. The reference range was not used to interpret this result as normal/abnormal. MPV (test code = 06156-2) 9.4 fL 9.4-13.3 NRBC/100 WBC (test code = 1728987729) See_Comment [Automated message] The system which generated this result transmitted reference range: 0.0 - 10.0 /100 WBCs. The reference range was not used to interpret this result as normal/abnormal. NRBC x10^3 (test code = 4712122222) <0.01 See_Comment [Automated message] The system which generated this result transmitted reference range: 10*3/?L. The reference range was not used to interpret this result as normal/abnormal. GRAN MAT (NEUT) % (test code = 770-8) 85.1 % IMM GRAN % (test code = 8963460423) 0.40 % LYMPH % (test code = 736-9) 8.0 % MONO % (test code = 5905-5) 6.1 % EOS % (test code = 713-8) 0.3 % BASO % (test code = 706-2) 0.1 % GRAN MAT x10^3(ANC) (test code = 4975195476) 11.51 10*3/uL 1.5-10.3 H IMM GRAN x10^3 (test code = 7357098033) 0.06 10*3/uL 0-0.06 LYMPH x10^3 (test code = 731-0) 1.08 10*3/uL 0.7-7.4 MONO x10^3 (test code = 742-7) 0.83 10*3/uL 0-0.5 H EOS x10^3 (test code = 711-2) 0.04 10*3/uL 0-0.4 BASO x10^3 (test code = 704-7) <0.03 0-0.1 Lab Interpretation (test code = 45674-3) [facility] Test Item Value Reference Range Interpretation Comme nts APPEARANCE (test code = 2816957454) Hazy Clear A COLOR (test code = 9072093695) Yellow Yellow PH (test code = 6505336717) 4.8-8.0 SP GRAVITY (test code = 5696169101) 1.003-1.030 GLU U QUAL (test code = 7858372856) Normal Normal BLOOD (test code = 8125553342) 1+ Negative A KETONES (test code = 7204739648) Negative Negative PROTEIN (test code = 2887-8) Negative Negative UROBILIN (test code = 9487330513) Normal Normal BILIRUBIN (test code = 2033430973) Negative Negative NITRITE (test code = 1569714246) Negative Negative LEUK MYRNA (test code = 9716948866) 25/uL Negative A RBC/HPF (test code = 1903581669) See_Comment [Automated messa ge] The system which generated this result transmitted reference range: 0 - 3 HPF. The reference range was not used to interpret this result as normal/abnormal. WBC/HPF (test code = 8835698140) See_Comment [Automated messa ge] The system which generated this result transmitted reference range: 0 - 5 HPF. The reference range was not used to interpret this result as normal/abnormal. BACTERIA (test code = 0775457645) Few Negative A MUCOUS (test code = 5615716938) Slight Negative LPF A SQ EPITH (test code = 2436767454) HPF Lab Interpretation (test code = 93217-7) Abnormal [facility] URINALYSIS W/O SPECIFIC [id number] 09:00:00* Test Item Value Reference Range Interpretation Comme nts POCT PH U (test code = 3254) n/a 5-8 POCT U LEUK EST (test code = 3263) n/a Negative - N egative POCT U NIT (test code = 3262) n/a Negative - Negati ve POCT U PROT (test code = 3259) neg Negative - Negat gokul POCT U GLU (test code = 3256) neg Negative - Negati ve POCT U KETONE (test code = 3258) n/a Negative - Neg ative POCT U BLD (test code = 3257) n/a Negative - Negati ve Lab Interpretation (test cod e = 17397-6) Normal [facility] URINALYSIS W/O SPECIFIC [id number] 18:20:00* Test Item Value Reference Range Interpretation Comme nts POCT PH U (test code = 3254) n/a 5-8 POCT U LEUK EST (test code = 3263) n/a Negative - N egative POCT U NIT (test code = 3262) n/a Negative - Negati ve POCT U PROT (test code = 3259) neg Negative - Negat gokul POCT U GLU (test code = 3256) neg Negative - Negati ve POCT U KETONE (test code = 3258) n/a Negative - Neg ative POCT U BLD (test code = 3257) n/a Negative - Negati ve Lab Interpretation (test cod e = 64319-9) [facility] [id number] 18:20:00* Test Item Value Reference Range Interpretation Comme nts POCT PH U (test code = 3254) n/a 5-8 POCT U LEUK EST (test code = 3263) n/a Negative - N egative POCT U NIT (test code = 3262) n/a Negative - Negati ve POCT U PROT (test code = 3259) neg Negative - Negat gokul POCT U GLU (test code = 3256) neg Negative - Negati ve POCT U KETONE (test code = 3258) n/a Negative - Neg ative POCT U BLD (test code = 3257) n/a Negative - Negati ve Lab Interpretation (test cod e = 55547-2) [facility] URINALYSIS W/O SPECIFIC [id number] 18:20:00* Test Item Value Reference Range Interpretation Comme nts POCT PH U (test code = 3254) n/a 5-8 POCT U LEUK EST (test code = 3263) n/a Negative - N egative POCT U NIT (test code = 3262) n/a Negative - Negati ve POCT U PROT (test code = 3259) neg Negative - Negat gokul POCT U GLU (test code = 3256) neg Negative - Negati ve POCT U KETONE (test code = 3258) n/a Negative - Neg ative POCT U BLD (test code = 3257) n/a Negative - Negati ve Lab Interpretation (test cod e = 37930-9) [facility] URINALYSIS W/O SPECIFIC [id number] 18:20:00* Test Item Value Reference Range Interpretation Comme nts POCT PH U (test code = 3254) n/a 5-8 POCT U LEUK EST (test code = 3263) n/a Negative - N egative POCT U NIT (test code = 3262) n/a Negative - Negati ve POCT U PROT (test code = 3259) neg Negative - Negat gokul POCT U GLU (test code = 3256) neg Negative - Negati ve POCT U KETONE (test code = 3258) n/a Negative - Neg ative POCT U BLD (test code = 3257) n/a Negative - Negati ve Lab Interpretation (test cod e = 34645-5) [facility] [id number] 17:56:00* Test Item Value Reference Range Interpretation Comme nts POCT PH U (test code = 3254) n/a 5-8 POCT U LEUK EST (test code = 3263) n/a Negative - N egative POCT U NIT (test code = 3262) n/a Negative - Negati ve POCT U PROT (test code = 3259) neg Negative - Negat gokul POCT U GLU (test code = 3256) neg Negative - Negati ve POCT U KETONE (test code = 3258) n/a Negative - Neg ative POCT U BLD (test code = 3257) n/a Negative - Negati ve Lab Interpretation (test cod e = 55886-1) [facility] 08:08:00* Test Item Value Reference Range Interpretation Comme nts APPEARANCE (test code = 0136005720) Hazy Clear A COLOR (test code = 4744990377) Yellow Yellow PH (test code = 7331957733) 4.8-8.0 SP GRAVITY (test code = 3270578244) 1.003-1.030 GLU U QUAL (test code = 4150949086) Normal Normal BLOOD (test code = 5842424731) 2+ Negative A KETONES (test code = 8569243135) 20 mg/dL Negative A PROTEIN (test code = 2887-8) 30 mg/dL Negative A UROBILIN (test code = 4179003934) Normal Normal BILIRUBIN (test code = 1972623128) Negative Negative NITRITE (test code = 8025928587) Positive Negative A LEUK MYRNA (test code = 5870906701) 250/uL Negative A RBC/HPF (test code = 3991755578) See_Comment H [Automated messa ge] The system which generated this result transmitted reference range: 0 - 3 HPF. The reference range was not used to interpret this result as normal/abnormal. WBC/HPF (test code = 0562939709) >182 See_Comment H [Automated messa ge] The system which generated this result transmitted reference range: 0 - 5 HPF. The reference range was not used to interpret this result as normal/abnormal. BACTERIA (test code = 1205690089) Few Negative A MUCOUS (test code = 9389451673) Slight Negative LPF A SQ EPITH (test code = 1880659506) See_Comment [Automated messa ge] The system which generated this result transmitted reference range: <=2 HPF. The reference range was not used to interpret this result as normal/abnormal. Lab Interpretation (test code = 95923-4) [facility] - ONCE [id number] 07:32:17* Test Item Value Reference Range Interpretation Comme nts ABO & RH (test code = 20) O POSITIVE Performed at [facility] Laboratory Services [facility] Blood [address] Free: [phone] No. [id number] IAT (test code = 1185) Negative Performed at [facility] Laboratory [facility] Blood [address] Free: [phone] No. [id number] [facility] (NA, K, CL, CO2, GLUCOSE, BUN, CREATININE, CA)2019-05-10 07:32:00* Test Item Value Reference Range Interpretation Comme nts NA (test code = 6376115918) 135 mmol/L 135-145 K (test code = 4011942851) 3.7 mmol/L 3.5-5 CL (test code = 8667237855) 104 mmol/L 98-108 CO2 TOTAL (test code = 2751074102) 20 mmol/L 23-31 L AGAP (test code = 5618294888) 2-16 BUN (test code = 2086290101) 3 mg/dL 7-23 L GLUCOSE (test code = 7347240579) 98 mg/dL 70-110 CREATININE (test code = 5522318752) 0.41 mg/dL 0.5-1.04 L CALCIUM (test code = 0752983503) 8.9 mg/dL 8.6-10.6 ANIA (test code = ANIA) Association of [...] or abnormalities in imaging tests). Lab Interpretation (test code = 66594-5) [facility] 07:32:00* Test Item Value Reference Range Interpretation Comme nts ANA (test code = 1960122495) 31 U/L 35-110 L Lab Interpretation (test cod e = 91037-7) [facility] 07:32:00* Test Item Value Reference Range Interpretation Comme nts LIPASE (test code = 9144086388) 30 U/L 0-220 Lab Interpretation (test cod e = 11278-2) Normal [facility] WITH [id number] 07:26:00* Test Item Value Reference Range Interpretation Comme nts WBC (test code = 6690-2) See_Comment H [Automated message] The system which generated this result transmitted reference range: 4.50 - 13.50 10*3/?L. The reference range was not used to interpret this result as normal/abnormal. RBC (test code = 789-8) See_Comment L [Automated message] The system which generated this result transmitted reference range: 4.10 - 5.10 10*6/?L. The reference range was not used to interpret this result as normal/abnormal. HGB (test code = 718-7) 10.3 g/dL 12-16 L HCT (test code = 4544-3) 31.7 % 36-45 L MCV (test code = 787-2) 91.9 fL 78-95 MCH (test code = 785-6) 29.9 pg 26-32 MCHC (test code = 786-4) 32.5 g/dL 32-36 RDW-SD (test code = 82757-0) 41.2 fL 38.5-49 RDW-CV (test code = 788-0) 12.4 % 11.5-14 PLT (test code = 777-3) See_Comment [Automated message] The system which generated this result transmitted reference range: 135 - 361 10*3/?L. The reference range was not used to interpret this result as normal/abnormal. MPV (test code = 10101-9) 9.2 fL 9.4-13.3 L NRBC/100 WBC (test code = 0532532872) See_Comment [Automated message] The system which generated this result transmitted reference range: 0.0 - 10.0 /100 WBCs. The reference range was not used to interpret this result as normal/abnormal. NRBC x10^3 (test code = 5320740659) <0.01 See_Comment [Automated message] The system which generated this result transmitted reference range: 10*3/?L. The reference range was not used to interpret this result as normal/abnormal. GRAN MAT (NEUT) % (test code = 770-8) 79.1 % IMM GRAN % (test code = 7856823958) 0.70 % LYMPH % (test code = 736-9) 9.1 % MONO % (test code = 5905-5) 10.6 % EOS % (test code = 713-8) 0.3 % BASO % (test code = 706-2) 0.2 % GRAN MAT x10^3(ANC) (test code = 3666008452) 16.86 10*3/uL 1.5-10.3 H IMM GRAN x10^3 (test code = 5690646236) 0.15 10*3/uL 0-0.06 H LYMPH x10^3 (test code = 731-0) 1.95 10*3/uL 0.7-7.4 MONO x10^3 (test code = 742-7) 2.26 10*3/uL 0-0.5 H EOS x10^3 (test code = 711-2) 0.07 10*3/uL 0-0.4 BASO x10^3 (test code = 704-7) 0.04 10*3/uL 0-0.1 Lab Interpretation (test code = 68654-0) [facility]normal [facility] Notes Date/Time Note Provider Source 2023-07-11 12:49:27 See result notes. CLARE SAAVEDRA RN 07/11/2023 12:49 PM Clare Saavedra RN [facility] 2023-07-11 12:03:47 Patient is calling again regarding results. Teresa Ferro [facility] 2023-07-11 11:15:25 Patient is calling back for results. [facility] 2023-07-10 15:15:00 Images from the original note were not included. Venipuncture collection performed by clean technique on the left anticubitus. Total of 1 attempts were made. Slight pressure and a bandage/dressing were applied to the site(s). The patient experienced no complications. The following specimens were processed according to instructions and sent to [facility] laboratories per lab order on 07/10/2023 : LT BLUE SST 1 RED LAV PPT DK GREEN (LiHep) DK GREEN (SodH) MARLEY DK BLUE (K2) DK BLUE (S) ACD Blood Culture NIPT/NTD [facility]"
--- NOTE | 2023-12-01 20:56 | EDPHYS ---
Physician Documentation [facility] Name: Kamilah Pereira Age: 23 yrs Sex: Female : 2000 Arrival Date: 12/01/2023 Time: 19:40 Bed DX1 Private MD: ED Physician Francisco Javier Alfaro HPI: 11/30 20:53 This 23 yrs old Female presents to ER via Ambulatory with complaints of Laceration To sb4 Leg. 20:53 The patient has a laceration related to:. patient states that last night she cut her sb4 leg on her dog's cage, sustaining a puncture would to the left lower leg. she has be cleaning it and putting triple antibiotic ointment on it but is worried about it getting infected. doesn't think her tetanus is up to date. Historical: - Allergies: 20:51 No Known Allergies; cm10 - Home Meds: 20:51 None [Active]; cm10 - PMHx: 20:51 None; cm10 - PSHx: 20:51 Tonsillectomy; cm10 - Immunization history:: Adult Immunizations not up to date, Last tetanus immunization: unknown. - Infectious Disease History:: Denies. - Social history:: Smoking status: Patient denies any tobacco usage or history of. ROS: 20:53 Constitutional: Negative for fever, chills, and weight loss, sb4 20:53 Skin: Positive for laceration(s), of the lateral aspect of left calf, 20:53 All other systems are negative, Exam: 20:53 Constitutional: This is a well developed, well nourished patient who is awake, alert, sb4 and in no acute distress. Head/Face: Normocephalic, atraumatic. Eyes: Extra-ocular motions intact. Periorbital areas with no swelling, redness, or edema. ENT: Mucous membranes moist. 20:53 Skin: injury, puncture(s), that are superficial, of the lateral aspect of left calf, Vital Signs: 20:49 BP 128 / 71; Pulse 94; Resp 18; Temp 99; Pulse Ox 100% on R/A; Weight 108.86 kg; Height cm10 5 ft. 8 in. ; Pain 4/10; 20:49 Body Mass Index 36.49 (108.86 kg, 172.72 cm) cm10 20:49 Pain Scale: Adult cm10 MDM: 20:08 Patient medically screened. sb4 20:53 Data reviewed: vital signs, nurses notes, and as a result, I will discharge patient. sb4 Counseling: I had a detailed discussion with the patient and/or guardian regarding the historical points, exam findings, and any diagnostic results supporting the discharge/admit diagnosis, to return to the emergency department if symptoms worsen or persist or if there are any questions or concerns that arise at home. 11/30 20:53 Order name: Wound Care; Complete Time: 21:32 sb4 Administered Medications: 21:32 Drug: Boostrix Tdap IM 0.5 ml IM once; as a single dose Route: IM; Site: left deltoid; vc1 21:32 Drug: Cephalexin PO 500 mg PO once Route: PO; vc1 Disposition: 20:42 Co-signature as Attending Physician, Francisco Javier Alfaro MD I reviewed the patient's care rt provided by the Advanced Practice Provider and agree with the diagnosis and treatment plan. Disposition Summary: 12/01/23 20:56 Discharge Ordered Notes: Location: Home sb4 Problem: new sb4 Symptoms: have improved sb4 Condition: Stable sb4 Diagnosis - Puncture wound/laceration of left lower leg sb4 Followup: sb4 - With: Private Physician - When: As needed - Reason: Recheck today's complaints, Re-evaluation by your physician Discharge Instructions: - Discharge Summary Sheet sb4 - Puncture Wound, [id number]-[id number] sb4 - Wound Care, Adult sb4 Forms: - Antibiotic Education sb4 - Patient Portal Instructions sb4 - Leadership Thank You Letter sb4 Prescriptions: - Cephalexin 500 mg Oral Capsule - take 1 capsule ORAL route every 8 hours for 10 days; 30 capsule; Refills: 0, sb4 Product Selection Permitted Signatures: Brigida Lafleur RN RN vc1 Hiral Harper PA-C PAJayson sb4 Francisco Javier Alfaro MD MD rt Mandy Hopper RN RN cm10 Corrections: (The following items were deleted from the chart) 20:51 20:51 Immunization history: Adult Immunizations up to date, cm10 cm10
--- NOTE | 2023-12-01 20:56 | ER ---
Nurse's Notes [facility] Name: Kamilah Pereira Age: 23 yrs Sex: Female : 2000 Arrival Date: 12/01/2023 Time: 19:40 Bed DX1 Private MD: Diagnosis: Puncture wound/laceration of left lower leg Presentation: 11/30 20:49 Chief complaint: Patient states: Laceration to left leg. Pt states that she cut herself cm10 with a piece of metal last night. No bleeding noted. Coronavirus screen: Client denies travel out of the [place] in the last 14 days. At this time, the client does not indicate any symptoms associated with coronavirus-19. Ebola Screen: Patient denies travel to an Ebola-affected area in the 21 days before illness onset. No symptoms or risks identified at this time. Complicating Factors: There are no complicating factors for this patient. Initial Sepsis Screen: Does the patient meet any 2 criteria? HR > 90 bpm. Does the patient have a suspected source of infection? No. Patient's initial sepsis screen is negative. Risk Assessment: Do you want to hurt yourself or someone else? Patient reports no desire to harm self or others. Onset of symptoms was December 01, 2023. 20:49 Method Of Arrival: Ambulatory cm10 20:49 Acuity: RUSTY 4 cm10 Triage Assessment: 20:51 General: Appears in no apparent distress. comfortable, Behavior is calm, cooperative. cm10 Neuro: No deficits noted. Level of Consciousness is awake, alert, obeys commands, Oriented to person, place, time, situation, Appropriate for age. Respiratory: No deficits noted. Airway is patent Respiratory effort is even, unlabored, Respiratory pattern is regular, symmetrical. Historical: - Allergies: 20:51 No Known Allergies; cm10 - Home Meds: 20:51 None [Active]; cm10 - PMHx: 20:51 None; cm10 - PSHx: 20:51 Tonsillectomy; cm10 - Immunization history:: Adult Immunizations not up to date, Last tetanus immunization: unknown. - Infectious Disease History:: Denies. - Social history:: Smoking status: Patient denies any tobacco usage or history of. Vital Signs: 20:49 BP 128 / 71; Pulse 94; Resp 18; Temp 99; Pulse Ox 100% on R/A; Weight 108.86 kg; Height cm10 5 ft. 8 in. ; Pain 4/10; 20:49 Body Mass Index 36.49 (108.86 kg, 172.72 cm) cm10 20:49 Pain Scale: Adult cm10 ED Course: 19:46 Patient arrived in ED. gm2 20:01 Hiral Harper [facility]-C [facility] sb4 20:01 Francisco Javier Alfaro MD is Attending Physician. sb4 20:50 Triage completed. cm10 20:51 Arm band placed on Patient placed in waiting room. cm10 Administered Medications: 21:32 Drug: Boostrix Tdap IM 0.5 ml IM once; as a single dose Route: IM; Site: left deltoid; vc1 21:32 Drug: Cephalexin PO 500 mg PO once Route: PO; vc1 Outcome: 20:56 Discharge ordered by . sb4 21:56 Patient left the ED. sb4 Signatures: Brigida Lafleur RN RN vc1 Hiral Harper PA-C PA-C sb4 Mandy Hopper RN RN cm10 Kitty Farrar gm2 Corrections: (The following items were deleted from the chart) 20:51 20:51 Immunization history: Adult Immunizations up to date, 10 cm10
[2023-12-01] MEDS ORDERED: CEPHALEXIN 250 MG CAP ONE (21:14)
[2023-12-01] MEDS ORDERED: TDAP (DIPHTH,PERTUSS(ACELL),TET VAC) 0.5 ML VIAL IMVAC ONE (21:15)
[2023-12-01 21:59] VITALS: BP 128/71; TEMP 99; O2SAT 100
== END 2023-12-01 21:56 | disposition home or self-care (01) ==
LOC: ER 19:40
DX: S81.832A Puncture wound without foreign body, left lower leg, initial encounter (principal); Z23 Encounter for immunization
CPT/HCPCS: 96372; 99284